=== PATIENT | female | born 1995 | race Caucasian/White ===

== ENCOUNTER 2021-05-27 11:12 | Inpatient (IN) | payer SELFPAY ==
[2021-05-27] VITALS (11 sets, daily range): BP systolic 157–219; BP diastolic 107–156; PULSE 87–115; RESP 17–18; TEMP 36.4–37; O2SAT 94–97; BMI 39.2
--- NOTE | 2021-05-27 11:37 | ECG_ITS ---
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 Measurements Intervals [place] Rate: 109 P: 22 LA: 120 QRS: -28 QRSD: 75 T: 119 QT: 351 QTc: 473 Interpretive Statements SINUS TACHYCARDIA POSSIBLE LEFT ATRIAL ENLARGEMENT [-0.1mV P WAVE IN V1/V2] BORDERLINE LEFT AXIS DEVIATION [QRS AXIS < -20] LEFT VENTRICULAR HYPERTROPHY AND ST-T CHANGE [VOLTAGE CRITERIA PLUS ST/T ABNORMALITY] Compared to ECG 05/28/2019 02:55:39 No significant changes Electronically Signed On 05-27-2021 19:32:29 CDT by Arianne Ivan M.D. [id number]
--- NOTE | 2021-05-27 12:43 | PC.PHAR ---
PT STATES SHE TAKES CARE OF HER OWN MEDICATIONS-PT STATES SHE TAKES NO RX MEDICATIONS PT STATES SHE HASNT TAKEN SINCE DECEMBER EXT MED HISTORY SHOWS CRESTOR 40MG DAILY FILLED ON 12/16/20 90D/S, PROZAC 40MG DAILY FILLED 12/14/20 30D/S,QUETIAPINE 100MG BID FILLED 12/09/20 30D/S-PT STATES SHE ONLY TAKES OTC MEDS
[2021-05-27] MEDS: nicotine 21 mg Patch 1 PATCH TRANSDERMA (12:47)
[2021-05-27] MEDS: metoprolol tartrate 25 mg Tablet PO (12:47)
[2021-05-27 12:56] LABS: Basophils # 0.1 10^3/uL (0.0-0.1); Basophils % 0.8 %; Eosinophils # 0.1 10^3/uL (0.0-0.8); Hematocrit 44.5 % (37.0-47.0); Hemoglobin 15.4 g/dL (11.5-15.3); Lymphocytes # 4.1 10^3/uL (0.8-4.8); Lymphocytes % 28.7 %; Mean Corpuscular HGB Conc 34.6 g/dL (30.0-36.0); Mean Corpuscular Volume 89.5 fl (81-99); Mean Platelet Volume 9.4 fL (7.4-10.4); Monocytes # 0.8 10^3/uL (0.2-0.9); Monocytes % 5.6 %; Neutrophils # 8.99 10^3/uL (1.8-7.7); Neutrophils % 63.5 %; Nucleated Red Blood Cells % 0 %; Platelet Count 358 10^3/cmm (130-400); Red Blood Count 4.97 10^6/uL (4.1-5.3); Red Cell Distribution Width 12.8 % (12.1-15.1); White Blood Count 14.2 10^3/uL (4.0-10.0)
--- NOTE | 2021-05-27 13:17 | W.ED.PSYCH ---
HPI - Psych General: Chief Complaint: Psychiatric Symptoms Stated Complaint: SI/ HTN Time Seen by Provider: 05/27/21 11:34 History of Present Illness: HPI Narrative: Patient is a 26-year-old female with past medical history of major depression stroke and pulmonary artery stenosis. She is here with complaints of suicidal ideation Patient states she has had some difficulty with personal relationships over the last several weeks. She is here because she intends on killing herself. Her plan is to do so with a large amount of pills. She has been taking as she says about 100 Benadryl over the last week only 2 in the last 48 hours. Has had to alcoholic drinks in the last day. Does have a history of methamphetamine use but has not used in the last 2 weeks and states that she inhales does not use IV drugs. She does have a history of psychiatric hospitalization last 1 was at age 13. She has not had a suicide attempt since then but does feel that if she went home that she probably would try to kill herself. She is here voluntarily for admittance She is not been taking any psychiatric medicines or any other medicines. Is currently hypertensive. Has a history of a stroke that she was in the ICU for 11 days 2 years ago. Has been under the care of a community associate for congenital pulmonary artery stenosis but is not seen him in quite some time Denies fevers chills chest pain nausea vomiting diarrhea altered mental status syncope or shortness of breath Review of Systems General: Reports: 10 or more systems reviewed and unremarkable except in HPI and below Physical Exam Const: COMMON NORMALS: no acute distress, average body habitus, patient oriented x3 and no limitations HENMT: COMMON NORMALS: normocephalic and atraumatic HEAD & SCALP: normocephalic and atraumatic Resp: COMMON NORMALS: normal respiratory effort, No retractions and clear to auscultation bilaterally AUSCULTATION: clear to auscultation bilaterally Cardio: COMMON NORMALS: regular rate and regular rhythm RATE: regular rate RHYTHM: regular rhythm GI: COMMON NORMALS: Normal to inspection, nondistended, normoactive bowel sounds present Extremity: COMMON NORMALS: normal to inspection and full ROM Neuro: COMMON NORMALS: patient oriented x3, CN's II-XII intact bilaterally, moves all extremities, no focal motor deficits and no sensory deficits noted Psych: COMMON NORMALS: Normal thought process present and speech normal ATTITUDE: Yes calm and Yes engaged ACTIVITY/MOTOR BEHAVIOR: Yes appropriate eye contact and No psychomotor agitation SPEECH: Yes normal speech MOOD & AFFECT: Yes depressed mood THOUGHT PROCESS: Normal thought process present THOUGHT CONTENT: No Normal thought content present, Yes Suicidality present, No Homicidality present and No Phobia(s) present ATTENTION/CONCENTRATION: Yes attention grossly intact MEMORY/COGNITION: Yes memory grossly intact and Yes cognition grossly intact INSIGHT: Good insight present (Psych) JUDGEMENT: Poor judgement present (Psych) Course ED course: Patient is is here voluntarily to be admitted to psychiatry. However sure blood pressure is been extremely high ranging from to 20 on admission were. Gave her a dose of oral metoprolol as well as 2 doses of IV V and hydralazine we will get her blood pressure into the 170s but she does still creep up into the 180s. She is not having any symptoms no chest pain shortness of breath or anything she will call us hypertensive emergency. However should I cannot medically clear at this time for psychiatry. Spoke to hospitalist who agrees to admit her for blood pressure evaluation Patient is not Vital Signs: Vital signs: Vital Signs Temperature 97.6 F 05/27/21 11:20 Pulse Rate 91 05/27/21 16:30 Respiratory Rate 18 05/27/21 16:30 Blood Pressure 177/128 05/27/21 16:30 Pulse Oximetry 94 05/27/21 16:30 MDM - Psych MDM Narrative: Medical decision making narrative: Differential includes suicidality depression hypothyroidism. Patient is actively suicidal and wishes to be admitted to psychiatric facility. I agree that she should not be able to leave AGAINST MEDICAL ADVICE and does need to be admitted. Will get standard psychiatric labs EKG test. Given her hypertension we will give her a dose of metoprolol as well. She has been taking carvedilol in the past Lab Data: Labs: Lab Results 05/27/21 05/27/21 05/27/21 Range/Units 12:23 12:23 12:23 WBC 14.2 H (4.0-10.0) 10^3/ uL RBC 4.97 (4.1-5.3) 10^6/u L Hgb 15.4 H (11.5-15.3) g/dL Hct 44.5 (37.0-47.0) % MCV 89.5 (81-99) fl MCH 31.0 (28.0-34.0) pg MCHC 34.6 (30.0-36.0) g/dL RDW 12.8 (12.1-15.1) % Plt Count 358 (130-400) 10^3/c mm MPV 9.4 (7.4-10.4) fL Neut % (Auto) 63.5 % Lymph % (Auto) 28.7 % [place] % (Auto) 5.6 % Eos % (Auto) 1.0 % Baso % (Auto) 0.8 % Neut # (Auto) 8.99 H (1.8-7.7) 10^3/u L Lymph # (Auto) 4.1 (0.8-4.8) 10^3/u L [place] # (Auto) 0.8 (0.2-0.9) 10^3/u L Eos # (Auto) 0.1 (0.0-0.8) 10^3/u L Baso # (Auto) 0.1 (0.0-0.1) 10^3/u L Nucleated RBC % (a uto) 0 % Nucleated RBCs # 0.0 /100WBC Sodium 138 (136-145) mmol/L Potassium 3.7 (3.5-5.1) mmol/L Chloride 100 (98-107) mmol/L Carbon Dioxide 23 (22-29) mmol/L Anion Gap 18.7 (5-19) BUN 10 (6-20) mg/dL Creatinine 0.6 (0.5-0.9) mg/dL GFR Calculation 119.0 (90-130) mL/min Glucose 186 H (65-115) mg/dL Calculated Osmolal ity 290 (285-295) mOsm/k g Calcium 9.5 (8.5-10.5) mg/dL Total Bilirubin 0.7 (0.15-1.2) mg/dL AST 13 (0-32) U/L ALT 14 (0-33) U/L Alkaline Phosphata se 89 (35-105) IU/L Troponin T Baselin e (0-10) ng/L Troponin T 120 Min absentee-shawnee (0-10) ng/L Delta Troponin T (0-10) ABS# Total Protein 7.5 (6.6-8.7) g/dL Albumin 4.2 (3.5-5.2) g/dL Globulin 3.3 (1.3-4.6) g/dL TSH 0.66 (0.27-4.20) uIU/ mL HCG, Qual Negative (Negative) Urine Color (Yellow) Urine Appearance (CLEAR) Urine pH (5-7) Ur Specific Gravit y (1.005-1.030) Urine Protein (Negative) Urine Glucose (UA) (Normal) Urine Ketones (Negative) Urine Blood (Negative) Urine Nitrate (Negative) Urine Bilirubin (Negative) Urine Urobilinogen (Negative) mg/dL Ur Leukocyte Charity ase (Negative) Urine RBC (0-2) /hpf Urine WBC (0-5) /hpf Ur Squamous Epith Cells (0-5) /hpf Amorphous Sediment Urine Bacteria (NONE) /hpf Salicylates < 0.3 L (3-10) mg/dL Urine Opiates Scre en (Negative) ng/mL Acetaminophen < 5.0 L (10-30) ug/mL Ur Barbiturates Sc reen (Negative) ng/mL Ur Phencyclidine S crn (Negative) ng/mL Ur Amphetamines Sc reen (Negative) ng/mL U Benzodiazepines Scrn (Negative) ng/mL Urine Cocaine Scre en (Negative) ng/mL U Marijuana (THC) Screen (Negative) ng/mL Ethyl Alcohol < 10 (0-10) mg/dL 05/27/21 05/27/21 05/27/21 Range/Units 12:23 12:23 12:23 WBC (4.0-10.0) 10^3/ uL RBC (4.1-5.3) 10^6/u L Hgb (11.5-15.3) g/dL Hct (37.0-47.0) % MCV (81-99) fl MCH (28.0-34.0) pg MCHC (30.0-36.0) g/dL RDW (12.1-15.1) % Plt Count (130-400) 10^3/c mm MPV (7.4-10.4) fL Neut % (Auto) % Lymph % (Auto) % [place] % (Auto) % Eos % (Auto) % Baso % (Auto) % Neut # (Auto) (1.8-7.7) 10^3/u L Lymph # (Auto) (0.8-4.8) 10^3/u L [place] # (Auto) (0.2-0.9) 10^3/u L Eos # (Auto) (0.0-0.8) 10^3/u L Baso # (Auto) (0.0-0.1) 10^3/u L Nucleated RBC % (a uto) % Nucleated RBCs # /100WBC Sodium (136-145) mmol/L Potassium (3.5-5.1) mmol/L Chloride (98-107) mmol/L Carbon Dioxide (22-29) mmol/L Anion Gap (5-19) BUN (6-20) mg/dL Creatinine (0.5-0.9) mg/dL GFR Calculation (90-130) mL/min Glucose (65-115) mg/dL Calculated Osmolal ity (285-295) mOsm/k g Calcium (8.5-10.5) mg/dL Total Bilirubin (0.15-1.2) mg/dL AST (0-32) U/L ALT (0-33) U/L Alkaline Phosphata se (35-105) IU/L Troponin T Baselin e 14 H (0-10) ng/L Troponin T 120 Min absentee-[place] (0-10) ng/L Delta Troponin T (0-10) ABS# Total Protein (6.6-8.7) g/dL Albumin (3.5-5.2) g/dL Globulin (1.3-4.6) g/dL TSH (0.27-4.20) uIU/ mL HCG, Qual (Negative) Urine Color Yellow (Yellow) Urine Appearance Cloudy (CLEAR) Urine pH 5 (5-7) Ur Specific Gravit y 1.020 (1.005-1.030) Urine Protein 3+ H (Negative) Urine Glucose (UA) 2+ H (Normal) Urine Ketones Negative (Negative) Urine Blood Trace H (Negative) Urine Nitrate Positive H (Negative) Urine Bilirubin 1+ H (Negative) Urine Urobilinogen Norm (Negative) mg/dL Ur Leukocyte Charity ase 1+ H (Negative) Urine RBC 5-10 H (0-2) /hpf Urine WBC 25-40 H (0-5) /hpf Ur Squamous Epith Cells 5-10 H (0-5) /hpf Amorphous Sediment Not Reportable Urine Bacteria 4+ H (NONE) /hpf Salicylates (3-10) mg/dL Urine Opiates Scre en Negative (Negative) ng/mL Acetaminophen (10-30) ug/mL Ur Barbiturates Sc reen Negative (Negative) ng/mL Ur Phencyclidine S crn Negative (Negative) ng/mL Ur Amphetamines Sc reen Negative (Negative) ng/mL U Benzodiazepines Scrn Negative (Negative) ng/mL Urine Cocaine Scre en Negative (Negative) ng/mL U Marijuana (THC) Screen Negative (Negative) ng/mL Ethyl Alcohol (0-10) mg/dL 05/27/21 Range/Units 15:23 WBC (4.0-10.0) 10^3/ uL RBC (4.1-5.3) 10^6/u L Hgb (11.5-15.3) g/dL Hct (37.0-47.0) % MCV (81-99) fl MCH (28.0-34.0) pg MCHC (30.0-36.0) g/dL RDW (12.1-15.1) % Plt Count (130-400) 10^3/c mm MPV (7.4-10.4) fL Neut % (Auto) % Lymph % (Auto) % [place] % (Auto) % Eos % (Auto) % Baso % (Auto) % Neut # (Auto) (1.8-7.7) 10^3/u L Lymph # (Auto) (0.8-4.8) 10^3/u L [place] # (Auto) (0.2-0.9) 10^3/u L Eos # (Auto) (0.0-0.8) 10^3/u L Baso # (Auto) (0.0-0.1) 10^3/u L Nucleated RBC % (a uto) % Nucleated RBCs # /100WBC Sodium (136-145) mmol/L Potassium (3.5-5.1) mmol/L Chloride (98-107) mmol/L Carbon Dioxide (22-29) mmol/L Anion Gap (5-19) BUN (6-20) mg/dL Creatinine (0.5-0.9) mg/dL GFR Calculation (90-130) mL/min Glucose (65-115) mg/dL Calculated Osmolal ity (285-295) mOsm/k g Calcium (8.5-10.5) mg/dL Total Bilirubin (0.15-1.2) mg/dL AST (0-32) U/L ALT (0-33) U/L Alkaline Phosphata se (35-105) IU/L Troponin T Baselin e (0-10) ng/L Troponin T 120 Min absent[place] 12.46 H (0-10) ng/L Delta Troponin T -1.54 L (0-10) ABS# Total Protein (6.6-8.7) g/dL Albumin (3.5-5.2) g/dL Globulin (1.3-4.6) g/dL TSH (0.27-4.20) uIU/ mL HCG, Qual (Negative) Urine Color (Yellow) Urine Appearance (CLEAR) Urine pH (5-7) Ur Specific Gravit y (1.005-1.030) Urine Protein (Negative) Urine Glucose (UA) (Normal) Urine Ketones (Negative) Urine Blood (Negative) Urine Nitrate (Negative) Urine Bilirubin (Negative) Urine Urobilinogen (Negative) mg/dL Ur Leukocyte Charity ase (Negative) Urine RBC (0-2) /hpf Urine WBC (0-5) /hpf Ur Squamous Epith Cells (0-5) /hpf Amorphous Sediment Urine Bacteria (NONE) /hpf Salicylates (3-10) mg/dL Urine Opiates Scre en (Negative) ng/mL Acetaminophen (10-30) ug/mL Ur Barbiturates Sc reen (Negative) ng/mL Ur Phencyclidine S crn (Negative) ng/mL Ur Amphetamines Sc reen (Negative) ng/mL U Benzodiazepines Scrn (Negative) ng/mL Urine Cocaine Scre en (Negative) ng/mL U Marijuana (THC) Screen (Negative) ng/mL Ethyl Alcohol (0-10) mg/dL Discharge Plan Discharge Patient Disposition: Admitted As Inpatient Clinical Impression: Suicidal ideation, Hypertension Condition: Stable Prescriptions: No Action Tylenol Arthritis Pain 650 mg Tablet Extended Release 1,300 mg PO Q12H PRN (Reason: Pain) RF: 0 Benadryl 25 mg Capsule 50 mg PO Q4H PRN (Reason: UNKNOWN) RF: 0 Tylenol PM Extra Strength 25-500 mg Tablet 2 tab PO Q4H PRN (Reason: UNKNOWN) RF: 0 NyQuil Liquicaps Capsule 2 cap PO Q4H PRN (Reason: UNKNOWN) RF: 0 Referrals: Margarita Ward FNP [Primary Care Provider] - Discharge Activity: Resume usual activity Coding Level of Care Code ED Radiophone Operator for Chg Fwd Exam Comprehensive
[2021-05-27 13:25] LABS: Alanine Aminotransferase 14 U/L (0-33); Albumin Level 4.2 g/dL (3.5-5.2); Alkaline Phosphatase 89 IU/L (35-105); Anion Gap 18.7 (5-19); Aspartate Amino Transferase 13 U/L (0-32); Blood Urea Nitrogen 10 mg/dL (6-20); Calcium 9.5 mg/dL (8.5-10.5); Carbon Dioxide 23 mmol/L (22-29); Chloride 100 mmol/L (98-107); Globulin 3.3 g/dL (1.3-4.6); Glucose 186 mg/dL (65-115); Osmolality Calculated 290 mOsm/kg (285-295); Potassium 3.7 mmol/L (3.5-5.1); Sodium 138 mmol/L (136-145); Thyroid Stimulating Hormone 0.66 uIU/mL (0.27-4.20); Total Bilirubin 0.7 mg/dL (0.15-1.2); Total Protein 7.5 g/dL (6.6-8.7)
[2021-05-27 13:27] LABS: Acetaminophen < 5.0 ug/mL (10-30); Alcohol Level < 10 mg/dL (0-10); Salicylate < 0.3 mg/dL (3-10)
[2021-05-27 13:32] LABS: Add Urine Microscopic? YES; Bilirubin Urine 1+ (Negative); Blood Urine Trace (Negative); Glucose Urine UA 2+ (Normal); HCG Qualitative Urine. Negative (Negative); Ketones Urine Negative (Negative); Leukocyte Esterase Urine 1+ (Negative); Nitrate Urine Positive (Negative); Protein Urine 3+ (Negative); Urine Appearance Cloudy (CLEAR); Urine Color Yellow (Yellow); Urobilinogen Urine Norm (Negative); pH Urine 5 (5-7)
[2021-05-27 13:43] LABS: Add Urine Culture? Yes; Bacteria Urine 4+ /hpf; WBC Urine 25-40 /hpf (0-5)
[2021-05-27 13:53] LABS: Amphetamines Screen Urine Negative (Negative); Barbiturates Screen Urine Negative (Negative); Benzodiazepines Screen Urine Negative (Negative); Cocaine Screen Urine Negative (Negative); Opiate Screen Urine Negative (Negative); PCP Screen Urine Negative (Negative); THC Screen Urine Negative (Negative)
[2021-05-27] MEDS: metoprolol tartrate 1 mg/1 mL SDV 5 mL 2.5 MG IVP (14:23)
[2021-05-27 14:53] LABS: Troponin(5th) Baseline 14 ng/L (0-10)
[2021-05-27] MEDS: metoprolol tartrate 1 mg/1 mL SDV 5 mL 5 MG IVP (16:02)
[2021-05-27 16:08] LABS: Troponin 5 2HR 12.46 ng/L (0-10)
[2021-05-27 16:10] LABS: Troponin 5 2HR Delta -1.54 ABS# (0-10)
[2021-05-27] MEDS: hyDRALAzine 25 mg Tablet PO ×2 (16:28→21:19)
--- NOTE | 2021-05-27 20:59 | PM.HP ---
Providers/Chief Complaint Admitting Physician: Naz Rose Primary Care Provider: Margarita Ward Chief Complaint: SI/ HTN History of Present Illness 26 year old with past medical history of methamphetamine abuse, active tobacco abuse, genital herpes, diabetes mellitus, CVA ( left cortical / subcortical with in distal MCA territory), and hypertension who is presenting to ER with suicidal ideations. Also noted to have intermittent episodes of palpitation. Denied chest pain or dyspnea. No recent fever, chill, nausea or vomiting. During work up in ER patient was noted to be hypertensive. She stated she has not been compliant with any of her chronic medication including antihypertensive and insulin since december of this year. Patient was previously admitted at [facility] from 05/29 to 06/27/2019 during which time she was noted to have hypertensive emergency, CVA, ATN. Patient was discharged on Coreg 25 mg Po BID, Hydralazine 25 mg PO q8hr, Lantus 20 units Qhs and Novolog 5 units TIDAC. Lab work up on arrival to ER showed WBC of 14.2, hemoglobin of 15.4, hematocrit 44.5 and a platelet count of 358. Sodium 138, potassium 3.7, chloride 100, bicarb 23, BUN 10 and creatinine of 0.6. Glucose of 186. LFTs within normal limits. Initial delta troponin of -1.54. beta hCG negative. TSH was 0.66. urinalysis showed 2+ glucose, trace blood, positive nitrites, 1+ leukocyte esterase, 25 to 30 wbcs and 4+ bacteria. Urinary drug screen was negative. ETOH level negative.Initial vital signs showed systolic blood pressure was over 200 and diastolic was over 130. In emergency room patient was given metoprolol 25 mg p.o. x1, 7.5 mg IV, hydralazine 25 mg p.o. x1. Patient was also placed on 96 hour hold. Review of Systems General: Reports: 10 or more systems reviewed and unremarkable except in HPI and below Medications/Allergies Home Medications Medication Instructions Recorded Confirmed Last Taken Type acetaminophen [Tylenol Arthritis 1,300 mg PO Q12H PRN 05/27/21 05/27/21 Unknown History Pain] diphenhydramine HCl [Benadryl] 50 mg PO Q4H PRN 05/27/21 05/27/21 05/26/21 History diphenhydramine-acetaminophen 2 tab PO Q4H PRN 05/27/21 05/27/21 Unknown History [Tylenol PM Extra Strength] [id number]-acetaminophen 2 cap PO Q4H PRN 05/27/21 05/27/21 05/26/21 History [NyQuil Liquicaps] Allergies Allergy/AdvReac Type Severity Reaction Status Date / Time Unable to Assess Allergy Unverified 05/27/21 20:08 PFSH Acute PFSH: Medical History (Updated 05/27/21 @ 21:04 by Naz Rose MD) Diabetes mellitus History of CVA (cerebrovascular accident) Hypertension Methamphetamine abuse No pertinent family history Surgical History (Updated 05/27/21 @ 21:02 by Naz Rose MD) No pertinent past surgical history Social History (Updated 05/27/21 @ 21:03 by Naz Rose MD) Smoking and tobacco status: current every day smoker Alcohol intake: never Substance/Drug Use: former Vitals/I&O/Wt Last Vital Signs Temp 98.6 F 05/27/21 20:06 Pulse 89 05/27/21 20:06 Resp 17 05/27/21 20:06 BP 161/120 05/27/21 20:06 Pulse Ox 95 05/27/21 20:06 Weight last 48 hrs Weight 91.172 kg Weight 91.172 kg Physical Exam Narrative: EXAM NARRATIVE: General-Alert awake oriented x3 HEENT -grossly unremarkable CVS- normal sinus rhythm , no murmurs Chest- nonlabored respiration , clear to auscultation Abdomen- nondistended Extremities-no edema Data : 05/27/21 12:23 05/27/21 12:23 A&P Assessment and plan (1) Hypertension: Status: Acute Qualifiers: Hypertension type: unspecified Qualified Code(s): I10 - Essential (primary) hypertension (2) Suicidal ideation: Status: Acute (3) Diabetes mellitus: Status: Acute (4) Abnormal urinalysis: Status: Acute Additional A&P Information Hypertensive Urgency Hydralazine 25 mg p.o. q.i.d. Lisinopril 5 mg PO daily Labetalol 20 mg IV p.r.n. Will likely resume Coreg in am Will consider adding CCB Monitor on Tele ECHO from 2019 reviewed - pEF Gradual improvement over next 12-24hr Abnormal UA suspected UTI Rocephin 1g IV q24hr Follow up on culture Suicidal Ideation 96 hr hold Suicide sitter Psych consult once medically stable Likely will need inpatient BG unit admission Diabetes Mellitus Check a1c in AM Sliding scale insulin Lantus 10 units QHS Diabetic Diet Hx of L. Distal MCA CVA No residual deficits Aspirin 81 mg PO daily Check lipid panel in am Neuro checks q4hr Tobacco Abuse Nicotine Patch Hx of Meth abuse UDS negative Denied active use DVT ppx Lovenox 40 mg SQ daily Attestations Medical Necessity Statement*: Require 2 midnight stay in hospital for evaluation treatment of hypertensive emergency and suicidal ideation Time Spent in Patient Care: Greater than 35 minutes (>than 50% of time spent in counselling and/or direct pt care on unit). Coding Level of Care Code Acute Personal Injury Legal Assistant for Rita Mccartney Diagnoses Hypertension I10 Hypertension type: unspecified Suicidal ideation R45.851 Diabetes mellitus E11.9 Abnormal urinalysis R82.90
[2021-05-27] MEDS: enoxaparin 40 mg/0.4 mL Syringe SUBCUT (21:20)
[2021-05-27 21:33] LABS: Glucose Point of Care 362 mg/dL (70-110)
[2021-05-28] VITALS (10 sets, daily range): BP systolic 126–168; BP diastolic 81–121; PULSE 87–107; RESP 17–20; TEMP 36.6–37.1; O2SAT 93–98
[2021-05-28] MEDS: temazepam 15 mg Capsule 30 MG PO (00:39)
[2021-05-28] MEDS: labetalol 5 mg/mL SDV 20mL 20 MG IVP ×2 (02:51→14:55)
--- NOTE | 2021-05-28 05:06 | PC.NURSE ---
Shift Note Frequent safety and comfort rounds continue. Orders and/or nursing care completed as indicated. Patient monitored for response to intervention and treatment(s). Education provided includes medication side effects of restoril and novolog. Patient verbalized understanding. Patient was restless at the beginning of shift but after receiving the restoril she rested well. Patient did not complain of any pain or have any other complaints. Patient is currently resting comfortably in bed. Will continue to monitor.
[2021-05-28 06:44] LABS: Glucose Point of Care 145 mg/dL (70-110)
[2021-05-28 08:14] LABS: Glucose Point of Care 170 mg/dL (70-110)
[2021-05-28] MEDS: hyDRALAzine 25 mg Tablet PO ×4 (08:39→20:55)
[2021-05-28] MEDS: lisinopril 5 mg Tablet PO (08:39)
[2021-05-28 09:51] LABS: Basophils # 0.1 10^3/uL (0.0-0.1); Basophils % 0.8 %; Eosinophils # 0.1 10^3/uL (0.0-0.8); Eosinophils % 1.2 %; Hematocrit 41.6 % (37.0-47.0); Lymphocytes # 3.5 10^3/uL (0.8-4.8); Lymphocytes % 30.9 %; Mean Corpuscular HGB Conc 33.7 g/dL (30.0-36.0); Mean Corpuscular Hemoglobin 31.5 pg (28.0-34.0); Mean Corpuscular Volume 93.7 fl (81-99); Mean Platelet Volume 9.6 fL (7.4-10.4); Monocytes # 0.6 10^3/uL (0.2-0.9); Neutrophils % 61.7 %; Nucleated Red Blood Cells % 0 %; Platelet Count 299 10^3/cmm (130-400); Red Blood Count 4.44 10^6/uL (4.1-5.3); White Blood Count 11.4 10^3/uL (4.0-10.0)
[2021-05-28 10:50] LABS: Chol HDL Ratio 8.94 mg/dL (0.0-4.40); Cholesterol 286 mg/dL (0-200); HDL Cholesterol 32 mg/dL (60-100); Triglycerides 576 mg/dL (0-150)
[2021-05-28 10:51] LABS: Alanine Aminotransferase 13 U/L (0-33); Albumin Level 3.5 g/dL (3.5-5.2); Alkaline Phosphatase 72 IU/L (35-105); Anion Gap 17.4 (5-19); Aspartate Amino Transferase 13 U/L (0-32); Blood Urea Nitrogen 15 mg/dL (6-20); Calcium 9.3 mg/dL (8.5-10.5); Carbon Dioxide 24 mmol/L (22-29); Chloride 99 mmol/L (98-107); Globulin 3.2 g/dL (1.3-4.6); Glomerular Filtration Rate 99.6 mL/min (90-130); Glucose 233 mg/dL (65-115); Magnesium 1.3 mg/dL (1.7-2.3); Osmolality Calculated 292 mOsm/kg (285-295); Potassium 3.4 mmol/L (3.5-5.1); Sodium 137 mmol/L (136-145); Thyroid Stimulating Hormone 0.57 uIU/mL (0.27-4.20); Total Bilirubin 0.6 mg/dL (0.15-1.2); Total Protein 6.7 g/dL (6.6-8.7)
[2021-05-28 11:31] LABS: Glucose Point of Care 178 mg/dL (70-110)
--- NOTE | 2021-05-28 14:11 | PM.PN ---
Subjective Subjective: Interval history: No new complaints overnight. Patients blood pressure had improved. Denies chest pain or shortness of breath. Medications: Reviewed: Yes Vitals/I&O/Wt Last Vital Signs Temp 98.2 F 05/28/21 03:43 Pulse 89 05/28/21 06:58 Resp 17 05/28/21 03:43 BP 145/99 05/28/21 11:19 Pulse Ox 93 05/28/21 03:43 05/27/21 05/28/21 05/28/21 22:59 06:59 14:59 Intake Total 240 / 240 Balance 240 / 240 Weight last 48 hrs Weight 91.172 kg Weight 91.172 kg Physical Exam Narrative: EXAM NARRATIVE: General-Alert awake oriented x3 HEENT -grossly unremarkable CVS- normal sinus rhythm , no murmurs Chest- nonlabored respiration , clear to auscultation Abdomen- nondistended Extremities-no edema Data : 05/28/21 09:08 05/28/21 09:08 A&P Assessment and plan (1) Hypertension: Status: Acute Qualifiers: Hypertension type: unspecified Qualified Code(s): I10 - Essential (primary) hypertension (2) Suicidal ideation: Status: Acute (3) Diabetes mellitus: Status: Acute (4) Abnormal urinalysis: Status: Acute Additional A&P Information Hypertensive Urgency Hydralazine 25 mg p.o. q.i.d. Lisinopril 5 mg PO daily Labetalol 20 mg IV p.r.n. Coreg 25 mg PO BID added in am Will consider adding CCB if needed Monitor on Tele ECHO from 2019 reviewed - pEF Abnormal UA suspected UTI Ciprofloxacin 250 mg PO BID x 3 days Follow up on culture Suicidal Ideation 96 hr hold Suicide sitter Psych consult once medically stable Likely will need inpatient BG unit admission Diabetes Mellitus Sliding scale insulin Lantus 10 units QHS Diabetic Diet Hx of L. Distal MCA CVA No residual deficits Aspirin 81 mg PO daily Check lipid panel in am Neuro checks q4hr Tobacco Abuse Nicotine Patch Hx of Meth abuse UDS negative Denied active use DVT ppx Lovenox 40 mg SQ daily Attestations Medical Necessity Statement*: Will require further hospitalization for management o hypertensive urgency in suicidal ideation Time Spent in Patient Care: Greater than 35 minutes Coding Level of Care Code Acute Construction Estimator for [facility] Fwd Diagnoses Hypertension I10 Hypertension type: unspecified Suicidal ideation R45.851 Diabetes mellitus E11.9 Abnormal urinalysis R82.90
[2021-05-28] MEDS: nicotine 21 mg Patch 1 PATCH TRANSDERMA (14:55)
[2021-05-28 15:30] LABS: LDL Cholesterol Direct 180 mg/dL (0-100)
[2021-05-28 15:48] LABS: Estmated Average Glucose 180; Hemoglobin A1C 7.9 % (4.0-6.0)
[2021-05-28] MEDS: LORazepam 2 mg/mL INJ 1 mL 0.5 MG IVP (16:55)
[2021-05-28 17:55] LABS: Glucose Point of Care 277 mg/dL (70-110)
[2021-05-28 20:38] LABS: Glucose Point of Care 261 mg/dL (70-110)
[2021-05-28] MEDS: carvedilol 25 mg Tablet PO (20:55)
[2021-05-28] MEDS: ciprofloxacin 500 mg Tablet 250 MG PO (20:55)
[2021-05-28] MEDS: enoxaparin 40 mg/0.4 mL Syringe SUBCUT (20:56)
[2021-05-29] VITALS (8 sets, daily range): BP systolic 147–184; BP diastolic 94–113; PULSE 87–98; RESP 18; TEMP 36.5–37; O2SAT 90–97
[2021-05-29] MEDS: LORazepam 2 mg/mL INJ 1 mL 0.5 MG IVP ×3 (02:06→21:08)
[2021-05-29 06:40] LABS: Glucose Point of Care 197 mg/dL (70-110)
--- NOTE | 2021-05-29 08:09 | PC.CHAP ---
Pastoral Care Encounter/Spiritual Assessment Type of Contact [] Declined dental instrument maker visit [] Patient/Family/Request visit [] Outpatient visit [] Follow-up visit [] Physician referral [] Code/Alert [X] Routine visit [] Staff referral [] Actively dying [X] Patient sleeping [] Family support [] [] Out of room [] Palliative care [] [] Receiving care in room [] Pre-surgical visit [] Trauma [] Long length of stay [] ICU visit [] Other: Relational/Emotional Strength [] Patient feels connected with others/family/visitors/staff [] Distress [] Loneliness/isolation [] Abandonment Spirituality of Patient [] Person of [place] [] Attends Zoroastrian of their [place] [] Believes in Prayer [] Reads Bible or Voodoo materials [] There are Spiritual issues to be addressed Automatic Riveting Machine Operator Interventions [] Prayer [] Active listening [] Non-anxious presence [] Spiritual/emotional support [] Crisis/trauma care [] Spiritual counseling [] Bereavement support [] Provided bereavement packet [] Provided Bible/devotional materials [] Provided toy/stuffed animal, coloring book to patient or family member [] Provided Communion [] Anointing/[place] [] Salvation [] Completed spiritual assessment [] Other: Impact on Illness or Injury [] Angry [] Fearful [] Anxious [] Often cries [] Exhaustion [] Unable to work [] Unable to attend anabaptist [] Unable to walk/stand [] Unable to read [] Unable to drive [] Unable to eat/drink [] Unable to sleep [] Unable to be with family [] Patient intubated [] Other: Summary Time spent with patient
[2021-05-29] MEDS: hyDRALAzine 25 mg Tablet PO (09:10)
[2021-05-29] MEDS: carvedilol 25 mg Tablet PO ×2 (09:10→18:18)
[2021-05-29] MEDS: nicotine 21 mg Patch 1 PATCH TRANSDERMA (09:10)
[2021-05-29] MEDS: lisinopril 5 mg Tablet PO (09:10)
[2021-05-29] MEDS: aspirin 81 mg EC Tablet PO (09:10)
[2021-05-29] MEDS: ciprofloxacin 500 mg Tablet 250 MG PO ×2 (09:10→21:11)
[2021-05-29 10:55] LABS: Glucose Point of Care 200 mg/dL (70-110)
[2021-05-29] MEDS: polyethylene glycol 3350 Pkt 17 gm PO (13:06)
[2021-05-29] MEDS: hyDRALAzine 25 mg Tablet 50 MG PO ×2 (13:07→18:18)
[2021-05-29 16:51] LABS: Glucose Point of Care 212 mg/dL (70-110)
--- NOTE | 2021-05-29 17:20 | PM.PN ---
Subjective Subjective: Interval history: Patient has been very anxiousAnd tearful overnight. Is wanting to be transferred to behavior health unit. No beds currently. Continued to be hypertensive. No chest pain.. Medications: Reviewed: Yes Vitals/I&O/Wt Last Vital Signs Temp 98.0 F 05/29/21 15:56 Pulse 98 05/29/21 15:56 Resp 18 05/29/21 15:56 BP 158/99 05/29/21 15:56 Pulse Ox 90 05/29/21 15:56 05/29/21 05/29/21 05/29/21 06:59 14:59 22:59 Intake Total 600 / 600 Output Total 0 / 0 Balance 0 / 720 600 / 600 Weight last 48 hrs Weight 91.172 kg Physical Exam Narrative: EXAM NARRATIVE: General-Alert awake oriented x3 HEENT -grossly unremarkable CVS- normal sinus rhythm , no murmurs Chest- nonlabored respiration , clear to auscultation Abdomen- nondistended Extremities-no edema Data : 05/28/21 09:08 05/28/21 09:08 Micro: Microbiology 05/27/21 12:23 Urine Culture - Final Urine,Clean Catch Escherichia coli A&P Assessment and plan (1) Hypertension: Status: Acute Qualifiers: Hypertension type: unspecified Qualified Code(s): I10 - Essential (primary) hypertension (2) Suicidal ideation: Status: Acute (3) Diabetes mellitus: Status: Acute (4) Abnormal urinalysis: Status: Acute Additional A&P Information Hypertensive Urgency Hydralazine 25 mg p.o. q.i.d. - Increased to 50 mg PO Q6hr Lisinopril 5 mg PO daily Coreg 25 mg PO BID D.C Lebatalol Will consider adding CCB if needed Monitor on Tele ECHO from 2019 reviewed - pEF Exacerbated with anxiety Outpatient follow up for 2ndary htn work up Abnormal UA suspected UTI Ciprofloxacin 250 mg PO BID x 3 days Follow up on culture Repeat labs in am Suicidal Ideation 96 hr hold Suicide sitter Psych consult once medically stable Likely will need inpatient BG unit admission Diabetes Mellitus Sliding scale insulin Lantus 10 units QHS Diabetic Diet Hx of L. Distal MCA CVA No residual deficits Aspirin 81 mg PO daily Neuro checks q4hr Tobacco Abuse Nicotine Patch Hx of Meth abuse UDS negative Denied active use DVT ppx Lovenox 40 mg SQ daily Attestations Medical Necessity Statement*: Require further hospitalizationFor management of hypertensive urgency Time Spent in Patient Care: Greater than 35 minutes (>than 50% of time spent in counselling and/or direct pt care on unit). Coding Level of Care Code Acute Tufting Machine Operator Single Needle for g Fwd Diagnoses Hypertension I10 Hypertension type: unspecified Suicidal ideation R45.851 Diabetes mellitus E11.9 Abnormal urinalysis R82.90
[2021-05-29] MEDS: temazepam 15 mg Capsule 30 MG PO (21:11)
[2021-05-29] MEDS: enoxaparin 40 mg/0.4 mL Syringe SUBCUT (21:24)
--- NOTE | 2021-05-29 22:29 | PC.NURSE ---
Patient stats that she is feeling better today but feels a breakdown coming on. No negative thoughts or thoughts of suicide, although she is sad and anxious. Patient expressed concern about resting tonight and says that she was not able to rest the night before due to dreaming of her and waking up very anxious and sad. Patient was tearful when asking her dreams and how they made her feel. Patient states that she gets very sad thinking about her and that everything around her makes her think of her. Patient says that she fears a breakdown because she knows the type of behavior that comes with a breakdown, which is anger and anxiousness causing her act out in violence. This nurse educated patient on depression, anxiety, and SI. Patient was given prescribed Ativan and Restoril. Patient is tearful when expressing that she hasn't felt like anybody has cared or understand her condition and is hopeful to finally get some rest tonight.
[2021-05-30] VITALS (9 sets, daily range): BP systolic 125–168; BP diastolic 83–116; PULSE 84–97; RESP 15–18; TEMP 36.4–37.1; O2SAT 95–98; BMI 39.2
[2021-05-30] MEDS: hyDRALAzine 25 mg Tablet 50 MG PO ×4 (01:13→18:15)
[2021-05-30] MEDS: LORazepam 2 mg/mL INJ 1 mL 0.5 MG IVP ×3 (01:15→20:48)
[2021-05-30 05:49] LABS: Basophils # 0.1 10^3/uL (0.0-0.1); Basophils % 0.9 %; Eosinophils # 0.2 10^3/uL (0.0-0.8); Eosinophils % 1.9 %; Hematocrit 37.6 % (37.0-47.0); Hemoglobin 12.6 g/dL (11.5-15.3); Lymphocytes # 4.3 10^3/uL (0.8-4.8); Lymphocytes % 41.3 %; Mean Corpuscular HGB Conc 33.5 g/dL (30.0-36.0); Mean Corpuscular Hemoglobin 31.3 pg (28.0-34.0); Mean Corpuscular Volume 93.5 fl (81-99); Mean Platelet Volume 10.3 fL (7.4-10.4); Monocytes # 0.6 10^3/uL (0.2-0.9); Monocytes % 5.4 %; Neutrophils # 5.19 10^3/uL (1.8-7.7); Neutrophils % 49.9 %; Nucleated Red Blood Cells % 0 %; Platelet Count 256 10^3/cmm (130-400); Red Blood Count 4.02 10^6/uL (4.1-5.3); Red Cell Distribution Width 12.8 % (12.1-15.1); White Blood Count 10.4 10^3/uL (4.0-10.0)
[2021-05-30 06:07] LABS: Alanine Aminotransferase 10 U/L (0-33); Albumin Level 3.2 g/dL (3.5-5.2); Alkaline Phosphatase 64 IU/L (35-105); Anion Gap 14.8 (5-19); Aspartate Amino Transferase 10 U/L (0-32); Blood Urea Nitrogen 14 mg/dL (6-20); Calcium 8.5 mg/dL (8.5-10.5); Carbon Dioxide 22 mmol/L (22-29); Chloride 104 mmol/L (98-107); Globulin 2.5 g/dL (1.3-4.6); Glomerular Filtration Rate 146.9 mL/min (90-130); Glucose 167 mg/dL (65-115); Magnesium 1.5 mg/dL (1.7-2.3); Osmolality Calculated 288 mOsm/kg (285-295); Potassium 3.8 mmol/L (3.5-5.1); Sodium 137 mmol/L (136-145); Total Bilirubin 0.3 mg/dL (0.15-1.2); Total Protein 5.7 g/dL (6.6-8.7)
[2021-05-30 08:07] LABS: Glucose Point of Care 154 mg/dL (70-110)
[2021-05-30] MEDS: metformin 500 mg Tablet 1000 MG PO ×2 (09:14→18:15)
[2021-05-30] MEDS: ciprofloxacin 500 mg Tablet 250 MG PO (09:15)
[2021-05-30] MEDS: lisinopril 20 mg Tablet PO (09:16)
[2021-05-30] MEDS: carvedilol 25 mg Tablet PO ×2 (09:16→18:15)
[2021-05-30] MEDS: sitagliptin 100 mg Tablet PO (09:18)
[2021-05-30] MEDS: aspirin 81 mg EC Tablet PO (09:18)
[2021-05-30] MEDS: nicotine 21 mg Patch 1 PATCH TRANSDERMA (09:19)
[2021-05-30 10:45] LABS: Glucose Point of Care 151 mg/dL (70-110)
[2021-05-30 10:45] LABS: Glucose Point of Care 221 mg/dL (70-110)
[2021-05-30 11:37] LABS: Glucose Point of Care 201 mg/dL (70-110)
[2021-05-30] MEDS: ondansetron 2 mg/ML SDV 2 mL 4 MG IVP (15:09)
--- NOTE | 2021-05-30 17:07 | P.PN_ITS ---
Subjective Subjective: Interval history: No events overnight. Sitter at bedside. Examination today patient sitting calmly comfortably in bed. States she is anxious. Wants to go to [facility]. Denies any nausea vomiting, headache. States she has been on antihypertensives 3 of them for long time in her life and has not taken any medication for over 3 weeks. Also states she used to take insulin for her diabetes but has not taken any for 3 weeks. Currently denies any nausea vomiting, headache. Medications: Reviewed: Yes Vitals/I&O/Wt Last Vital Signs Temp 98.6 F 05/30/21 15:55 Pulse 97 05/30/21 15:55 Resp 18 05/30/21 15:55 BP 125/87 05/30/21 15:55 Pulse Ox 98 05/30/21 15:55 05/30/21 05/30/21 05/30/21 06:59 14:59 22:59 Intake Total 920 / 920 Balance 920 / 920 Physical Exam Narrative: EXAM NARRATIVE: General-Alert awake oriented x3 HEENT -grossly unremarkable CVS- normal sinus rhythm , no murmurs Chest- nonlabored respiration , clear to auscultation Abdomen- nondistended Extremities-no edema Data : 05/30/21 04:38 05/30/21 04:38 A&P Assessment and plan (1) Hypertension: Status: Acute Qualifiers: Hypertension type: unspecified Qualified Code(s): I10 - Essential (primary) hypertension (2) Suicidal ideation: Status: Acute (3) Diabetes mellitus: Status: Acute (4) Abnormal urinalysis: Status: Acute Additional A&P Information Hypertensive Urgency Blood pressure is better but still elevated. Continue with hydralazine 50 mg every 6 hourly, carvedilol 25 mg twice daily. Increase the dose of lisinopril to 20 mg oral daily. Monitor on Tele ECHO from 2019 reviewed - pEF Exacerbated with anxiety Outpatient follow up for 2ndary htn work up Abnormal UA suspected UTI No dysuria. Continue ciprofloxacin to 50 mg twice daily to finish a 3-day course. No leukocytosis. No fever. Suicidal Ideation 96 hr hold Suicide sitter Psych consult. Likely will need inpatient BG unit admission Diabetes Mellitus Start patient on Januvia, Metformin. Patient is agreeable to take both the medications. Continue with insulin sliding scale at moderate dose protocol. Hx of L. Distal MCA CVA No residual deficits Aspirin 81 mg PO daily Neuro checks q4hr Tobacco Abuse Nicotine Patch Hx of Meth abuse UDS negative Denied active use DVT ppx Lovenox 40 mg SQ daily Patient is medically cleared to be transferred to [facility] once accepted. Patient is to continue taking carvedilol, hydralazine, lisinopril at current dose. Patient is to continue taking Metformin and Januvia along with insulin sliding scale. Patient can stop Metformin if has any diarrhea. Patient to follow-up with a primary care provider with a blood pressure diary in 2 weeks on discharge. Attestations Medical Necessity Statement*: Patient requires further hospitalization for 96- hour hold, suicidal ideation with hypertension and type 2 diabetes mellitus. Time Spent in Patient Care: Greater than 35 minutes (>than 50% of time spent in counselling and/or direct pt care on unit) . Coding Level of Care Code Acute Plastic Surgery Assistant for Rita Blankd Diagnoses Hypertension I10 Hypertension type: unspecified Suicidal ideation R45.851 Diabetes mellitus E11.9 Abnormal urinalysis R82.90
[2021-05-30 17:15] LABS: Glucose Point of Care 225 mg/dL (70-110)
[2021-05-30 20:09] LABS: Glucose Point of Care 209 mg/dL (70-110)
[2021-05-30] MEDS: enoxaparin 40 mg/0.4 mL Syringe SUBCUT (20:20)
[2021-05-30] MEDS: temazepam 15 mg Capsule 30 MG PO (20:50)
[2021-05-31] MEDS: hyDRALAzine 25 mg Tablet 50 MG PO ×4 (01:47→19:19)
--- NOTE | 2021-05-31 02:12 | PC.NURSE ---
Patient verified that she had no known allergies
[2021-05-31 06:00] VITALS: BP 125/81; PULSE 91; RESP 15; TEMP 36.6; O2SAT 96
[2021-05-31 06:57] LABS: Glucose Point of Care 200 mg/dL (70-110)
[2021-05-31 07:45] VITALS: BP 125/81; PULSE 91; RESP 15; TEMP 36.6
--- NOTE | 2021-05-31 08:22 | PM.PN ---
Subjective Subjective: Interval history: In last 24 hours patient was transferred to [facility]. No reported acute events overnight. Has remained hemodynamically stable and afebrile. Blood sugars better controlled. Medications: Reviewed: Yes Vitals/I&O/Wt Last Vital Signs Temp 97.9 F 05/31/21 07:45 Pulse 91 05/31/21 07:45 Resp 15 05/31/21 07:45 BP 125/81 05/31/21 07:45 Pulse Ox 96 05/31/21 06:00 05/30/21 05/31/21 05/31/21 22:59 06:59 14:59 Intake Total 360 / 1280 Balance 360 / 1280 Weight last 48 hrs Weight 91.172 kg Physical Exam Narrative: EXAM NARRATIVE: General-Alert awake oriented x3 HEENT -grossly unremarkable CVS- normal sinus rhythm , no murmurs Chest- nonlabored respiration , clear to auscultation Abdomen- nondistended Extremities-no edema Data : 05/30/21 04:38 05/30/21 04:38 A&P Assessment and plan (1) Hypertension: Status: Acute Qualifiers: Hypertension type: unspecified Qualified Code(s): I10 - Essential (primary) hypertension (2) Suicidal ideation: Status: Acute (3) Diabetes mellitus: Status: Acute (4) Abnormal urinalysis: Status: Acute (5) Noncompliance: Status: Acute Additional A&P Information Hypertensive Urgency: Resolved. Hypertension: Blood pressures better now. Continue with hydralazine 50 every 6, carvedilol 25 twice daily, lisinopril 20 mg oral daily. Repeat CMP in 1 weeks. Patient can be discharged on above medications. ECHO from 2019 reviewed - pEF Exacerbated with anxiety Outpatient follow up for 2ndary htn work up Abnormal UA suspected UTI No dysuria. Continue ciprofloxacin to 50 mg twice daily to finish a 3-day course. No leukocytosis. No fever. Suicidal Ideation As per psychiatric team. Diabetes Mellitus Continue with insulin sliding scale. Continue Januvia and Metformin. Patient is not reporting any allergic reaction for now. Hx of L. Distal MCA CVA No residual deficits Aspirin 81 mg PO daily Neuro checks q4hr Tobacco Abuse Nicotine Patch Hx of Meth abuse UDS negative Denied active use DVT ppx Lovenox 40 mg SQ daily Patient should be discharged on hydralazine 50 every 6, carvedilol 25 twice daily, Nexium 20 mg, Januvia 100 mg, Metformin thousand twice daily. Patient does not have a PCP on file. Will ask manager of case management to help with setting up appointment for PCP on discharge. Repeat CMP in 1 week. Medicine will sign off. Please reconsult if needed. Attestations Medical Necessity Statement*: Requires further hospitalization ion for management of suicidal ideation as per psychiatry, uncontrolled hypertension and diabetes. Time Spent in Patient Care: 16 - 35 minutes Coding Level of Care Code Acute Electrician Manager for [facility] Fwd Diagnoses Hypertension I10 Hypertension type: unspecified Suicidal ideation R45.851 Diabetes mellitus E11.9 Abnormal urinalysis R82.90 Noncompliance Z91.19
[2021-05-31] MEDS: metformin 500 mg Tablet 1000 MG PO ×2 (09:48→17:41)
[2021-05-31] MEDS: lisinopril 20 mg Tablet PO (09:49)
[2021-05-31] MEDS: aspirin 81 mg EC Tablet PO (09:49)
[2021-05-31] MEDS: carvedilol 25 mg Tablet PO ×2 (09:49→17:41)
[2021-05-31] MEDS: nicotine 2 mg Gum BUCCAL ×2 (10:01→15:21)
[2021-05-31] MEDS: hyDROXYzine 25 mg Capsule 50 MG PO ×2 (10:03→21:59)
--- NOTE | 2021-05-31 10:03 | PC.NURSE ---
Addendum entered by Elsa Wylie RN 05/31/21 10:57: PRN VISTARIL FOLLOW UP PRN MEDICATION EFFECTIVE. PT VOICES TO FURTHER C/O ANXIETY AT THIS TIME. Original Note: PRN VISTARIL PRN VISTARIL 50 MG GIVEN PO PER PT C/O ANXIETY/ WILL CONTINUE TO MONITOR FOR MEDICATION EFFECTIVENESS.
[2021-05-31 10:55] LABS: Glucose Point of Care 196 mg/dL (70-110)
[2021-05-31] MEDS: sitagliptin 100 mg Tablet PO (11:18)
[2021-05-31 11:50] LABS: Glucose Point of Care 146 mg/dL (70-110)
[2021-05-31 12:00] VITALS: BP 125/81; PULSE 91; RESP 15; TEMP 36.6
--- NOTE | 2021-05-31 12:24 | NPU.GN ---
[facility] Group Topic: Two true one false General Mood of Group: Patient did attend group, she was properly dressed, on time, and had good hygiene. In group we played a game called 2 true one false. Everyone had to come up with 2 true statements about their self and one false statement about their self, this was a way to get group members to openly talk about themselves. They are able to utilize positive self talk. The group interacted properly and openly. We discussed the purpose of NPU, ways to openly speak with the physician and discussed the purpose of manager social services and safe discharge.
[2021-05-31 14:00] VITALS: BP 101/68; PULSE 90; RESP 16; TEMP 36.7; O2SAT 96
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
[2021-05-31 17:38] LABS: Glucose Point of Care 149 mg/dL (70-110)
[2021-05-31 19:39] LABS: Glucose Point of Care 149 mg/dL (70-110)
[2021-05-31] MEDS: temazepam 15 mg Capsule 30 MG PO (21:59)
[2021-05-31] MEDS: trazodone 50 mg Tablet PO (21:59)
--- NOTE | 2021-05-31 22:03 | PC.NURSE ---
PRN S Trazodone 50mg PO given for insomnia Ristaril 30mg PO given for sleep vistaril 50mg PO given for anxiety
[2021-06-01] MEDS: hyDRALAzine 25 mg Tablet 50 MG PO ×4 (01:26→18:14)
[2021-06-01 06:00] VITALS: BP 106/74; PULSE 87; RESP 17; TEMP 37.2; O2SAT 94
[2021-06-01 07:09] LABS: Glucose Point of Care 105 mg/dL (70-110)
[2021-06-01] MEDS: metformin 500 mg Tablet 1000 MG PO ×2 (07:16→17:01)
[2021-06-01 07:34] LABS: Alanine Aminotransferase 20 U/L (0-33); Albumin Level 3.3 g/dL (3.5-5.2); Alkaline Phosphatase 55 IU/L (35-105); Anion Gap 13.9 (5-19); Aspartate Amino Transferase 22 U/L (0-32); Blood Urea Nitrogen 14 mg/dL (6-20); Calcium 8.7 mg/dL (8.5-10.5); Carbon Dioxide 24 mmol/L (22-29); Chloride 104 mmol/L (98-107); Globulin 2.6 g/dL (1.3-4.6); Glucose 103 mg/dL (65-115); Osmolality Calculated 287 mOsm/kg (285-295); Potassium 3.9 mmol/L (3.5-5.1); Sodium 138 mmol/L (136-145); Total Bilirubin 0.4 mg/dL (0.15-1.2); Total Protein 5.9 g/dL (6.6-8.7)
[2021-06-01 07:48] LABS: Glucose Point of Care 107 mg/dL (70-110)
[2021-06-01] MEDS: ondansetron 4 MG Tablet PO (09:02)
[2021-06-01] MEDS: aspirin 81 mg EC Tablet PO (09:02)
[2021-06-01] MEDS: carvedilol 25 mg Tablet PO ×2 (09:03→17:01)
[2021-06-01] MEDS: sitagliptin 100 mg Tablet PO (09:03)
[2021-06-01] MEDS: lisinopril 20 mg Tablet PO (09:03)
[2021-06-01] MEDS: nicotine 2 mg Gum BUCCAL ×2 (10:37→17:09)
[2021-06-01 11:17] LABS: Glucose Point of Care 145 mg/dL (70-110)
--- NOTE | 2021-06-01 12:21 | PC.RESP ---
SMOKING CESSATION INFORMATION SENT TO PATIENT.
[2021-06-01 14:00] VITALS: BP 122/84; PULSE 100; RESP 20; TEMP 36.3; O2SAT 96
[2021-06-01 16:55] LABS: Glucose Point of Care 157 mg/dL (70-110)
[2021-06-01] MEDS: duloxetine 20 mg Capsule PO (18:47)
--- NOTE | 2021-06-01 18:57 | PM.NPN ---
Subjective NPU Subjective: Interval history: Zoe presents today reporting that she is feeling a little better. She seems more optimistic we talked about excepting her 96-hour hold conclusion and discharging her tomorrow. We also reviewed her medications as we did buy them at the pharmacy and agreed to start Cymbalta 20 mg p.o. twice daily after discussion of the risks, benefits and alternatives and she understood and agreed proceed as documented in his note. Mental Status Exam MSE Comments: This is an obese, white female, in hospital scrubs with limited grooming, and adequate eye contact. No abnormal movements except for psychomotor retardation. Cooperative with exam in no acute distress. Speech was decreased rate and volume. Mood described as better; affect slightly brighter. Thought process, organized. Thought content: patient denied any suicidal or homicidal ideation, there were no delusions reported or noted, patient denied any auditory or visual hallucinations. Attention, concentration, and memory appear intact but were not formally tested. He is alert and oriented times three. Insight and judgment are fair. Impulse control is limited. Vitals/I&O/Wt Last Vital Signs Temp 97.9 F 06/02/21 05:56 Pulse 87 06/02/21 05:56 Resp 18 06/02/21 05:56 BP 118/69 06/02/21 05:56 Pulse Ox 96 06/02/21 05:56 Data NPU : 05/30/21 04:38 06/01/21 06:59 A&P Additional A&P Information (1) Noncompliance: (2) Diabetes mellitus: (3) Suicidal ideation: (4) Partner relational problem: (5) Adjustment disorder with mixed disturbance of emotions and conduct: (6) Methamphetamine dependence: (7) PTSD (post-traumatic stress disorder): This is a 26-year-old, white female, with partner-relational problems, history of addiction with relapse on methamphetamine, and post-traumatic stress disorder, who presents reporting that she feels better about moving forward and regrets the overdose. RECOMMENDATION AND PLAN: 1. Continue current medication. Restart Cymbalta at 20 mg p.o. twice daily. 2. Encourage individual, group, and milieu therapy. 3. Continue q-15 minute checks for safety. 4. Encourage sober living treatment after discharge, at the highest level of care, to which she is willing to commit. 5. Likely discharge tomorrow. Involuntary Hold Information 96 Hour Hold: 96 Hour Involuntary Admission: Yes 96 Hour Hold Ending Date: 06/02/21 96 Hour Hold Ending Time: 16:45 Attestations NPU Medical Necessity Statement*: Inpatient hospitalization is medically necessary and the clinically appropriate intervention, at this time. We will monitor medications and make changes as indicated. Likely length of stay is 1-3 days. Coding Level of Care Code Acute Freight Rate Specialist for Rita Mccartney
[2021-06-01 21:33] VITALS: BP 135/88; PULSE 95; RESP 17; TEMP 37; O2SAT 96
[2021-06-01 21:34] LABS: Glucose Point of Care 167 mg/dL (70-110)
[2021-06-01] MEDS: hyDROXYzine 25 mg Capsule 50 MG PO (21:35)
[2021-06-01] MEDS: trazodone 50 mg Tablet PO (21:36)
[2021-06-02] MEDS: temazepam 15 mg Capsule 30 MG PO (00:38)
--- NOTE | 2021-06-02 00:39 | PC.NURSE ---
restoril 30mg po given for onset of sleep. pt reports difficulty falling to sleep
[2021-06-02 05:56] VITALS: BP 118/69; PULSE 87; RESP 18; TEMP 36.6; O2SAT 96
[2021-06-02 08:16] LABS: Glucose Point of Care 121 mg/dL (70-110)
[2021-06-02] MEDS: duloxetine 20 mg Capsule PO (08:22)
[2021-06-02] MEDS: lisinopril 20 mg Tablet PO (08:22)
[2021-06-02] MEDS: nicotine 2 mg Gum BUCCAL (08:22)
[2021-06-02] MEDS: carvedilol 25 mg Tablet PO (08:22)
[2021-06-02] MEDS: metformin 500 mg Tablet 1000 MG PO (08:23)
[2021-06-02] MEDS: aspirin 81 mg EC Tablet PO (08:23)
[2021-06-02] MEDS: sitagliptin 100 mg Tablet PO (09:13)
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
[2021-06-02 11:17] LABS: Glucose Point of Care 146 mg/dL (70-110)
[2021-06-02 11:21] VITALS: BP 118/69; PULSE 87; RESP 18; TEMP 36.6; O2SAT 96
== END 2021-06-02 12:06 | disposition home or self-care (01) | DRG 304 ==
LOC: ER 17:16 → MEDSURG 18:03 → NP 05-30 21:06
PROVIDERS: Student in an Organized Health Care Education/Training Program; Admitting Provider Hospitalist; Emergency Provider Family Medicine; PCP Nurse Practitioner Family; Visit Provider Psychiatry & Neurology Psychiatry
DX: I16.0 Hypertensive urgency (principal); Q25.6 Stenosis of pulmonary artery; R45.851 Suicidal ideations; F15.20 Other stimulant dependence, uncomplicated; N39.0 Urinary tract infection, site not specified; F43.25 Adjustment disorder with mixed disturbance of emotions and conduct; F32.9 Major depressive disorder, single episode, unspecified; I10 Essential (primary) hypertension; F17.210 Nicotine dependence, cigarettes, uncomplicated; B00.9 Herpesviral infection, unspecified; E11.9 Type 2 diabetes mellitus without complications; F43.10 Post-traumatic stress disorder, unspecified; E66.9 Obesity, unspecified; Z68.39 Body mass index [BMI] 39.0-39.9, adult; Z63.0 Problems in relationship with spouse or partner; Z86.73 Personal history of transient ischemic attack (TIA), and cerebral infarction without residual deficits; Z91.19 Patient's noncompliance with other medical treatment and regimen; Z91.5 Personal history of self-harm
CPT/HCPCS: 36415; 36416; 80053; 80061; 80306; 80307; 81001; 81025; 82962; 83036; 83721; 83735; 84443; 84484; 85025; 87077; 87086; 87186; 93005; 96372; 96374; 96376; 99285; J1650; J1815; J2060; J2405; J3490; Q0162

== ENCOUNTER 2021-12-06 11:53 | Emergency (ER) | payer MEDICAID, SELFPAY ==
[2021-12-06] VITALS (7 sets, daily range): BP systolic 139–184; BP diastolic 95–133; PULSE 73–100; RESP 16–18; TEMP 36.8; O2SAT 97–99; BMI 41.8
--- NOTE | 2021-12-06 12:40 | CT_ITS ---
WS: [id number] CT HEAD TECHNIQUE: Noncontrast CT of the head obtained from the skullbase to the vertex. CLINICAL INFORMATION: hypertensive urgency, headache COMPARISON: CT May 29, 2019 DLP: 824.[address] scans at [facility] use at least one of these dose optimization techniques: automated e xposure control; mA and/or kV adjustment per patient size (includes targeted exams where dose is matc hed to clinical indication); or iterative reconstruction. FINDINGS: No evidence of intracranial hemorrhage or mass effect. Ventricular system and basal cisterns are herrera nt. No extra-axial fluid collections. No evidence of mass or mass effect. Normal valdes-white different iation. Incidental minimal low-lying cerebellar tonsils unchanged. Paranasal sinuses and mastoid air cells are well aerated. .Normal visualized soft tissues. CT/CT head wo con* [id number] IMPRESSION: 1. No evidence of intracranial hemorrhage or mass effect. 2. Normal valdes-white differentiation. 3. No acute intracranial findings and no changes since May 29, 2019.
--- NOTE | 2021-12-06 12:44 | ED_ITS ---
Documented by User: TYLOR Regan 12/07/21 08:51 HPI - Headache General: Chief Complaint: Headache Stated Complaint: high B/P Time Seen by Provider: 12/06/21 12:25 History of Present Illness: Patient is a G1, P0 26-year-old female that is currently 12 weeks and comes to the ED with a headache and high blood pressure. Past medical history of stroke, hypertension, diabetes. Saw her OB doctor a couple weeks ago and they switched her blood pressure medication from lisinopril to labetalol. Patient says her blood pressure has been running high since prescription changed. Today patient woke up with 6 out of 10 headache that is located in the forehead area. She has not taken anything for her headache today. Patient denies any fever, chills, abdominal pain, vaginal bleeding or vaginal discharge. Patient has an appointment with her OB doctor tomorrow morning. Associated symptoms: Reports nausea and vomiting; Deny chest pain, fever(s) or rash Review of Systems Const: Denies: fever(s), chills or fatigue Eyes: Denies: change in vision or eye discomfort ENMT: Denies: throat pain, odynophagia, nasal discharge or nasal congestion Card: Denies: chest pain, palpitations, edema, swelling of feet/ankles, dyspnea on exertion or orthopnea Resp: Denies: dyspnea, productive cough or non-productive cough GI: Reports: nausea and vomiting; Denies: abdominal pain, diarrhea, constipation or hematochezia : Denies: flank pain, dysuria or hematuria Musc: Denies: neck pain, back pain or extremity swelling Skin/Breast: Denies: rash or new lesions Neuro: Reports: headache(s); Denies: numbness in extremities or weakness in extremities [facility] ED PFSH: Medical History (Updated 12/07/21 @ 12:32 by Mandy Salazar APN, CARLOS) Diabetes mellitus managed with metformin bid and diet by PCP. Last A1c: 09/2021 6.1% History of CVA (cerebrovascular accident) (~2019) Was unresponsive for 9 days. Minimal deficits. Right sided weakness. Some verbal decline. Hypertension Methamphetamine abuse May 09, 2021-- sobriety date No pertinent past medical history neghx: thyroid,dvt/pe PCP:Margarita Ward COOK JELLY---[facility] in [place] Noncompliance Surgical History No pertinent past surgical history Family History Mother Hypertension Father Hypertension Grandmother Diabetes maternal Denies family history of Colon cancer Ovarian cancer Heart disease Hypercholesteremia Breast cancer Uterine cancer Thyroid disease Stroke Female Reproductive History: Date of last menstrual period: 09/18/21 Physical Exam Const: COMMON NORMALS: no acute distress, patient oriented x3, healthy appearing and alert GENERAL APPEARANCE: cooperative and comfortable HENMT: COMMON NORMALS: normocephalic HEAD & SCALP: normocephalic MOUTH: Normal oral and palatal mucosa present THROAT: posterior oropharynx normal and uvula midline Neck/C-Spine: COMMON NORMALS: supple GENERAL: Yes normal visual inspection Resp: COMMON NORMALS: normal respiratory effort, No retractions, No use of accessory muscles and clear to auscultation bilaterally AUSCULTATION: clear to auscultation bilaterally Cardio: COMMON NORMALS: regular rate, regular rhythm, S1 normal heart sound present, S2 normal heart sound present, No gallops present (Cardio), No clicks present (Cardio), No murmurs present (Cardio) and Peripheral pulses 2+ throughout RATE: regular rate RHYTHM: regular rhythm HEART SOUNDS: S1 normal heart sound present and S2 normal heart sound present PERIPHERAL PULSES: Peripheral pulses 2+ throughout GI: COMMON NORMALS: Normal to inspection, nondistended, normoactive bowel sounds present, Soft to palpation, non-tender and no masses PALPATION: Yes Soft to palpation : COMMON NORMALS: Yes no CVA tenderness BLADDER/KIDNEY EXAM: Yes no CVA tenderness Back/Pelvis: COMMON NORMALS: no CVA tenderness Extremity: COMMON NORMALS: normal to inspection Neuro: COMMON NORMALS: patient oriented x3, CN's II-XII intact bilaterally, moves all extremities, no focal motor deficits and no sensory deficits noted SENSORIUM/ORIENTATION: Yes alert SENSORY EXAM: Yes extremities (intact) MOTOR EXAM: 5/5 motor strength present throughout Skin: GENERAL SKIN EXAM: dry skin Course ED course: Doppler was used to obtain heart tones-I was able to capture heart tones that were ranging from a rate of 150- 165. Vital Signs: Vital signs: Vital Signs Temperature 98.3 F 12/06/21 12:09 Pulse Rate 86 12/06/21 16:25 Respiratory Rate 16 12/06/21 16:25 Blood Pressure 139/99 12/06/21 16:25 Pulse Oximetry 98 12/06/21 16:25 MDM - Headache Medical Decision Making Patient is a G1, P0 26-year-old female comes to the ED with elevated blood pressure and headache. Patient is currently 12 weeks and was recently switched from lisinopril to labetalol to manage her blood pressure while . Patient has no related complaints or concerns and denies any vaginal bleeding, vaginal discharge, abdominal pain. Patient's blood pressure is 169/129 and the rest of the vitals are stable. Exam is benign and patient has no neuro deficits. Labs are unremarkable. UA showed no signs of infection. hCG quant was 43,231. CT of head showed no acute findings. Doppler was used to check for heart tones and heart tones were captured in the range of 150-165. Patient was given Tylenol and Zofran to manage her he adache and nausea. She was then given IV labetalol 20 mg and then 40 mg and her blood pressure decreased to 139/99. Patient was stable for discharge home. Patient has an appointment with her OB doctor tomorrow. She will talk to her OB doctor about further blood pressure medication management. Return to ED precautions given. Patient understood and agreed with plan. Lab Data I reviewed the patient's lab results. : 12/06/21 13:30 12/06/21 13:[address] 12/06/21 12:40 IMPRESSION: 1. No evidence of intracranial hemorrhage or mass effect. 2. Normal valdes-white differentiation. 3. No acute intracranial findings and no changes since May 29, 2019. Laboratory Results WBC 12.3 10^3/uL (4.0-10.0) H 12/06/21 13:30 RBC 4.28 10^6/uL (4.1-5.3) 12/06/21 13:30 Hgb 13.7 g/dL (11.5-15.3) 12/06/21 13:30 Hct 40.1 % (37.0-47.0) 12/06/21 13:30 MCV 93.7 fl (81-99) 12/06/21 13:30 MCH 32.0 pg (28.0-34.0) 12/06/21 13:30 MCHC 34.2 g/dL (30.0-36.0) 12/06/21 13:30 RDW 13.0 % (12.1-15.1) 12/06/21 13:30 Plt Count 283 10^3/cmm (130-400) 12/06/21 13:30 MPV 9.9 fL (7.4-10.4) 12/06/21 13:30 Neut % (Auto) 64.4 % 12/06/21 13:30 Lymph % (Auto) 27.3 % 12/06/21 13:30 [place] % (Auto) 5.3 % 12/06/21 13:30 Eos % (Auto) 2.0 % 12/06/21 13:30 Baso % (Auto) 0.5 % 12/06/21 13:30 Neut # (Auto) 7.93 10^3/uL (1.8-7.7) H 12/06/21 13:30 Lymph # (Auto) 3.4 10^3/uL (0.8-4.8) 12/06/21 13:30 [place] # (Auto) 0.7 10^3/uL (0.2-0.9) 12/06/21 13:30 Eos # (Auto) 0.2 10^3/uL (0.0-0.8) 12/06/21 13:30 Baso # (Auto) 0.1 10^3/uL (0.0-0.1) 12/06/21 13:30 Nucleated RBC % (auto) 0 % 12/06/21 13:30 Nucleated RBCs # 0.0 /100WBC 12/06/21 13:30 Sodium 136 mmol/L (136-145) 12/06/21 13:30 Potassium 3.6 mmol/L (3.5-5.1) 12/06/21 13:30 Chloride 101 mmol/L (98-107) 12/06/21 13:30 Carbon Dioxide 22 mmol/L (22-29) 12/06/21 13:30 Anion Gap 16.6 (5-19) 12/06/21 13:30 BUN 9 mg/dL (6-20) 12/06/21 13:30 Creatinine 0.7 mg/dL (0.5-0.9) 12/06/21 13:30 GFR Calculation 99.6 mL/min (90-130) 12/06/21 13:30 Glucose 103 mg/dL (65-115) 12/06/21 13:30 Calculated Osmolality 281 mOsm/kg (285-295) L 12/06/21 13:30 Calcium 9.8 mg/dL (8.5-10.5) 12/06/21 13:30 Total Bilirubin 0.5 mg/dL (0.15-1.2) 12/06/21 13:30 AST 10 U/L (0-32) 12/06/21 13:30 ALT 7 U/L (0-33) 12/06/21 13:30 Alkaline Phosphatase 61 IU/L (35-105) 12/06/21 13:30 Total Protein 7.7 g/dL (6.6-8.7) 12/06/21 13:30 Albumin 4.0 g/dL (3.5-5.2) 12/06/21 13:30 Globulin 3.7 g/dL (1.3-4.6) 12/06/21 13:30 Ser , Semi-Qnt 01826.00 mIU/mL 12/06/21 13:30 Urine Color Yellow (Yellow) 12/06/21 13:30 Urine Appearance Hazy (CLEAR) A 12/06/21 13:30 Urine pH 5 (5-7) 12/06/21 13:30 Ur Specific [place] 1.025 (1.005-1.030) 12/06/21 13:30 Urine Protein 3+ (Negative) H 12/06/21 13:30 Urine Glucose (UA) Norm (Normal) 12/06/21 13:30 Urine Ketones Negative (Negative) 12/06/21 13:30 Urine Blood Neg (Negative) 12/06/21 13:30 Urine Nitrate Negative (Negative) 12/06/21 13:30 Urine Bilirubin Neg (Negative) 12/06/21 13:30 Urine Urobilinogen Neg mg/dL (Negative) 12/06/21 13:30 Ur Leukocyte Esterase Negative (Negative) 12/06/21 13:30 Urine RBC None /hpf (0-2) 12/06/21 13:30 Urine WBC None /hpf (0-5) 12/06/21 13:30 Ur Squamous Epith Cells Rare /hpf (0-5) 12/06/21 13:30 Amorphous Sediment Not Reportable 12/06/21 13:30 Urine Bacteria None /hpf (NONE) 12/06/21 13:30 Discharge Plan Discharge Patient Disposition: Home Clinical Impression: Hypertensive urgency Headache Qualifiers: Headache type: unspecified Headache chronicity pattern: acute headache Int ractability: not intractable Qualified Code(s): R51.9 - Headache, unspecified Condition: Stable Prescriptions: No Action prenat.vits,kal,zqn-ziir-piext Tablet 1 tab PO DAILY 0RF labetalol 200 mg tablet 400 mg PO BID 30 Days Qty: 120 0RF Rx Instructions: take 400mg BID metformin 500 mg tablet 500 mg PO BID 0RF Tylenol Arthritis Pain 650 mg Tablet Extended Release 1,300 mg PO Q12H PRN (Reason: Pain) 0RF Benadryl 25 mg Capsule 50 mg PO Q4H PRN (Reason: UNKNOWN) 0RF duloxetine 20 mg Capsule,Delayed Release(Dr/Ec) 20 mg PO BID 30 Days Qty: 60 1RF Discharge Orders: Discharge ED (Routine); Ordered 12/06/21 Ordered By: Kavin Hector Referrals: Margarita Ward FNP [Primary Care Provider] - Discharge Diet: Regular Discharge Activity: Increase activity as tolerated Patient Instructions: Hypertensive Crisis (ED), Hypertension (ED), Hypertension During (ED) Activity Restrictions/Additional Instructions: Follow-up with your OB doctor tomorrow and make sure to discuss blood pressure management with them. Continue taking all home medications as previously prescribed. Take [id number] Tylenol for any other headaches. Return to the ER or your medical provider if condition worsens. Please read and understand discharge instructions. Thank you for choosing [facility] for your healthcare needs today. Please realize this is an emergency room and that we are providing you with a medical screening exam and this may not be complete and all inclusive of all the testing and or work up that you may need to determine your ailment or severity of your illness. It is very important that you follow up as instructed or that you return to the Emergency Department should you have concerns or if your condition changes or worsens in any way. Coding Level of Care Code ED Chemical Process Operator for Chg Fwd Exam Comprehensive Documented by User: Gm Guan DO 12/08/21 09:22 HPI - Headache General: Chief Complaint: Headache Stated Complaint: high B/P Time Seen by Provider: 12/06/21 12:25 PFS ED PFSH: Medical History (Updated 12/07/21 @ 12:32 by Mandy Salazar APN, CARLOS) Diabetes mellitus managed with metformin bid and diet by PCP. Last A1c: 09/2021 6.1% History of CVA (cerebrovascular accident) (~2018) Was unresponsive for 9 days. Minimal deficits. Right sided weakness. Some verbal decline. Hypertension Methamphetamine abuse May 09, 2021-- sobriety date No pertinent past medical history neghx: thyroid,dvt/pe PCP:Margarita Ward COOK JELLY---[facility] in [place] Noncompliance Surgical History No pertinent past surgical history Family History Mother Hypertension Father Hypertension Grandmother Diabetes maternal Denies family history of Colon cancer Ovarian cancer Heart disease Hypercholesteremia Breast cancer Uterine cancer Thyroid disease Stroke Course Vital Signs: Vital signs: Vital Signs Temperature 98.3 F 12/06/21 12:09 Pulse Rate 86 12/06/21 16:25 Respiratory Rate 16 12/06/21 16:25 Blood Pressure 139/99 12/06/21 16:25 Pulse Oximetry 98 12/06/21 16:25 MDM - Headache Medical Decision Making Patient is a G1, P0 26-year-old female comes to the ED with elevated blood pressure and headache. Patient is currently 12 weeks and was recently switched from lisinopril to labetalol to manage her blood pressure while . Patient has no related complaints or concerns and denies any vaginal bleeding, vaginal discharge, abdominal pain. Patient's blood pressure is 169/129 and the rest of the vitals are stable. Exam is benign and patient has no neuro deficits. Labs are unremarkable. UA showed no signs of infection. hCG quant was 43,231. CT of head showed no acute findings. Doppler was used to check for heart tones and heart tones were captured in the range of 150-165. Patient was given Tylenol and Zofran to manage her headache and nausea. She was then given IV labetalol 20 mg and then 40 mg and her blood pressure decreased to 139/99. Patient was stable for discharge home. Patient has an appointment with her OB doctor tomorrow. She will talk to her OB doctor about further blood pressure medication management. Return to ED precautions given. Patient understood and agreed with plan. Chart reviewed and patient discussed with midlevel. Agree with assessment and plan. Lab Data : 12/06/21 13:30 12/06/21 13:[address] 12/06/21 12:40 IMPRESSION: 1. No evidence of intracranial hemorrhage or mass effect. 2. Normal valdes-white differentiation. 3. No acute intracranial findings and no changes since May 29, 2019. Laboratory Results WBC 12.3 10^3/uL (4.0-10.0) H 12/06/21 13:30 RBC 4.28 10^6/uL (4.1-5.3) 12/06/21 13:30 Hgb 13.7 g/dL (11.5-15.3) 12/06/21 13:30 Hct 40.1 % (37.0-47.0) 12/06/21 13:30 MCV 93.7 fl (81-99) 12/06/21 13:30 MCH 32.0 pg (28.0-34.0) 12/06/21 13:30 MCHC 34.2 g/dL (30.0-36.0) 12/06/21 13:30 RDW 13.0 % (12.1-15.1) 12/06/21 13:30 Plt Count 283 10^3/cmm (130-400) 12/06/21 13:30 MPV 9.9 fL (7.4-10.4) 12/06/21 13:30 Neut % (Auto) 64.4 % 12/06/21 13:30 Lymph % (Auto) 27.3 % 12/06/21 13:30 [place] % (Auto) 5.3 % 12/06/21 13:30 Eos % (Auto) 2.0 % 12/06/21 13:30 Baso % (Auto) 0.5 % 12/06/21 13:30 Neut # (Auto) 7.93 10^3/uL (1.8-7.7) H 12/06/21 13:30 Lymph # (Auto) 3.4 10^3/uL (0.8-4.8) 12/06/21 13:30 [place] # (Auto) 0.7 10^3/uL (0.2-0.9) 12/06/21 13:30 Eos # (Auto) 0.2 10^3/uL (0.0-0.8) 12/06/21 13:30 Baso # (Auto) 0.1 10^3/uL (0.0-0.1) 12/06/21 13:30 Nucleated RBC % (auto) 0 % 12/06/21 13:30 Nucleated RBCs # 0.0 /100WBC 12/06/21 13:30 Sodium 136 mmol/L (136-145) 12/06/21 13:30 Potassium 3.6 mmol/L (3.5-5.1) 12/06/21 13:30 Chloride 101 mmol/L (98-107) 12/06/21 13:30 Carbon Dioxide 22 mmol/L (22-29) 12/06/21 13:30 Anion Gap 16.6 (5-19) 12/06/21 13:30 BUN 9 mg/dL (6-20) 12/06/21 13:30 Creatinine 0.7 mg/dL (0.5-0.9) 12/06/21 13:30 GFR Calculation 99.6 mL/min (90-130) 12/06/21 13:30 Glucose 103 mg/dL (65-115) 12/06/21 13:30 Calculated Osmolality 281 mOsm/kg (285-295) L 12/06/21 13:30 Calcium 9.8 mg/dL (8.5-10.5) 12/06/21 13:30 Total Bilirubin 0.5 mg/dL (0.15-1.2) 12/06/21 13:30 AST 10 U/L (0-32) 12/06/21 13:30 ALT 7 U/L (0-33) 12/06/21 13:30 Alkaline Phosphatase 61 IU/L (35-105) 12/06/21 13:30 Total Protein 7.7 g/dL (6.6-8.7) 12/06/21 13:30 Albumin 4.0 g/dL (3.5-5.2) 12/06/21 13:30 Globulin 3.7 g/dL (1.3-4.6) 12/06/21 13:30 Ser , Semi-Qnt 31009.00 mIU/mL 12/06/21 13:30 Urine Color Yellow (Yellow) 12/06/21 13:30 Urine Appearance Hazy (CLEAR) A 12/06/21 13:30 Urine pH 5 (5-7) 12/06/21 13:30 Ur Specific [place] 1.025 (1.005-1.030) 12/06/21 13:30 Urine Protein 3+ (Negative) H 12/06/21 13:30 Urine Glucose (UA) Norm (Normal) 12/06/21 13:30 Urine Ketones Negative (Negative) 12/06/21 13:30 Urine Blood Neg (Negative) 12/06/21 13:30 Urine Nitrate Negative (Negative) 12/06/21 13:30 Urine Bilirubin Neg (Negative) 12/06/21 13:30 Urine Urobilinogen Neg mg/dL (Negative) 12/06/21 13:30 Ur Leukocyte Esterase Negative (Negative) 12/06/21 13:30 Urine RBC None /hpf (0-2) 12/06/21 13:30 Urine WBC None /hpf (0-5) 12/06/21 13:30 Ur Squamous Epith Cells Rare /hpf (0-5) 12/06/21 13:30 Amorphous Sediment Not Reportable 12/06/21 13:30 Urine Bacteria None /hpf (NONE) 12/06/21 13:30 Discharge Plan Discharge Patient Disposition: Home Clinical Impression: Hypertensive urgency Headache Qualifiers: Headache type: unspecified Headache chronicity pattern: acute headache Intractability: not intractable Qualified Code(s): R51.9 - Headache, unspecified Condition: Stable Prescriptions: No Action prenat.vits,kal,fqg-bpyx-knmsi Tablet 1 tab PO DAILY 0RF labetalol 200 mg tablet 400 mg PO BID 30 Days Qty: 120 0RF Rx Instructions: take 400mg BID metformin 500 mg tablet 500 mg PO BID 0RF Tylenol Arthritis Pain 650 mg Tablet Extended Release 1,300 mg PO Q12H PRN (Reason: Pain) 0RF Benadryl 25 mg Capsule 50 mg PO Q4H PRN (Reason: UNKNOWN) 0RF duloxetine 20 mg Capsule,Delayed Release(Dr/Ec) 20 mg PO BID 30 Days Qty: 60 1RF Discharge Orders: Discharge ED (Routine); Ordered 12/06/21 Ordered By: Kavin Hector Referrals: Margarita Ward FNP [Primary Care Provider] - Discharge Diet: Regular Discharge Activity: Increase activity as tolerated Patient Instructions: Hypertensive Crisis (ED), Hypertension (ED), Hypertension During (ED) Activity Restrictions/Additional Instructions: Follow-up with your OB doctor tomorrow and make sure to discuss blood pressure management with them. Continue taking all home medications as previously prescribed. Take [id number] Tylenol for any other headaches. Return to [facility] ER or your medical provider if condition worsens. Please read and understand discharge instructions. Thank you for choosing [facility] for your healthcare needs today. Please realize this is an emergency room and that we are providing you with a medical screening exam and this may not be complete and all inclusive of all the testing and or work up that you may need to determine your ailment or severity of your illness. It is very important that you follow up as instructed or that you return to the Emergency Department should you have concerns or if your condition changes or worsens in any way. Coding Level of Care Code ED Chemical Process Operator for Rita Mccartney Exam Comprehensive
[2021-12-06 13:43] LABS: Basophils # 0.1 10^3/uL (0.0-0.1); Basophils % 0.5 %; Eosinophils # 0.2 10^3/uL (0.0-0.8); Hematocrit 40.1 % (37.0-47.0); Hemoglobin 13.7 g/dL (11.5-15.3); Lymphocytes # 3.4 10^3/uL (0.8-4.8); Lymphocytes % 27.3 %; Mean Corpuscular HGB Conc 34.2 g/dL (30.0-36.0); Mean Corpuscular Volume 93.7 fl (81-99); Mean Platelet Volume 9.9 fL (7.4-10.4); Monocytes # 0.7 10^3/uL (0.2-0.9); Monocytes % 5.3 %; Neutrophils # 7.93 10^3/uL (1.8-7.7); Neutrophils % 64.4 %; Nucleated Red Blood Cells % 0 %; Platelet Count 283 10^3/cmm (130-400); Red Blood Count 4.28 10^6/uL (4.1-5.3); White Blood Count 12.3 10^3/uL (4.0-10.0)
[2021-12-06] MEDS: acetaminophen 500 mg Tablet 1000 MG PO (13:49)
[2021-12-06] MEDS: ondansetron 4 MG Tablet PO (13:49)
[2021-12-06] MEDS: labetalol 5 mg/mL SDV 20mL 20 MG IVP (14:10)
[2021-12-06 14:21] LABS: Add Urine Culture? No; Add Urine Microscopic? YES; Bilirubin Urine Neg (Negative); Blood Urine Neg (Negative); Glucose Urine UA Norm (Normal); Ketones Urine Negative (Negative); Leukocyte Esterase Urine Negative (Negative); Nitrate Urine Negative (Negative); Protein Urine 3+ (Negative); Specific Gravity, Urine 1.025 (1.005-1.030); Squamous Epithelial Cell Urine RARE /hpf (0-5); Urine Appearance Hazy (CLEAR); Urine Color Yellow (Yellow); Urobilinogen Urine Neg (Negative); pH Urine 5 (5-7)
[2021-12-06 14:23] LABS: Alanine Aminotransferase 7 U/L (0-33); Alkaline Phosphatase 61 IU/L (35-105); Anion Gap 16.6 (5-19); Aspartate Amino Transferase 10 U/L (0-32); Blood Urea Nitrogen 9 mg/dL (6-20); Calcium 9.8 mg/dL (8.5-10.5); Carbon Dioxide 22 mmol/L (22-29); Chloride 101 mmol/L (98-107); Globulin 3.7 g/dL (1.3-4.6); Glomerular Filtration Rate 99.6 mL/min (90-130); Glucose 103 mg/dL (65-115); Osmolality Calculated 281 mOsm/kg (285-295); Potassium 3.6 mmol/L (3.5-5.1); Sodium 136 mmol/L (136-145); Total Bilirubin 0.5 mg/dL (0.15-1.2); Total Protein 7.7 g/dL (6.6-8.7)
[2021-12-06] MEDS: labetalol 5 mg/mL SDV 20mL 40 MG IVP (15:24)
--- NOTE | 2021-12-06 15:29 | PC.NURSE ---
Pt provided food and drink
== END 2021-12-06 16:26 | disposition home or self-care (01) ==
PROVIDERS: Emergency Provider Physician Assistant; PCP Nurse Practitioner Family
DX: O16.1 Unspecified maternal hypertension, first trimester (principal); I16.0 Hypertensive urgency; Z79.84 Long term (current) use of oral hypoglycemic drugs; Z86.73 Personal history of transient ischemic attack (TIA), and cerebral infarction without residual deficits; O24.911 Unspecified diabetes mellitus in pregnancy, first trimester; Z3A.12 12 weeks gestation of pregnancy
CPT/HCPCS: 70450; 80053; 81001; 84702; 85025; 96374; 96376; 99284; J3490; Q0162

== ENCOUNTER → 2021-12-07 10:00 | Outpatient (BNVA) | payer MEDICAID, SELFPAY | PROVIDERS: PCP Nurse Practitioner Family; Visit Provider Nurse Practitioner Women's Health | DX: N92.6 Irregular menstruation, unspecified (principal); R09.89 Other specified symptoms and signs involving the circulatory and respiratory systems | CPT/HCPCS: 81025; 87635 ==

== ENCOUNTER 2021-12-16 13:52 | Outpatient (CLI) | payer MEDICAID, SELFPAY ==
--- NOTE | 2021-12-16 13:58 | US_ITS ---
WS: [id number] EARLY OBSTETRICAL ULTRASOUND (<14 WEEKS). HISTORY: E11.9 - Type 2 diabetes mellitus without complications COMPARISON: None available. Single intrauterine gestational sac is identified. Cardiac activity at 171 BPM. Caputa-rump length yosvany sures 8.1 cm which corresponds to a gestation of 14w0d. Normal-appearing yolk sac and amnion demonstr ated. No subchorionic hemorrhage. No free fluid. Neither ovary well identified. No adnexal masses. US/US OB <= 14 weeks fetus [id number] IMPRESSION: 1. Single intrauterine gestation of 14 weeks 0 day with an EDC of 06/16/2022. 2. Normal cardiac rate.
== END 2021-12-16 13:53 | disposition home or self-care (01) ==
PROVIDERS: PCP Nurse Practitioner Family; Visit Provider Nurse Practitioner Women's Health
DX: E11.9 Type 2 diabetes mellitus without complications (principal); I10 Essential (primary) hypertension; Z78.9 Other specified health status; Z91.19 Patient's noncompliance with other medical treatment and regimen; Z3A.14 14 weeks gestation of pregnancy
CPT/HCPCS: 76801

== ENCOUNTER → 2021-12-23 14:57 | Outpatient (BNVA) | payer MEDICAID, SELFPAY | PROVIDERS: PCP Nurse Practitioner Family; Visit Provider Obstetrics & Gynecology | DX: O09.92 Supervision of high risk pregnancy, unspecified, second trimester (principal); Z3A.00 Weeks of gestation of pregnancy not specified | CPT/HCPCS: 80307; 83036; 84315; 85027; 86592; 86762; 86803; 86850; 86900; 87086; 87340; 87491; 87591; 87806; 88175 ==

== ENCOUNTER 2022-02-23 15:50 | Inpatient (IN) | payer MEDICAID, SELFPAY ==
[2022-02-23] VITALS (40 sets, daily range): BP systolic 122–234; BP diastolic 68–142; PULSE 72–116; RESP 14–20; TEMP 36.5–37.3; O2SAT 94–100; BMI 42.0
--- NOTE | 2022-02-23 14:42 | US_ITS ---
WS: [id number] Limited obstetrical ultrasound. HISTORY: Possible placental abruption. COMPARISON: 12/16/2021. Stat ultrasound is performed of the fetus to evaluate for possible abruption. heart rate is at 141 bpm. Placenta is anterior. There is mild variable echogenicity within the placenta. On the posterior surfa ce of the placenta there is a very thin area of increased echogenicity that is different than the naveed or study. This area of increased echogenicity could represent a small retroplacental hemorrhage. Ther e is also some variable echogenicity, predominantly low signal within the placenta which may be edema . heart rate was 140 bpm during the examination. There is very little movement of the fetus durin g this examination. The heart is very small caliber. US/US OB limited [id number] IMPRESSION: 1. Increased echogenicity in the retroplacental location with a maximum diamete r of 9 mm. This is a new finding as compared to 12/16/2021 and a small retroplac ental hemorrhage is not excluded. Follow-up ultrasound recommended. 2. Low normal heart rate. Notified Jones Mason MD at 02/23/2022 4:15 PM.
[2022-02-23] MEDS: labetalol 5 mg/mL SDV 20mL 20 MG IVP ×2 (14:54→23:21)
[2022-02-23 15:05] LABS: Basophils # 0.1 10^3/uL (0.0-0.1); Basophils % 0.4 %; Eosinophils # 0.2 10^3/uL (0.0-0.8); Eosinophils % 1.2 %; Hematocrit 38.5 % (37.0-47.0); Hemoglobin 13.9 g/dL (11.5-15.3); Lymphocytes # 3.1 10^3/uL (0.8-4.8); Lymphocytes % 17.9 %; Mean Corpuscular HGB Conc 36.1 g/dL (30.0-36.0); Mean Corpuscular Hemoglobin 32.9 pg (28.0-34.0); Mean Platelet Volume 10.4 fL (7.4-10.4); Monocytes # 0.8 10^3/uL (0.2-0.9); Monocytes % 4.8 %; Neutrophils # 12.75 10^3/uL (1.8-7.7); Neutrophils % 74.7 %; Nucleated Red Blood Cells % 0 %; Platelet Count 146 10^3/cmm (130-400); Red Blood Count 4.23 10^6/uL (4.1-5.3); White Blood Count 17.1 10^3/uL (4.0-10.0)
[2022-02-23] MEDS: labetalol 5 mg/mL SDV 20mL 40 MG IVP (15:08)
[2022-02-23] MEDS: labetalol 5 mg/mL SDV 20mL 80 MG IVP (15:18)
[2022-02-23 15:26] LABS: Protein Urine 3+ (Negative); Specific Gravity, Urine 1.015 (1.005-1.030); Urine Appearance Clear (CLEAR); Urine Color Yellow (Yellow); pH Urine 5 (5-7)
[2022-02-23 15:27] LABS: Add Urine Microscopic? YES; Bilirubin Urine Neg (Negative); Blood Urine Neg (Negative); Glucose Urine UA Norm (Normal); Ketones Urine Negative (Negative); Leukocyte Esterase Urine Negative (Negative); Nitrate Urine Negative (Negative); Urobilinogen Urine Norm (Negative)
[2022-02-23 15:31] LABS: Add Urine Culture? No; Squamous Epithelial Cell Urine 0-4 /hpf (0-5)
[2022-02-23] MEDS: magnesium sulfate premix 2 GM/50 ML PIGGYBACK IV (15:45)
[2022-02-23] MEDS: dextrose 5%-lactated ringers 1,000 ML 125 ML IV (15:46)
[2022-02-23 15:47] LABS: Urine Creatinine 188 mg/dL (28-217)
--- NOTE | 2022-02-23 15:47 | P.PN_ITS ---
Subjective Subjective: Mrs. Hawley 26-year-old female G1, P0 with an estimated gestational age at 24+1 weeks. Came to labor and delivery referring abdominal pain. Vitals/I&O/Wt Last Vital Signs Temp 97.7 F 02/23/22 14:22 Pulse 83 02/23/22 15:44 BP 145/95 02/23/22 15:44 Weight last 48 hrs Weight 94.347 kg Physical Exam Narrative: GA: Alert and oriented ?3. Lungs: Clear to auscultation bilaterally. Heart: Regular rhythm and rate. Abdomen: Gravid, full the height equals dates, nontender. TWILL CUTTER: SVE; dilation: close cm, effacement: 0%, station: -5, presentation: breech, membranes: intact. Extremities: no edema, no cyanosis, no calves pain. heart tracing: Basal rate: 130's bpm, Variability: for age, Accelerations: present, Decelerations: occasional variable, Contraction: none. Data : 02/23/22 14:50 02/23/22 15:25 A&P Assessment and plan (1) Pre-eclampsia superimposed on chronic hypertension: Mrs. Hawley 26-year-old female G1, P0 with an estimated gestational age of 24 weeks and 1 day with a history of diabetes type 2 and chronic hypertension. Came to labor and delivery complaining of abdominal pain. Upon evaluation she was noted to have severe high blood pressure of 220/115. With heart monitor was placed on the patient heart rate show occasional variable decelerations. Stat ultrasound was ordered to rule out possible abruption. Severe preeclampsia protocol was started. Magnesium sulfate for neuro protection and seizure prophylaxis, also corticosteroids was started for lung maturation. [facility] in [place] was called and Dr. Noguera accepted the patient. Status: Acute Attestations Medical Necessity Statement*: In my professional opinion per admitting diagnosis Coding Level of Care Code Acute Battery Installer for [facility] Fw Diagnoses Pre-eclampsia superimposed on chronic hypertension O11.9
[2022-02-23] MEDS: betamethasone susp 6 mg/mL 5 mL 12 MG IM (15:56)
[2022-02-23 16:02] LABS: UPRO/UCREAT Ratio 1.38 mg/mg CR; Urine Protein Random 259 mg/dL
[2022-02-23] MEDS: ondansetron 2 mg/ML SDV 2 mL 4 MG IVP (16:09)
[2022-02-23 16:17] LABS: Alanine Aminotransferase 38 U/L (0-33); Albumin Level 3.1 g/dL (3.5-5.2); Alkaline Phosphatase 75 IU/L (35-105); Blood Urea Nitrogen 7 mg/dL (6-20); Calcium 8.2 mg/dL (8.5-10.5); Carbon Dioxide 17 mmol/L (22-29); Chloride 98 mmol/L (98-107); Globulin 3.1 g/dL (1.3-4.6); Glomerular Filtration Rate 146.9 mL/min (90-130); Glucose 106 mg/dL (65-115); Osmolality Calculated 266 mOsm/kg (285-295); Sodium 129 mmol/L (136-145); Total Bilirubin 0.8 mg/dL (0.15-1.2); Total Protein 6.2 g/dL (6.6-8.7); Uric Acid 5.8 mg/dL (2.4-5.7)
[2022-02-23 16:21] LABS: Anion Gap 17.4 (5-19); Aspartate Amino Transferase 48 U/L (0-32); Potassium 3.4 mmol/L (3.5-5.1)
--- NOTE | 2022-02-23 17:04 | XR_ITS ---
WS: [id number] KUB, AP view, 02/23/2022 Clinical Data: no count prior to emergent surgery Comparison: KUB, 10/24/2010. Findings: No abnormal intraabdominal masses or calcifications are seen. There is no dilatated small bowel or ev idence of obstruction. There is a large amount of fecal material throughout the colon. The film is underpenetrated and small objects are difficult to see. XR/XR KUB portable [id number] Impression: Negative KUB.
--- NOTE | 2022-02-23 17:17 | ANES.PREANE2 ---
Pre-Anesthetic Assessment Height/Weight: Height 1.5 m Weight 94.347 kg Temp Pulse BP Pulse Ox 97.7 F 77 122/73 94 02/23/22 14:22 02/23/22 16:13 02/23/22 16:10 02/23/22 16:13 C/S Familial anesthetic complications: None Was Beta Loni taken within 24 hours: Yes Was Clonidine taken within 24 hours: N/A Social No alcohol and No tobacco Meth use? Exam alert, oriented x 3, clear to auscultation bilaterally and regular rate & rhythm Airway Submandibular: within normal limits Cervical ROM: within normal limits Mallampati: Class II Dentition: full CV/HEM Hypertension PIH/Pre-E Metabolic Diabetes Mellitus and Morbid Obesity Anesthetic Plan ASA status: 3E Anesthesia: General (RSI) Medications/Allergies Home Medications Medication Instructions Recorded Confirmed Last Taken Type acetaminophen 650 mg 1,300 mg PO Q12H PRN 05/27/21 02/21/22 Unknown History tablet,extended release (Tylenol Arthritis Pain) diphenhydramine HCl 25 mg capsule 50 mg PO Q4H PRN 05/27/21 02/21/22 02/23/22 06:00 History (Benadryl) duloxetine 20 mg capsule,delayed 20 mg PO BID 30 Days #60 cap 06/02/21 02/21/22 02/23/22 06:00 Rx release metformin 500 mg tablet 500 mg PO BID 12/07/21 02/21/22 02/23/22 06:00 History prenat.vits,kal,ipr-npun-[id number] 1 tab PO DAILY 12/07/21 02/21/22 02/23/22 06:00 History labetalol 200 mg tablet See Rx Instructions .ROUTE 01/17/22 02/21/22 02/21/22 07:00 Rx .COMPLEX #120 tab aspirin 81 mg capsule 81 mg PO DAILY 02/23/22 02/23/22 02/23/22 06:00 History Allergies Allergy/AdvReac Type Severity Reaction Status Date / Time No Known Allergies Allergy Verified 02/21/22 07:59 Current Medications Generic Name Dose Route Start Last Admin Trade Name Freq PRN Reason Stop Dose Admin Dextrose/Lactated Ringer's 1,000 mls @ 125 mls/hr 02/23/22 15:30 02/23/22 15:46 Dextrose 5%-Lactated Ringers IV 125 mls/hr .Q8H MIGNON Administration Labetalol HCl 40 mg 02/23/22 14:41 02/23/22 15:08 Labetalol 5 Mg/Ml Sdv 20ml IVP 40 mg PRN PRN Administration HYPERTENSION Protocol Labetalol HCl 20 mg 02/23/22 14:41 02/23/22 14:54 Labetalol 5 Mg/Ml Sdv 20ml IVP 20 mg PRN PRN Administration HYPERTENSION Protocol Labetalol HCl 80 mg 02/23/22 14:41 02/23/22 15:18 Labetalol 5 Mg/Ml Sdv 20ml IVP 80 mg PRN PRN Administration HYPERTENSION Protocol Ondansetron HCl 4 mg 02/23/22 16:03 02/23/22 16:09 Ondansetron 2 Mg/Ml Sdv 2 Ml IVP 4 mg Q4H PRN Administration NAUSEA AND VOMITING PFSH Anesthesia Medical History (Updated 02/23/22 @ 15:49 by Jones Mason MD) Diabetes mellitus managed with metformin bid and diet by PCP. Last A1c: 09/2021 6.1% History of CVA (cerebrovascular accident) (~2019) Was unresponsive for 9 days. Minimal deficits. Right sided weakness. Some verbal decline. 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 [place] Noncompliance Surgical History No pertinent past surgical history Family History Mother Hypertension Father Hypertension Grandmother Diabetes maternal Denies family history of Colon cancer Ovarian cancer Heart disease Hypercholesteremia Breast cancer Uterine cancer Thyroid disease Stroke Female Reproductive History Date of last menstrual period: 09/18/21 : 1 Data Anesthesia : 02/23/22 14:50 02/23/22 15:50 Short CBC 02/23/22 Range/Units 14:50 WBC 17.1 H (4.0-10.0) 10^3/uL Hgb 13.9 (11.5-15.3) g/dL Hct 38.5 (37.0-47.0) % MCV 91.0 (81-99) fl Plt Count 146 (130-400) 10^3/cmm Neut % (Auto) 74.7 % Neut # (Auto) 12.75 H (1.8-7.7) 10^3/uL BMP 02/23/22 02/23/22 02/23/22 14:50 15:25 15:50 Sodium Cancelled Cancelled 129 L Potassium Cancelled Cancelled 3.4 L Chloride Cancelled Cancelled 98 Carbon Dioxide Cancelled Cancelled 17 L BUN Cancelled Cancelled 7 Creatinine Cancelled Cancelled 0.5 Glucose Cancelled Cancelled 106 Calcium Cancelled Cancelled 8.2 L Liver Function 02/23/22 02/23/22 02/23/22 Range/Units 14:50 15:25 15:50 Total Bilirubin Cancelled Cancelled 0.8 AST Cancelled Cancelled 48 H ALT Cancelled Cancelled 38 H Alkaline Phosphatase Cancelled Cancelled 75 Albumin Cancelled Cancelled 3.1 L Urine 02/23/22 Range/Units 15:00 Urine Color Yellow (Yellow) Urine Appearance Clear (CLEAR) Urine pH 5 (5-7) Ur Specific [place] 1.015 (1.005-1.030) Urine Protein 3+ H (Negative) Urine Glucose (UA) Norm (Normal) Urine Ketones Negative (Negative) Urine Nitrate Negative (Negative) Urine Bilirubin Neg (Negative) Ur Leukocyte Esterase Negative (Negative) Urine RBC None (0-2) /hpf Urine WBC None (0-5) /hpf Cardiac Studies: No Data to Display
[2022-02-23 17:42] LABS: Amphetamines Screen Urine Negative (Negative); Barbiturates Screen Urine Negative (Negative); Benzodiazepines Screen Urine Positive (Negative); Cocaine Screen Urine Negative (Negative); Opiate Screen Urine Negative (Negative); PCP Screen Urine Negative (Negative); THC Screen Urine Negative (Negative)
--- NOTE | 2022-02-23 17:42 | P.OP_ITS ---
Operative Report Date of procedure: February 23, 2022 Pre-op diagnosis: Chronic hypertension with superimposed severe preeclampsia. Abruption. Nonreassuring status. Intrauterine and 24 weeks +1-day Post-op diagnosis: Same as above Procedure done: Primary low transverse delivery Surgeon: Jones Mason MD Estimated blood loss (mL): 600 IV fluids (mL): 1,500 Brief History: Ms. Hawley 26-year-old female G1, P0 with an EGA at 24 weeks +1-day complicated by diabetes type 2, chronic hypertension and noncompliance. Came to labor and delivery complaining of abdominal pain upon evaluation blood pressure was 220/145. heart rate started to show occasional variable decelerations, ultrasound performed and when radiologist compared with previous ultrasound she informed the possibility of an abruption, and naptime heart rate baseline has decreased and starting to show further variable decelerations. The patient was informed of these findings and that she could not be transferred and a stat delivery was indicated. Procedure: After assuring verbal informed consent, the patient was taken to the operating room and anesthesia was initiated. She was placed in the dorsal supine position with a left lateral tilt. The abdomen was prepped and draped in the usual sterile manner. A time-out procedure was performed. A Pfannenstiel skin incision was made with the scalpel and carried through to the underlying layer of fascia with the Bovie. The fascia was nicked in the midline and the incision extended laterally with the Cummins scissors. The superior aspect of the fascial incision was then grasped with Inga clamps and elevated and the underlying rectus muscle dissected off bluntly [and sharp with cummins scissors dense adhesions]. Attention was then turned to the inferior aspect of the incision which, in similar fashion, was grasped and tented up with Inga clamps and the rectus muscle dissected bluntly. The rectus muscles were then in the midline and the peritoneum identified, tented up and entered sharply with Metzenbaum scissors. The peritoneal incision was then extended superiorly and inferiorly with good visualization of the bladder. The Watson O received section retractor was then inserted and the vesicouterine peritoneum identified, grasped with pickups and entered sharply with Metzenbaum scissors. This incision was then extended laterally and the bladder flap created digitally. The uterus incised in a low transverse fashion with the scalpel. The uterine incision was then extended with the bandage scissors. The infant was then delivered in the cephalic presentation atraumatically. The infant was handed immediately to the waiting screw machine set up operator tool and nursing personnel. the cord was normal and had three vessels. Amniotic fluid was clear. The placenta was then removed manually and the uterus exteriorized and cleared of all clots and debris. The uterine incision was repaired with 0 Vicryl in a running-locked fashion. A second layer of the same suture was used to obtain excellent hemostasis. The gutters were cleared of all clots. The left fallopian tube was identified and grasped with a Alvin clamp. The tube was then followed out to the fimbria. An avascular midsection of the fallopian tube was grasped with a Alvin clamp and brought into a knuckle. The tube was doubly ligated wi th an O-plain suture and transected. The specimen was sent to pathology. Excellent hemostasis was noted. The same procedure was performed on the opposite fallopian tube. The uterus was then returned to the abdomen. The rectus muscles were approximated with 3-0 chromic gut. The ON-Q pain management system placed. The fascia was reapproximated with 0 Vicryl in an interrupted running fashion. The skin was closed with Insorb?s subcuticular absorbable una. The patient tolerated the procedure well. The sponge, lap and needle counts were correct times three. The patient was given Ancef 2 gm intravenously immediately after delivery of the infant.
[2022-02-23] MEDS: ketorolac 30 mg/mL INJ IVP ×2 (18:38→23:21)
--- NOTE | 2022-02-23 19:31 | PC.NURSE ---
Two respiratory therapists were also present for delivery, as well as another surgical instrument technician, however this nurse is unsure of their names.
[2022-02-23 19:48] LABS: Magnesium Level (OB Only) 4.8 mg/dL (5.0-7.5)
--- NOTE | 2022-02-23 21:20 | PC.NURSE ---
Family and NICU team at bedside
[2022-02-23] MEDS: HYDROcodone-acetaminophen 5-325 mg Tablet PO (21:39)
[2022-02-24] VITALS (48 sets, daily range): BP systolic 136–183; BP diastolic 87–126; PULSE 71–93; RESP 13–20; TEMP 36.7; O2SAT 93–98
[2022-02-24] MEDS: labetalol 5 mg/mL SDV 20mL 40 MG IVP (00:07)
[2022-02-24] MEDS: dextrose 5%-lactated ringers 1,000 ML 125 ML IV ×2 (00:14→11:48)
[2022-02-24] MEDS: labetalol 5 mg/mL SDV 20mL 80 MG IVP (01:39)
[2022-02-24] MEDS: magnesium sulfate premix 20 GM/500 ML BAG IV ×2 (01:46→11:49)
[2022-02-24 02:00] LABS: Magnesium Level (OB Only) 5.9 mg/dL (5.0-7.5)
[2022-02-24] MEDS: HYDROcodone-acetaminophen 5-325 mg Tablet PO ×2 (03:06→21:52)
[2022-02-24] MEDS: ketorolac 30 mg/mL INJ IVP ×2 (06:05→13:55)
[2022-02-24 06:09] LABS: Basophils % 0.2 %; Hematocrit 35.4 % (37.0-47.0); Hemoglobin 12.3 g/dL (11.5-15.3); Lymphocytes # 1.8 10^3/uL (0.8-4.8); Lymphocytes % 9.6 %; Mean Corpuscular HGB Conc 34.7 g/dL (30.0-36.0); Mean Corpuscular Hemoglobin 32.5 pg (28.0-34.0); Mean Corpuscular Volume 93.7 fl (81-99); Mean Platelet Volume 10.8 fL (7.4-10.4); Monocytes # 0.4 10^3/uL (0.2-0.9); Monocytes % 2.1 %; Neutrophils # 16.22 10^3/uL (1.8-7.7); Neutrophils % 87.1 %; Nucleated Red Blood Cells % 0 %; Platelet Count 164 10^3/cmm (130-400); Red Blood Count 3.78 10^6/uL (4.1-5.3); Red Cell Distribution Width 13.2 % (12.1-15.1); White Blood Count 18.6 10^3/uL (4.0-10.0)
[2022-02-24 06:17] LABS: Alanine Aminotransferase 28 U/L (0-33); Albumin Level 3.2 g/dL (3.5-5.2); Alkaline Phosphatase 75 IU/L (35-105); Anion Gap 16.7 (5-19); Aspartate Amino Transferase 22 U/L (0-32); Blood Urea Nitrogen 7 mg/dL (6-20); Calcium 7.3 mg/dL (8.5-10.5); Carbon Dioxide 21 mmol/L (22-29); Chloride 98 mmol/L (98-107); Glucose 162 mg/dL (65-115); Osmolality Calculated 276 mOsm/kg (285-295); Potassium 3.7 mmol/L (3.5-5.1); Sodium 132 mmol/L (136-145); Total Bilirubin 0.3 mg/dL (0.15-1.2); Total Protein 6.2 g/dL (6.6-8.7); Uric Acid 6.5 mg/dL (2.4-5.7)
[2022-02-24 06:32] LABS: Urine Creatinine 97 mg/dL (28-217)
[2022-02-24 06:33] LABS: Urine Protein Random 39 mg/dL
--- NOTE | 2022-02-24 06:53 | ANE.PACU2 ---
Inpatient post-anesthesia follow up: Airway intact: Yes Vital signs: Temperature 97.9 F Pulse Rate 71 Respiratory Rate 16 Blood Pressure 151/98 Pulse Oximetry 93 Oxygen Delivery Me thod Room Air Oxygen Flow Rate 2 Fraction of Inspir ed Oxygen Hydration adequate: Yes Nausea and vomiting: No Pain level: 2 Mental status: Baseline
[2022-02-24 07:21] LABS: Glucose Point of Care 148 mg/dL (70-110)
--- NOTE | 2022-02-24 07:31 | P.PN_ITS ---
Subjective Subjective: Ms. Hawley 26-year-old female G1, P1 status post primary low transverse delivery day 1. Vitals/I&O/Wt Last Vital Signs Temp 98.7 F 02/25/22 05:30 Pulse 102 H 02/25/22 08:21 Resp 16 02/25/22 05:45 BP 164/85 02/25/22 08:21 Pulse Ox 96 02/25/22 05:45 02/24/22 02/25/22 02/25/22 22:59 06:59 14:59 Output Total 100 / 1230 550 / 1780 Balance -100 / 270 -550 / -280 Weight last 48 hrs Weight 94.347 kg Physical Exam Narrative: GA: Alert and oriented ?3. HEENT: WNL. Heart: Regular rate and rhythm. Lungs: Clear to auscultation bilaterally. Abdomen: Bowel sounds present, nontender, minimal tenderness, incision clean and dry, no redness, pain or edema. BABY NURSE: No bleeding. Extremities: No edema, no cyanosis, no calves pain. Urinary Catheter Management: Gonzalez: Cath Placed During This Visit: yes Urinary Catheter Date of Insertion: 02/23/22 Urinary Catheter Time of Insertion: 14:18 Data : 02/24/22 05:40 02/24/22 05:40 A&P Assessment and plan (1) Pre-eclampsia superimposed on chronic hypertension: Status: Acute (2) Noncompliance: Status: Acute (3) Diabetes mellitus: Status: Acute (4) Status post delivery: Mrs. Hawley 18-year-old female G1, P1 status primary delivery postoperative day 1 after emergency delivery at 24 weeks due to superimposed preeclampsia with suspected placental abruption. On magnesium sulfate, continue with elevated blood pressure. Diabetes management sliding scale. Status: Acute Attestations Medical Necessity Statement*: In my professional opinion per admitting diagnosis Coding Level of Care Code Acute Mechanical Design Engineer Facilities for [facility] Fwd Diagnoses Pre-eclampsia superimposed on chronic hypertension O11.9 Noncompliance Z91.19 Diabetes mellitus E11.9 Status post delivery Z98.891
[2022-02-24] MEDS: insulin lispro 100 unit/1 mL SUBCUT ×3 (07:39→19:54)
[2022-02-24] MEDS: labetalol 5 mg/mL SDV 20mL 20 MG IVP (07:45)
[2022-02-24 07:50] LABS: Magnesium Level (OB Only) 6.4 mg/dL (5.0-7.5)
[2022-02-24] MEDS: hyDRALAzine 20 mg/mL INJ 1 mL 5 MG IVP ×2 (08:26→11:18)
[2022-02-24] MEDS: hyDRALAzine 20 mg/mL INJ 1 mL 10 MG IVP (09:24)
--- NOTE | 2022-02-24 10:19 | PC.NURSE ---
[facility] DFS worker at bedside with patient. AR RN
--- NOTE | 2022-02-24 10:38 | PC.NURSE ---
Hotline call made by this RN to report pos UDS at [phone]. This RN spoke with Javier, worker number [id number] CASSIE DOS SANTOS
[2022-02-24 11:43] LABS: Glucose Point of Care 166 mg/dL (70-110)
--- NOTE | 2022-02-24 12:00 | PC.NURSE ---
Patient states to this RN she has passed gas. CASSIE DOS SANTOS
--- NOTE | 2022-02-24 13:12 | PC.NURSE ---
Lab notified of failed draw by RN. Lab requested to draw ordered magnesium level.
[2022-02-24 14:17] LABS: Magnesium Level (OB Only) 6.4 mg/dL (5.0-7.5)
--- NOTE | 2022-02-24 16:20 | PC.NURSE ---
Gonzalez discontinued, magnesium stopped per orders from Dr. Mason. Patient assisted by this RN with changing gown. Bed linens changed. Patient up to chair for clear liquids. Will advance as tolerated per order from .
--- NOTE | 2022-02-24 16:42 | PC.NURSE ---
Patient tolerates clear liquids. Diabetic diet ordered. Metformin resumed as per Dr. Mason ordered when she is taking PO. CASSIE DOS SANTOS
[2022-02-24] MEDS: acetaminophen 325 mg Tablet 650 MG PO (17:31)
[2022-02-24] MEDS: duloxetine 20 mg Capsule PO (17:31)
[2022-02-24] MEDS: docusate sodium 100 mg Capsule PO (17:31)
[2022-02-24] MEDS: metformin 500 mg Tablet PO (17:31)
--- NOTE | 2022-02-24 18:08 | PC.NURSE ---
Patient up ambulating with standby assist. Tolerates activity well. AR RN
[2022-02-24 19:53] LABS: Glucose Point of Care 270 mg/dL (70-110)
[2022-02-24 22:10] LABS: Glucose Point of Care 77 mg/dL (70-110)
[2022-02-24] MEDS: hyDROXYzine 25 mg Capsule 50 MG PO (23:45)
[2022-02-25] VITALS (22 sets, daily range): BP systolic 133–195; BP diastolic 76–125; PULSE 81–106; RESP 16–18; TEMP 36.9–37.2; O2SAT 96–98
[2022-02-25] MEDS: HYDROcodone-acetaminophen 5-325 mg Tablet PO ×2 (05:50→12:27)
[2022-02-25] MEDS: labetalol 5 mg/mL SDV 20mL 20 MG IVP ×2 (05:52→16:44)
[2022-02-25] MEDS: labetalol 200 mg Tablet 400 MG PO ×2 (08:43→18:11)
[2022-02-25] MEDS: docusate sodium 100 mg Capsule PO ×2 (08:43→18:11)
[2022-02-25] MEDS: metformin 500 mg Tablet PO ×2 (08:44→18:10)
[2022-02-25] MEDS: prenatal vitamin Capsule 1 CAP PO (08:44)
[2022-02-25] MEDS: duloxetine 20 mg Capsule PO ×2 (08:44→18:11)
[2022-02-25] MEDS: acetaminophen 325 mg Tablet 650 MG PO ×2 (09:47→18:10)
[2022-02-25 10:17] LABS: Glucose Point of Care 142 mg/dL (70-110)
[2022-02-25] MEDS: insulin lispro 100 unit/1 mL SUBCUT ×2 (10:28→19:44)
--- NOTE | 2022-02-25 10:36 | P.PN_ITS ---
Subjective Subjective: Mrs. Hawley 26-year-old female G1, P1 is status post primary delivery postoperative day 2. Pain under Control. Vitals/I&O/Wt Last Vital Signs Temp 98.7 F 02/25/22 05:30 Pulse 102 H 02/25/22 08:21 Resp 16 02/25/22 05:45 BP 164/85 02/25/22 08:21 Pulse Ox 96 02/25/22 05:45 02/24/22 02/25/22 02/25/22 22:59 06:59 14:59 Output Total 100 / 1230 550 / 1780 Balance -100 / 270 -550 / -280 Weight last 48 hrs Weight 94.347 kg Physical Exam Narrative: GA: Alert and oriented ?3. HEENT: WNL. Heart: Regular rate and rhythm. Breasts: engorged Nipples - skin intact Lungs: Clear to auscultation bilaterally. Abdomen: Bowel sounds present, nontender, minimal tenderness, incision clean and dry, no redness, pain or edema. AUTOMOTIVE MANUFACTURER: Perineum: normal lochia. Extremities: +1 edema, no cyanosis, no calves pain. Urinary Catheter Management: Gonzalez: Cath Placed During This Visit: yes Urinary Catheter Date of Insertion: 02/23/22 Urinary Catheter Time of Insertion: 14:18 Data : 02/24/22 05:40 02/24/22 05:40 A&P Assessment and plan (1) Status post delivery: Mrs. Hawley 18-year-old female G1, P1 status primary delivery postoperative day 2 after emergency delivery at 24 weeks due to superim posed preeclampsia with suspected placental abruption. She is afebrile and hemodynamically stable. Tolerating diet well, ambulating without difficulty. magnesium sulfate continue after 24 hours and good diuresis. She continue with elevated blood pressure. Change blood pressure medication to p.o. I will continue to observe to see if p.o. medications controls her blood pressure. She was counseled regarding compliance with diabetes and blood pressure medication again. Diabetes management with sliding scale, will start her on p.o. metformin. Status: Acute (2) Pre-eclampsia superimposed on chronic hypertension: Status: Acute (3) Noncompliance: Status: Acute (4) Diabetes mellitus: Status: Acute Attestations Medical Necessity Statement*: My professional opinion per admitting diagnosis. Coding Level of Care Code Acute Project Eng for [facility] Diagnoses Pre-eclampsia superimposed on chronic hypertension O11.9 Noncompliance Z91.19 Diabetes mellitus E11.9 Status post delivery Z98.891
[2022-02-25 14:10] LABS: Glucose Point of Care 108 mg/dL (70-110)
--- NOTE | 2022-02-25 17:26 | P.CONIM_ITS ---
Providers/Reason For Consult Consulting Physician/Specialty*: Dr. Juarez Reason for Consult*: Uncontrolled high blood pressures Requesting Physician: Dr. Mason Attending Physician: Jones Mason MD Primary Care Provider: Margarita Ward History of Present Illness History of Present Illness Zoe Hawley is a 26 year old female with past medical history of uncontrolled hypertension, CVA, amphetamine abuse, type 2 diabetes mellitus who was admitted to the OB unit on 02/23 for preeclampsia and underwent emergent section. Patient was on IV magnesium till yesterday. Since today morning her blood pressures have been uncontrolled requiring multiple IV pushes hence hospitalist team was consulted for management of high blood pressures. On review of chart it seems patient's blood pressure has been going up as high as 192/125 mmHg. She has received 2 boluses of 20 mg IV labetalol and oral 400 mg of labetalol. During my examination patient blood pressure is 180/1 112 mmHg. She has received 20 mg of IV labetalol 15 minutes prior to my interview. On review of chart till late last year patient was on carvedilol 25 mg twice daily, lisinopril 20 mg daily, hydralazine 50 mg 3 times daily, amlodipine 10 mg. Medication was changed to labetalol 400 mg twice daily during . Patient states that when she was on oral medications prior to being her blood pressures were well controlled. She denies of any nausea vomiting, headache, chest pain was complaining of bilateral arm heaviness on and off since today morning. Denies of having any dizziness, anxiety, epistaxis. Review of Systems General: Reports: 10 or more systems reviewed and unremarkable except in HPI and below Const: Denies: fever(s), chills, body aches, change in appetite, change in weight, malaise, night sweats, diaphoresis, change in sleep pattern, daytime sleepiness or snoring Eyes: Denies: change in vision, blurry vision, photophobia, eye discomfort or eye discharge ENMT: Denies: throat pain, enlarged tonsils, hoarseness, mouth pain, oral sores, dry mouth, tinnitus, nasal congestion or post nasal drip Card: Denies: chest pain, palpitations, irregular heart rhythm, edema, swelling of feet/ankles, lightheadedness, syncope, pre-syncope, dyspnea on exertion, orthopnea, leg pain with exertion or acrocyanosis Resp: Denies: dyspnea, productive cough, non-productive cough, wheezing, st ridor, pain on inspiration, change in phlegm color, hemoptysis or chest congestion GI: Denies: abdominal pain, nausea, vomiting, hematemesis, coffee ground emesis, dysphagia, heartburn, diarrhea, constipation, bloating, GI cramping, change in bowel habits, pain on defecation, hematochezia or melena : Denies: flank pain, dysuria, urinary frequency, urinary urgency, urinary hesitancy, nocturia or hematuria Musc: Denies: neck pain, back pain, extremity pain, joint pain, joint swelling, joint redness, joint stiffness or limited range of motion Neuro: Denies: headache(s), numbness in extremities, weakness in extremities, sensory changes, lack of coordination, difficulty walking, frequent falls, dizziness, vertigo, confusion, Slurred speech present, difficulty communicating thoughts or seizure-like activity Psych: Denies: anxiety, depression, mood swings, panic attacks, hopelessness or irritability Endo: Denies: polyuria, polydipsia, tired all the time, cold intolerance, excessive sweating, flushing or heat intolerance Art/Lymph: Denies: easy bruising or easy bleeding All/Imm: Denies: tongue swelling, facial swelling or acute wheezing Medications/Allergies Home Medications Medication Instructions Recorded Confirmed Last Taken Type acetaminophen 650 mg 1,300 mg PO Q12H PRN 05/27/21 02/21/22 Unknown History tablet,extended release (Tylenol Arthritis Pain) diphenhydramine HCl 25 mg capsule 50 mg PO Q4H PRN 05/27/21 02/21/22 02/23/22 06:00 History (Benadryl) duloxetine 20 mg capsule,delayed 20 mg PO BID 30 Days #60 cap 06/02/21 02/21/22 02/23/22 06:00 Rx release metformin 500 mg tablet 500 mg PO BID 12/07/21 02/21/22 02/23/22 06:00 History prenat.vits,kal,asn-[id number]-uqojb 1 tab PO DAILY 12/07/21 02/21/22 02/23/22 06:00 History labetalol 200 mg tablet See Rx Instructions .ROUTE 01/17/22 02/21/22 02/21/22 07:00 Rx .COMPLEX #120 tab aspirin 81 mg capsule 81 mg PO DAILY 02/23/22 02/23/22 02/23/22 06:00 History Allergies Allergy/AdvReac Type Severity Reaction Status Date / Time No Known Allergies Allergy Verified 02/21/22 07:59 Current Medications Generic Name Dose Route Start Last Admin Trade Name Freq PRN Reason Stop Dose Admin Acetaminophen 650 mg 02/23/22 17:51 02/25/22 09:47 Acetaminophen 325 Mg Tablet PO 650 mg Q6H PRN Administration Mild Pain or Temp >100.4 Hydrocodone Bitart/Acetaminophen 1 - 2 tab 02/23/22 17:51 02/25/22 12:27 Hydrocodone-Acetaminophen 5-325 Mg Tablet PO 2 tab Q4H PRN Administration MODERATE TO SEVERE PAIN Docusate Sodium 100 mg 02/23/22 18:00 02/25/22 08:43 Docusate Sodium 100 Mg Capsule PO 100 mg BID MIGNON Administration Duloxetine HCl 20 mg 02/24/22 09:00 02/25/22 08:44 Duloxetine 20 Mg Capsule PO 20 mg BID MIGNON Administration Ferrous Sulfate 325 mg 02/23/22 18:00 02/25/22 14:32 Ferrous Sulfate Ec 325 Mg Tablet PO Not Given BIDWM MIGNON Hydroxyzine Pamoate 50 mg 02/23/22 17:51 02/24/22 23:45 Hydroxyzine 25 Mg Capsule PO 50 mg BEDTIME PRN Administration Sleep, agitation or itching Dextrose/Lactated Ringer's 1,000 mls @ 125 mls/hr 02/23/22 15:30 02/25/22 14:36 Dextrose 5%-Lactated Ringers IV Not Given .Q8H MIGNON Magnesium Sulfate 20 gm in 500 mls @ 50 mls/hr 02/23/22 15:30 02/25/22 14:36 Magnesium Sulfate Premix IV Not Given .Q10H MIGNON Lactated Ringer's 1,000 mls @ 125 mls/hr 02/23/22 16:15 02/25/22 14:34 Lactated Ringers IV Not Given .Q8H MIGNON Dextrose/Lactated Ringer's 1,000 mls @ 125 mls/hr 02/23/22 18:00 02/25/22 14:35 Dextrose 5%-Lactated Ringers IV Not Given .Q8H MIGNON Dextrose/Lactated Ringer's 1,000 mls @ 125 mls/hr 02/23/22 18:00 02/25/22 14:35 Dextrose 5%-Lactated Ringers IV Not Given .Q8H MIGNON Magnesium Sulfate 20 gm in 500 mls @ 50 mls/hr 02/23/22 18:00 02/25/22 14:34 Magnesium Sulfate Premix IV Not Given .Q10H MIGNON Ibuprofen 800 mg 02/24/22 22:00 02/25/22 15:04 Ibuprofen 800 Mg Tablet PO Not Given TID MIGNON Insulin Human Lispro 0 unit 02/24/22 18:00 02/25/22 14:32 Insulin Lispro 100 Unit/1 Ml SUBCUT Not Given TIDWM [facility] Protocol Labetalol HCl 20 mg 02/23/22 14:41 02/25/22 16:44 Labetalol 5 Mg/Ml Sdv 20ml IVP 20 mg PRN PRN Administration HYPERTENSION Protocol Labetalol HCl 400 mg 02/25/22 09:00 02/25/22 08:43 Labetalol 200 Mg Tablet PO 400 mg BID MIGNON Administration Metformin HCl 500 mg 02/24/22 18:00 02/25/22 08:44 Metformin 500 Mg Tablet PO 500 mg BIDWM MIGNON Administration Ondansetron HCl 4 mg 02/23/22 16:03 02/23/22 16:09 Ondansetron 2 Mg/Ml Sdv 2 Ml IVP 4 mg Q4H PRN Administration NAUSEA AND VOMITING Multivit/Folic Acid/Iron 1 cap 02/24/22 08:00 02/25/22 08:44 Vitamin Capsule PO 1 cap BREAKFAST MIGNON Administration PFSH Acute PFSH: Medical History (Updated 02/25/22 @ 17:29 by Gallo Juarez MD) Diabetes mellitus managed with metformin bid and diet by PCP. Last A1c: 09/2021 6.1% History of CVA (cerebrovascular accident) (~2019) Was unresponsive for 9 days. Minimal deficits. Right sided weakness. Some verbal decline. 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 [place] Noncompliance Surgical History (Updated 02/25/22 @ 10:33 by Jones Mason MD) No pertinent past surgical history Family History Mother Hypertension Father Hypertension Grandmother Diabetes maternal Denies family history of Colon cancer Ovarian cancer Heart disease Hypercholesteremia Breast cancer Uterine cancer Thyroid disease Stroke Female Reproductive History: Date of last menstrual period: 09/18/21 : 1 Vitals/I&O/Wt Last Vital Signs Temp 98.9 F 02/25/22 16:20 Pulse 86 02/25/22 16:40 Resp 18 02/25/22 16:20 BP 182/112 02/25/22 16:40 Pulse Ox 98 02/25/22 16:20 02/25/22 02/25/22 02/25/22 06:59 14:59 22:59 Output Total 550 / 1780 700 / 700 Balance -550 / -280 -700 / -700 Physical Exam Narrative: General: No acute distress, AO x3, pleasant HEENT: PERRLA, pupils bilaterally equal and reactive Chest: Normal vesicular breath sounds, no added sounds, equal good air entry bilaterally CVS: S1-S2 regular, no murmurs, no tachycardia, no gallops, no rubs Abdomen: Soft, nontender, no organomegaly, bowel sounds present Neuro: No focal deficits, no facial deformity, AO x3, power 5/5 in all limbs Urinary Catheter Management: Gonzalez: Cath Placed During This Visit: yes Urinary Catheter Date of Insertion: 02/23/22 Urinary Catheter Time of Insertion: 14:18 Data : 02/24/22 05:40 02/24/22 05:40 A&P Assessment and plan (1) Uncontrolled hypertension: Patient needs to be on 4 antihypertensives including 10 mg of amlodipine, 50 mg 3 times daily of hydralazine, 25 mg of carvedilol, 20 mg of lisinopril. Prior to when medication were changed to labetalol 400 mg twice daily. Continue labetalol 4 mg twice daily. Add amlodipine 10 mg, hydralazine 50 mg 4 times daily. Can use hydralazine 10 mg IV every 4 hours as needed for systolic blood pressure more than 180 mmHg. Will uptitrate medications as per blood pressure monitoring. Goal blood pressu re less than 140/90 mmHg. Stat EKG. Status: Acute (2) Pre-eclampsia superimposed on chronic hypertension: Status: Acute (3) Status post delivery: Status: Acute Plan Type 2 diabetes mellitus. Thank you for consulting hospitalist team for care of Ms. Hawley. Please call with any questions. Full code. SCDs for DVT prophylaxis. Cardiac carb consistent diet. Consult Attestations Medical Necessity Statement: As per primary team Time Spent in Patient Care: Greater than 35 minutes Coding Level of Care Code Acute Computational Geneticist for Chg Fwd Diagnoses Pre-eclampsia superimposed on chronic hypertension O11.9 Status post delivery Z98.891 Uncontrolled hypertension I10
--- NOTE | 2022-02-25 17:27 | ECG_ITS ---
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 Measurements Intervals [place] Rate: 100 P: 43 MD: 140 QRS: -16 QRSD: 75 T: 126 QT: 368 QTc: 476 Interpretive Statements SINUS TACHYCARDIA LEFT VENTRICULAR HYPERTROPHY AND ST-T CHANGE [VOLTAGE CRITERIA PLUS ST/T ABNORMALITY] Compared to ECG 05/27/2021 12:11:15 No significant changes Electronically Signed On 02-25-2022 20:14:53 CDT by Jose Oshea M.D. [id number]
[2022-02-25] MEDS: hyDRALAzine 20 mg/mL INJ 1 mL 10 MG IVP (17:41)
[2022-02-25] MEDS: amlodipine 10 mg Tablet PO (17:41)
[2022-02-25 19:02] LABS: Glucose Point of Care 159 mg/dL (70-110)
[2022-02-25] MEDS: hyDROXYzine 25 mg Capsule 50 MG PO (21:39)
[2022-02-25] MEDS: hyDRALAzine 50 mg Tablet PO (21:39)
[2022-02-25 21:48] LABS: Glucose Point of Care 91 mg/dL (70-110)
[2022-02-26 04:30] VITALS: BP 153/95; PULSE 93; RESP 18; TEMP 36.8
[2022-02-26] MEDS: HYDROcodone-acetaminophen 5-325 mg Tablet PO ×3 (04:52→14:54)
[2022-02-26 05:02] LABS: Basophils # 0.1 10^3/uL (0.0-0.1); Basophils % 0.4 %; Eosinophils # 0.2 10^3/uL (0.0-0.8); Hematocrit 32.5 % (37.0-47.0); Hemoglobin 10.7 g/dL (11.5-15.3); Lymphocytes # 3.5 10^3/uL (0.8-4.8); Lymphocytes % 22.4 %; Mean Corpuscular HGB Conc 32.9 g/dL (30.0-36.0); Mean Corpuscular Hemoglobin 32.4 pg (28.0-34.0); Mean Corpuscular Volume 98.5 fl (81-99); Mean Platelet Volume 10.2 fL (7.4-10.4); Monocytes # 0.7 10^3/uL (0.2-0.9); Monocytes % 4.7 %; Neutrophils # 10.75 10^3/uL (1.8-7.7); Neutrophils % 69.9 %; Nucleated Red Blood Cells % 0 %; Platelet Count 194 10^3/cmm (130-400); White Blood Count 15.4 10^3/uL (4.0-10.0)
[2022-02-26 05:23] LABS: Alanine Aminotransferase 14 U/L (0-33); Albumin Level 3.3 g/dL (3.5-5.2); Alkaline Phosphatase 75 IU/L (35-105); Anion Gap 14.4 (5-19); Aspartate Amino Transferase 13 U/L (0-32); Blood Urea Nitrogen 11 mg/dL (6-20); Carbon Dioxide 24 mmol/L (22-29); Chloride 102 mmol/L (98-107); Globulin 2.9 g/dL (1.3-4.6); Glomerular Filtration Rate 146.9 mL/min (90-130); Glucose 96 mg/dL (65-115); Osmolality Calculated 283 mOsm/kg (285-295); Potassium 3.4 mmol/L (3.5-5.1); Sodium 137 mmol/L (136-145); Total Bilirubin 0.4 mg/dL (0.15-1.2); Total Protein 6.2 g/dL (6.6-8.7)
[2022-02-26] MEDS: duloxetine 20 mg Capsule PO (08:28)
[2022-02-26] MEDS: docusate sodium 100 mg Capsule PO (08:28)
[2022-02-26] MEDS: metformin 500 mg Tablet PO (08:28)
[2022-02-26] MEDS: hyDRALAzine 50 mg Tablet PO ×2 (08:28→14:55)
[2022-02-26] MEDS: prenatal vitamin Capsule 1 CAP PO (08:28)
[2022-02-26] MEDS: amlodipine 10 mg Tablet PO (08:28)
[2022-02-26] MEDS: ferrous sulfate EC 325 mg Tablet PO (08:28)
[2022-02-26 08:30] VITALS: BP 200/113
[2022-02-26 09:15] VITALS: BP 172/104
[2022-02-26] MEDS: labetalol 200 mg Tablet 400 MG PO (09:17)
[2022-02-26 10:43] VITALS: BP 133/78; PULSE 83; RESP 17; TEMP 36.7
--- NOTE | 2022-02-26 10:43 | PM.PN ---
Subjective Subjective: Documents overnight. On review of chart it seems blood pressures are better controlled. Patient required 1 dose of IV hydralazine yesterday evening around 5 PM. Today morning blood pressures are elevated to 170 systolics but only hydralazine and amlodipine has been given and labetalol has not been given yet. After getting labetalol 400 mg morning dose of blood pressures are better controlled and down to 133 systolics. Vitals/I&O/Wt Last Vital Signs Temp 98.2 F 02/26/22 04:30 Pulse 93 02/26/22 04:30 Resp 18 02/26/22 04:30 BP 172/104 02/26/22 09:15 Pulse Ox 98 02/25/22 16:20 Physical Exam Narrative: General: No acute distress, AO x3, pleasant HEENT: PERRLA, pupils bilaterally equal and reactive Chest: Normal vesicular breath sounds, no added sounds, equal good air entry bilaterally CVS: S1-S2 regular, no murmurs, no tachycardia, no gallops, no rubs Abdomen: Soft, nontender, no organomegaly, bowel sounds present Neuro: No focal deficits, no facial deformity, AO x3, power 5/5 in all limbs Urinary Catheter Management: Gonzalez: Cath Placed During This Visit: yes Urinary Catheter Date of Insertion: 02/23/22 Urinary Catheter Time of Insertion: 14:18 Data : 02/26/22 04:45 02/26/22 04:45 A&P Assessment and plan (1) Uncontrolled hypertension: Patient needs to be on 4 antihypertensives including 10 mg of amlodipine, 50 mg 3 times daily of hydralazine, 25 mg of carvedilol, 20 mg of lisinopril. Prior to when medication were changed to labetalol 400 mg twice daily. Continue labetalol 400 mg twice daily. Add amlodipine 10 mg, hydralazine 50 mg 4 times daily. We will also put on lisinopril 10 mg oral daily. Can use hydralazine 10 mg IV every 4 hours as needed for systolic blood pressure more than 180 mmHg. Will uptitrate medications as per blood pressure monitoring. Goal blood pressure less than 150-160 /90 mmHg. Given persistently elevated blood pressure will not target for strict 140/90 mmHg for now to prevent from relative hypotension given recent LS CS. We will plan to get pressures down to around 150 to 160 mmHg and if they remain stable can plan to discharge accordingly with advised to follow-up with primary care provider within next 1 week for obstructive control at that point down to 140/90 mmHg. Status: Acute (2) Pre-eclampsia superimposed on chronic hypertension: Status: Acute (3) Status post delivery: Status: Acute Plan Type 2 diabetes mellitus. Thank you for consulting hospitalist team for care of Ms. Hawley. Please call with any questions. Full code. SCDs for DVT prophylaxis. Cardiac carb consistent diet. Plan for day: Continue with labetalol 400 mg twice daily, hydralazine 50 mg 4 times daily, amlodipine 10 mg daily. Add lisinopril 10 mg oral daily. If blood pressures are less than 160 systolics can plan to discharge patient with advised to follow-up with primary care provider as needed within next 1 week. We will also advise patient to maintain a blood pressure diary when checking blood pressures twice daily at home and follow-up with the primary care provider within next 1 week for further adjustment of antihypertensives. Care discussed in detail with patient's nursing staff. Attestations Medical Necessity Statement*: As per primary team. Uncontrolled hypertension. Time Spent in Patient Care: Greater than 35 minutes Coding Level of Care Code Acute Water Pumping Station Engineer for Rita Fwd Diagnoses Uncontrolled hypertension I10 Pre-eclampsia superimposed on chronic hypertension O11.9 Status post delivery Z98.891
[2022-02-26] MEDS: lisinopril 20 mg Tablet 10 MG PO (11:02)
[2022-02-26 11:06] LABS: Glucose Point of Care 141 mg/dL (70-110)
[2022-02-26] MEDS: insulin lispro 100 unit/1 mL SUBCUT (11:09)
[2022-02-26 12:50] VITALS: BP 122/77; PULSE 96; RESP 17; TEMP 36.8
--- NOTE | 2022-02-26 13:02 | P.DS_ITS ---
Discharge Providers WEB MARKETING STRATEGIST Date of Admission: 02/23/22 15:50 Date of Discharge: 02/26/22 Attending Provider at Admission: Jones Mason MD Attending Provider at Discharge: Jones Mason MD Primary WEB MARKETING STRATEGIST: Jones Mason MD Primary Care Provider: Margarita Ward Diagnoses at Discharge Discharge Diagnosis (1) Status post delivery: Status: Acute (2) Pre-eclampsia superimposed on chronic hypertension: Status: Acute (3) Diabetes mellitus: Status: Acute Permanent problem details: managed with metformin bid and diet by PCP. Last A1c: 09/2021 6.1% (4) Hypertension: Status: Acute Qualifiers: Hypertension type: unspecified Qualified Code(s): I10 - Essential (p rimary) hypertension Permanent problem details: transitioned from carvedilol to labatelol; 200mg bid since early Nov 2021 (5) Noncompliance: Status: Acute Reason for Visit Reason for Visit: Abdominal pain Hospital Course Hospital Course Mrs. Ramirez 26-year-old female . Came to labor and delivery with chief complaint of abdominal pain at 24 weeks ago estimated gestational age complicated with diabetes and chronic hypertension. Upon evaluation her blood pressure was 220/145. She had not been taking her blood pressure and diabetes. She was diagnosed with superimposed preeclampsia and was suspected of placental abruption. heart tracing was nonreassuring with decelerations and decreasing baseline. Ultrasound was immediately ordered and radiologist later changed her diagnosis to possible abruption. An emergency delivery was performed. The was managed by academic advisement director who later transferred the to [facility] in [place]. /postop observation was complicated by uncontrolled blood pressure. Internal medicine hospitalist was consulted and blood pressure was brought under control with 4 different blood pressure medication. The patient was counseled regarding compliance with medication again. She is afebrile and hemodynamically stable. Tolerating diet well. Ambulating without difficulty. She was instructed to follow-up at the clinic in 1 week to monitor her blood pressure and blood sugar levels. Information Peripartum Data: Infant Delivery Method: Vaginal Physical Exam Narrative: GA; alert and oriented x 3 HEENT: normal Breasts: engorged Nipples - skin intact Lungs; clear to auscultation Heart: regular rhythm, no murmurs. Abd: Appropriately tender. BS+. Uterine fundus below umbilicus. No Fundal Tenderness. Minimal tenderness, incision clean and dry, no redness, pain or edema. Perineum: normal lochia. Extremities: no edema, no cyanosis, no tenderness. Urinary Catheter Management: Gonzalez: Cath Placed During This Visit: yes Urinary Catheter Date of Insertion: 02/23/22 Urinary Catheter Time of Insertion: 14:18 History History History 1 Term 0 Miscarriages/Ectopic 0 0 Living Children 0 Discharge Data Studies Completed and Pending Completed Studies During Hospitalization Category Date Time Status XR KUB portable [id number] Stat Exams 02/23/22 17:04 Completed US OB limited [id number] Stat Ultrasound 02/23/22 14:42 Completed Pending at discharge Category Date Time Status Benzodiazepine Confirmation Ur Routine Lab 02/23/22 19:00 Received Pathology: Surgical [PTH] Routine Pth 02/23/22 20:10 Received Radiology Impressions Obstetrics Ultrasound 02/23/22 14:42 IMPRESSION: 1. Increased echogenicity in the retroplacental location with a maximum diameter of 9 mm. This is a new finding as compared to 12/16/2021 and a small retropl acental hemorrhage is not excluded. Follow-up ultrasound recommended. 2. Low normal heart rate. Notified Jones Mason MD at 02/23/2022 4:15 PM. KUB X-Ray 02/23/22 17:04 Impression: Negative KUB. Laboratory Results WBC 15.4 10^3/uL (4.0-10.0) H 02/26/22 04:45 RBC 3.30 10^6/uL (4.1-5.3) L 02/26/22 04:45 Hgb 10.7 g/dL (11.5-15.3) L 02/26/22 04:45 Hct 32.5 % (37.0-47.0) L 02/26/22 04:45 MCV 98.5 fl (81-99) 02/26/22 04:45 MCH 32.4 pg (28.0-34.0) 02/26/22 04:45 MCHC 32.9 g/dL (30.0-36.0) 02/26/22 04:45 RDW 14.0 % (12.1-15.1) 02/26/22 04:45 Plt Count 194 10^3/cmm (130-400) 02/26/22 04:45 MPV 10.2 fL (7.4-10.4) 02/26/22 04:45 Neut % (Auto) 69.9 % 02/26/22 04:45 Lymph % (Auto) 22.4 % 02/26/22 04:45 [place] % (Auto) 4.7 % 02/26/22 04:45 Eos % (Auto) 1.0 % 02/26/22 04:45 Baso % (Auto) 0.4 % 02/26/22 04:45 Neut # (Auto) 10.75 10^3/uL (1.8-7.7) H 02/26/22 04:45 Lymph # (Auto) 3.5 10^3/uL (0.8-4.8) 02/26/22 04:45 [place] # (Auto) 0.7 10^3/uL (0.2-0.9) 02/26/22 04:45 Eos # (Auto) 0.2 10^3/uL (0.0-0.8) 02/26/22 04:45 Baso # (Auto) 0.1 10^3/uL (0.0-0.1) 02/26/22 04:45 Nucleated RBC % (auto) 0 % 02/26/22 04:45 Nucleated RBCs # 0.0 /100WBC 02/26/22 04:45 Sodium 137 mmol/L (136-145) 02/26/22 04:45 Potassium 3.4 mmol/L (3.5-5.1) L 02/26/22 04:45 Chloride 102 mmol/L (98-107) 02/26/22 04:45 Carbon Dioxide 24 mmol/L (22-29) 02/26/22 04:45 Anion Gap 14.4 (5-19) 02/26/22 04:45 BUN 11 mg/dL (6-20) 02/26/22 04:45 Creatinine 0.5 mg/dL (0.5-0.9) 02/26/22 04:45 GFR Calculation 146.9 mL/min (90-130) H 02/26/22 04:45 Glucose 96 mg/dL (65-115) 02/26/22 04:45 POC Glucose 141 mg/dL (70-110) H 02/26/22 11:01 Calculated Osmolality 283 mOsm/kg (285-295) L 02/26/22 04:45 Uric Acid 6.5 mg/dL (2.4-5.7) H 02/24/22 05:40 Calcium 8.0 mg/dL (8.5-10.5) L 02/26/22 04:45 Magnesium 6.4 mg/dL (5.0-7.5) 02/24/22 13:45 Total Bilirubin 0.4 mg/dL (0.15-1.2) 02/26/22 04:45 AST 13 U/L (0-32) 02/26/22 04:45 ALT 14 U/L (0-33) 02/26/22 04:45 Alkaline Phosphatase 75 IU/L (35-105) 02/26/22 04:45 Total Protein 6.2 g/dL (6.6-8.7) L 02/26/22 04:45 Albumin 3.3 g/dL (3.5-5.2) L 02/26/22 04:45 Globulin 2.9 g/dL (1.3-4.6) 02/26/22 04:45 Urine Color Yellow (Yellow) 02/23/22 15:00 Urine Appearance Clear (CLEAR) 02/23/22 15:00 Urine pH 5 (5-7) 02/23/22 15:00 Ur Specific [place] 1.015 (1.005-1.030) 02/23/22 15:00 Urine Protein 3+ (Negative) H 02/23/22 15:00 Urine Glucose (UA) Norm (Normal) 02/23/22 15:00 Urine Ketones Negative (Negative) 02/23/22 15:00 Urine Blood Neg (Negative) 02/23/22 15:00 Urine Nitrate Negative (Negative) 02/23/22 15:00 Urine Bilirubin Neg (Negative) 02/23/22 15:00 Urine Urobilinogen Norm mg/dL (Negative) 02/23/22 15:00 Ur Leukocyte Esterase Negative (Negative) 02/23/22 15:00 Urine RBC None /hpf (0-2) 02/23/22 15:00 Urine WBC None /hpf (0-5) 02/23/22 15:00 Ur Squamous Epith Cells 0-4 /hpf (0-5) H 02/23/22 15:00 Amorphous Sediment Not Reportable 02/23/22 15:00 Urine Bacteria None /hpf (NONE) 02/23/22 15:00 U Random Total Protein 39 mg/dL 02/24/22 05:40 Urine Creatinine 97 mg/dL (28-217) 02/24/22 05:40 Protein/Creatinin Ratio 0.40 mg/mg CR 02/24/22 05:40 Urine Opiates Screen Negative ng/mL (Negative) 02/23/22 15:00 Ur Barbiturates Screen Negative ng/mL (Negative) 02/23/22 15:00 Ur Phencyclidine Scrn Negative ng/mL (Negative) 02/23/22 15:00 Ur Amphetamines Screen Negative ng/mL (Negative) 02/23/22 15:00 U Benzodiazepines Scrn Positive ng/mL (Negative) H 02/23/22 15:00 Urine Cocaine Screen Negative ng/mL (Negative) 02/23/22 15:00 U Marijuana (THC) Screen Negative ng/mL (Negative) 02/23/22 15:00 Vitals Last Vital Signs Temp 98.3 F 02/26/22 12:50 Pulse 96 02/26/22 12:50 Resp 17 02/26/22 12:50 BP 122/77 02/26/22 12:50 Pulse Ox 98 02/25/22 16:20 Discharge Plan Discharge Patient Disposition: Home Condition: Stable Prescriptions: New labetalol 200 mg Tablet 400 mg PO BID Qty: 120 3RF lisinopril 20 mg Tablet 10 mg PO DAILY Qty: 30 0RF amlodipine 10 mg Tablet 10 mg PO DAILY Qty: 60 3RF docusate sodium 100 mg Capsule 100 mg PO BID Qty: 60 0RF hydralazine 50 mg Tablet 50 mg PO QID Qty: 120 3RF duloxetine 20 mg Capsule,Delayed Release(Dr/Ec) 20 mg PO BID Qty: 60 3RF ibuprofen 800 mg tablet 800 mg PO TID PRN (Reason: pain) Qty: 60 0RF hydrocodone-acetaminophen 5-325 mg tablet 1 tab PO Q4H PRN (Reason: pain) Qty: 30 0RF Iron (ferrous sulfate) 325 mg (65 mg iron) tablet 325 mg PO BID Qty: 60 0RF acetaminophen 325 mg capsule 325 mg PO Q4H PRN (Reason: fever or pain) Qty: 60 0RF Continued prenat.vits,kal,[id number]-[id number]-njacr Tablet 1 tab PO DAILY 0RF diphenhydramine HCl [Benadryl] 25 mg Capsule 50 mg PO Q4H PRN (Reason: UNKNOWN) 0RF aspirin 81 mg Capsule 81 mg PO DAILY 0RF metformin 500 mg tablet 500 mg PO BID Qty: 60 3RF labetalol 200 mg tablet See Rx Instructions .ROUTE .COMPLEX Qty: 120 1RF Dose Instruction: Take 2 tablets by mouth twice daily Rx Instructions: Take 2 tablets by mouth twice daily Tylenol Arthritis Pain 650 mg Tablet Extended Release 1,300 mg PO Q12H PRN (Reason: Pain) Qty: 60 3RF duloxetine 20 mg Capsule,Delayed Release(Dr/Ec) 20 mg PO BID 30 Days Qty: 60 1RF Discharge Orders: Discharge Order (Routine); Ordered 02/26/22 Ordered By: Jones Mason Referrals: Jones Mason MD [Physician] - 1 week (Follow-up on blood pressure and blood sugar level) Discharge Diet: Diabetic and Low Salt Patient Instructions: Preeclampsia and Eclampsia After Delivery (GEN), Hemorrhage (DC), OB [facility], OB Discharge Report, OB Food/Drug Interaction Guide, Opioid Safety, OB Home Care, OB Proud Parent Packet, Depression, Placental Abruption (GEN), Chronic Hypertension (ED), Preeclampsia During (GEN) Activity Restrictions/Additional Instructions: 1. Please call [facility] on next working day to make your post-operative appointment in 1 week. 2. Please stay home until you come back to the clinic on first post-operative check up. 3. Please follow instructions on your medications CAREFULLY. 4. If you have abdominal incision, do not cover it unless dressing is necessary because of drainage. OK to shower, but avoid bath. Leave steri-strips until they fall off. If they are still on one week after surgery, you may remove them. 5. If you had vaginal surgery or vaginal repair, Dr. Mason may instruct you to take SITZ bath. 6. Yellow, blood tinged odorous vaginal discharge is usually normal after hysterectomy or vaginal surgeries. 7. No sexual intercourse, tampons, or douches until you are completely released from the post-operative care. 8. Avoid constipation by eating right and maybe using some Metamucil or Milk of Magnesia. 9. All prescription refills are given during the working hours. Please do no wait till it runs out. Call the clinic at [phone] before your medication runs out. The clinic will get in touch with your doctor to prescribe medications if necessary. 10. Please remain within 40 mile radius from our hospital because emergencies do happen now and then during the post-operative period. 11. If you have stairs at home, take one step at a time slowly and minimize the number of trips. It helps to stay in one floor for the next few days. No lifting except what you can lift by one hand until you are released from the post-operative care. 12. Driving is discouraged until you are well healed. It may be 3-4 weeks before you feel strong enough to drive. You should be able to turn and look through the rear window without pain and you should be able to push the brake pedal very hard without pain before you drive. No fast rules, but SAFETY should be your primary concern. DO NOT drive if you are on sedating medications such as narcotics. 13. Call the clinic (during working hours) to make urgent appointment or go to the Emergency room, if any of the following occurs: i. Vaginal bleeding becomes heavy, more than a period. ii. Incision becomes red and sore, or drains pus. iii. Your temperature is over 100.4 or you have chill. iv. IV site becomes red and swollen (a little ``knot?? is usually OK) v. Persistent nausea and vomiting vi. Persistent constipation or diarrhea vii. Rash or allergic reaction to medications. Discharge Attestations WEB MARKETING STRATEGIST Time Spent in Discharge Care*: greater than 30 min Coding Level of Care Code Acute Light Adjuster for Chg Fwd Diagnoses Pre-eclampsia superimposed on chronic hypertension O11.9 Status post delivery Z98.891 Diabetes mellitus E11.9 Noncompliance Z91.19 Hypertension I10 Hypertension type: unspecified
[2022-02-26 14:45] VITALS: BP 122/77; PULSE 96; RESP 17; TEMP 36.8
[2022-03-01 07:42] LABS: Alprazolam, Urine Level negative; Flurazepam Metabolite negative; Lorazepam, Urine Level negative; Nordiazepam, Urine Level negative; Oxazepam, Urine Level negative; Temazepam, Urine Level negative
== END 2022-02-26 15:00 | disposition home or self-care (01) | DRG 786 ==
LOC: OPOB 16:46 → OBGYN 16:46
PROVIDERS: Student in an Organized Health Care Education/Training Program; Admitting Provider Obstetrics & Gynecology; PCP Nurse Practitioner Family; Visit Provider Obstetrics & Gynecology
PROC: 10D00Z1 Extraction of Products of Conception, Low, Open Approach (ICD-10-PCS; CPT 59514; principal; 2022-02-23 16:15)
DX: O24.12 Pre-existing type 2 diabetes mellitus, in childbirth (principal); O45.92 Premature separation of placenta, unspecified, second trimester; I69.951 Hemiplegia and hemiparesis following unspecified cerebrovascular disease affecting right dominant side; O11.4 Pre-existing hypertension with pre-eclampsia, complicating childbirth; O99.334 Smoking (tobacco) complicating childbirth; F17.210 Nicotine dependence, cigarettes, uncomplicated; O76 Abnormality in fetal heart rate and rhythm complicating labor and delivery; Z3A.24 24 weeks gestation of pregnancy; Z37.0 Single live birth; O75.89 Other specified complications of labor and delivery; Z79.82 Long term (current) use of aspirin; Z79.84 Long term (current) use of oral hypoglycemic drugs
CPT/HCPCS: 36415; 36416; 51702; 59409; 74018; 76815; 80053; 80306; 80326; 81001; 82570; 82962; 83735; 84156; 84550; 85025; 88307; 93005; 96372; 99211; J0360; J0702; J1815; J1885; J2405; J3010; J3475; J3490; J7030

== ENCOUNTER 2023-07-26 10:29 | Outpatient (CLI) | payer MEDICAID, SELFPAY ==
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
== END 2023-07-26 10:30 | disposition home or self-care (01) ==
PROVIDERS: PCP Nurse Practitioner Family; Visit Provider Nurse Practitioner Family
DX: I10 Essential (primary) hypertension (principal); R55 Syncope and collapse; I07.1 Rheumatic tricuspid insufficiency
CPT/HCPCS: 93306

== ENCOUNTER → 2023-09-05 09:12 | Outpatient (BNVA) | payer MEDICAID, SELFPAY | PROVIDERS: PCP Nurse Practitioner Family; Visit Provider Nurse Practitioner Psychiatric/Mental Health | DX: Z79.899 Other long term (current) drug therapy (principal); Z63.4 Disappearance and death of family member; F33.1 Major depressive disorder, recurrent, moderate; F15.21 Other stimulant dependence, in remission; F11.21 Opioid dependence, in remission; R45.88 Nonsuicidal self-harm; F17.210 Nicotine dependence, cigarettes, uncomplicated | CPT/HCPCS: 80053; 80061; 83036 ==

== ENCOUNTER → 2024-02-04 13:00 | Outpatient (BNVA) | payer MEDICAID, SELFPAY | PROVIDERS: PCP Nurse Practitioner Family; Visit Provider Dermatology | DX: L70.8 Other acne (principal); L85.8 Other specified epidermal thickening | CPT/HCPCS: 99214 ==

== ENCOUNTER → 2024-04-03 10:07 | Outpatient (BNVA) | payer MEDICAID, SELFPAY | PROVIDERS: PCP Nurse Practitioner Family; Visit Provider Nurse Practitioner Family | DX: L70.8 Other acne (principal); L85.8 Other specified epidermal thickening | CPT/HCPCS: 99214 ==

== ENCOUNTER 2024-05-13 19:00 | Emergency (ER) | payer MEDICAID, SELFPAY ==
[2024-05-13 19:06] VITALS: BP 161/112; PULSE 92; RESP 16; TEMP 36.8; O2SAT 99
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
[2024-05-13] MEDS: acetaminophen 500 mg Tablet 1000 MG PO (20:48)
--- NOTE | 2024-05-13 20:54 | PC.NURSE ---
pt requesting mother phone number to be used as her primary number as her phone is broke and case management is going to contact her for ENT referral. primary phone number changed by registration.
[2024-05-13 20:55] VITALS: BP 161/112; PULSE 92; RESP 16; TEMP 36.8; O2SAT 99
--- NOTE | 2024-05-14 11:22 | DCPLANNER ---
Referral sent to ENT Dr. Ortez
== END 2024-05-13 20:56 | disposition home or self-care (01) ==
PROVIDERS: Emergency Provider Emergency Medicine; PCP Nurse Practitioner Family
DX: S02.2XXA Fracture of nasal bones, initial encounter for closed fracture (principal); S02.81XA Fracture of other specified skull and facial bones, right side, initial encounter for closed fracture; Z79.82 Long term (current) use of aspirin; Z79.84 Long term (current) use of oral hypoglycemic drugs; Z72.0 Tobacco use; I10 Essential (primary) hypertension; Z86.73 Personal history of transient ischemic attack (TIA), and cerebral infarction without residual deficits; E11.9 Type 2 diabetes mellitus without complications; Y04.2XXA Assault by strike against or bumped into by another person, initial encounter; Y07.031 Male partner, former, perpetrator of maltreatment and neglect
CPT/HCPCS: 70450; 70486; 99284

== ENCOUNTER 2024-09-01 13:24 | Outpatient (CLI) | payer MEDICAID, SELFPAY ==
--- NOTE | 2024-09-01 13:37 | XR_ITS ---
WS: [id number] KUB, AP view, 09/01/2024 Clinical Data: LUMBAR BACK PAIN Comparison: KUB, 02/23/2022 Findings: No abnormal intraabdominal masses or calcifications are seen. There is no dilatated small bowel or ev idence of obstruction. There is a moderate amount of fecal material in the transverse colon. XR/XR KUB [id number] Impression: Negative KUB.
--- NOTE | 2024-09-01 13:37 | XR_ITS ---
WS: [id number] Lumbar spine with flexion, extension, and neutral lateral, 09/01/2024 Clinical Data: LUMBAR BACK PAIN Comparison: None. Findings: No compression fractures or subluxation is seen. No disc space narrowing is seen. No instability is seen. There are minimal osteophytes at L4-L5. XR/XR lumbar spine f/e only [id number] Impression: 1. Minimal osteophytes at L4-L5. 2. No instability on flexion or extension.
== END 2024-09-01 13:25 | disposition home or self-care (01) ==
LOC: RAD 13:34
PROVIDERS: PCP Nurse Practitioner Family; Visit Provider Nurse Practitioner Family
DX: M25.78 Osteophyte, vertebrae (principal); K59.00 Constipation, unspecified
CPT/HCPCS: 72120; 74018

== ENCOUNTER 2024-09-10 12:50 | Inpatient (IN) | payer MEDICAID, SELFPAY ==
[2024-09-10] VITALS (8 sets, daily range): BP systolic 126–185; BP diastolic 81–122; PULSE 69–93; RESP 16–18; TEMP 36.6–36.9; O2SAT 92–100; BMI 43.6
--- NOTE | 2024-09-10 12:55 | ED.C_ITS ---
HPI - Psych 2 General: Chief Complaint: Psychiatric Symptoms Stated Complaint: SI Time Seen by Provider: 09/10/24 12:51 Source: patient and EMS Mode of arrival: EMS Limitations: no limitations History of Present Illness: 29-year-old female who is here from [facility] for suicidal ideations. She states she has been suicidal last 2 weeks states she did attempt to kill herself by overdosing on Benadryl 1 week ago still been having suicidal thoughts since then. She denies any worse improving factors does have a history of depression Associated symptoms: Reports depression and suicidal ideation Related Data Home Medications Medication Instructions Recorded Confirmed aspirin 81 mg capsule 81 mg PO DAILY 02/23/22 09/10/24 omeprazole 20 mg capsule,delayed 20 mg PO DAILY 07/11/23 09/10/24 release rosuvastatin 40 mg tablet 40 mg PO DAILY 07/11/23 09/10/24 lisinopril 40 mg tablet 40 mg PO DAILY 09/10/24 09/10/24 topiramate 50 mg tablet 50 mg PO BID 09/10/24 09/10/24 Previous Rx's Medication Instructions Recorded escitalopram oxalate 20 mg tablet 20 mg PO .morning #30 tabs 05/09/24 (Lexapro) hydroxyzine pamoate 25 mg capsule 25 mg PO TID PRN anxiety/sleep #90 05/09/24 caps Allergies Allergy/AdvReac Type Severity Reaction Status Date / Time quetiapine [From Seroquel] Allergy Intermediate ALGY-Rash Verified 08/13/24 12:46 Review of Systems 2 Const: Denies: fever(s), chills, body aches or change in appetite ENMT: Denies: throat pain or dental pain Card: Denies: chest pain Resp: Denies: dyspnea GI: Denies: abdominal pain, nausea, vomiting or diarrhea Musc: Denies: neck pain or back pain Skin/Breast: Denies: rash Neuro: Denies: headache(s) Psych: Reports: depression and suicidal ideation PFSH ED 2 PFSH: Medical History Cigarette nicotine dependence Non-suicidal self-harm last non suicidal self harm via cutting November 2020 Opiate dependence In sustained remission, last use April 2023 Bereavement loss of six month old son in August 2022 Other stimulant dependence, in remission Methamphetamines, sobriety date 05/09/21, in sustained remission Chronic post-traumatic stress disorder Major depressive disorder, recurrent episode, moderate with anxious distress Psychiatric care Obesity Syncope Hypertension History of CVA (cerebrovascular accident) (~2019) Was unresponsive for 9 days. Minimal deficits. Right sided weakness. Some verbal decline. Diabetes mellitus managed with metformin bid and diet by PCP. Last A1c: 09/2021 6.1% Surgical History No pertinent past surgical history Family History Mother Hypertension Father Hypertension Grandmother Diabetes maternal Denies family history of Colon cancer Ovarian cancer Heart disease Hypercholesteremia Breast cancer Uterine cancer Thyroid disease Stroke Social History Smoking and tobacco/nicotine status: current every day tobacco/nicotine user Substance/Drug Use: former Physical Exam 2 Const: COMMON NORMALS: no acute distress, patient oriented x3 and healthy appearing HENMT: COMMON NORMALS: normocephalic and atraumatic HEAD & SCALP: n ormocephalic and atraumatic Neck/C-Spine: COMMON NORMALS: full ROM and supple Chest: COMMONS NORMALS: normal inspection of the chest Resp: COMMON NORMALS: normal respiratory effort Cardio: COMMON NORMALS: regular rate RATE: regular rate Extremity: COMMON NORMALS: normal to inspection and full ROM Neuro: COMMON NORMALS: patient oriented x3, moves all extremities and no focal motor deficits Psych: COMMON NORMALS: mental status grossly normal, Normal thought process present and cooperative MOOD & AFFECT: Yes depressed mood THOUGHT PROCESS: Normal thought process present THOUGHT CONTENT: Yes Suicidality present Skin: COMMON NORMALS: no rashes or lesions noted and no wounds GENERAL SKIN EXAM: no rashes or lesions noted Course 2 Vital Signs: Vital signs: Vital Signs Temperature 98.4 F 09/10/24 12:51 Pulse Rate 86 09/10/24 12:51 Respiratory Rate 16 09/10/24 12:51 Blood Pressure 185/122 09/10/24 12:51 Pulse Oximetry 96 09/10/24 12:51 Oxygen Delivery Me thod Room Air 09/10/24 12:51 MDM - Psych Medical Decision Making Patient presents here with suicidal ideation she is placed on a 96-hour hold I spoke to psychiatrist patient's medically cleared will admit Medical Records I reviewed the patient's medical records. Lab Data I reviewed the patient's lab results. 09/10/24 13:21 09/10/24 13:21 Laboratory Results WBC 10.42 10^3/uL (3.29-11.43) 09/10/24 13:21 RBC 4.15 10^6/uL (3.85-5.65) 09/10/24 13:21 Hgb 12.90 g/dL (11.27-16.99) 09/10/24 13:21 Hct 38.1 % (36-47) 09/10/24 13:21 MCV 91.8 fl (85-98) 09/10/24 13:21 MCH 31.1 pg (27-33) 09/10/24 13:21 MCHC 33.9 g/dL (30-55) 09/10/24 13:21 RDW 13.3 % (12.1-15.1) 09/10/24 13:21 Plt Count 290 10^3/cmm (157-399) 09/10/24 13:21 MPV 9.3 fL (7.4-10.4) 09/10/24 13:21 Neut % (Auto) 68.1 % 09/10/24 13:21 Lymph % (Auto) 23.2 % 09/10/24 13:21 [place] % (Auto) 5.6 % 09/10/24 13:21 Eos % (Auto) 1.2 % 09/10/24 13:21 Baso % (Auto) 0.9 % 09/10/24 13:21 Neut # (Auto) 7.10 10^3/uL (1.8-7.7) 09/10/24 13:21 Lymph # (Auto) 2.4 10^3/uL (0.8-4.8) 09/10/24 13:21 [place] # (Auto) 0.6 10^3/uL (0.2-0.9) 09/10/24 13:21 Eos # (Auto) 0.1 10^3/uL (0.0-0.8) 09/10/24 13:21 Baso # (Auto) 0.1 10^3/uL (0.0-0.1) 09/10/24 13:21 Nucleated RBC % (auto) 0 % 09/10/24 13:21 Nucleated RBCs # 0.0 /100WBC 09/10/24 13:21 HCG, Qual Negative (Negative) 09/10/24 13:08 No radiology studies performed this visit Discharge Plan Discharge Patient Disposition: Admitted As Inpatient Clinical Impression: Suicidal ideation Condition: Stable Coding Level of Care Code ED Care Navigator for Rita Mccartney
[2024-09-10 13:22] LABS: HCG Qualitative Urine. Negative (Negative)
[2024-09-10 13:31] LABS: Basophils # 0.1 10^3/uL (0.0-0.1); Basophils % 0.9 %; Eosinophils # 0.1 10^3/uL (0.0-0.8); Eosinophils % 1.2 %; Hematocrit 38.1 % (36-47); Lymphocytes # 2.4 10^3/uL (0.8-4.8); Lymphocytes % 23.2 %; Mean Corpuscular HGB Conc 33.9 g/dL (30-55); Mean Corpuscular Hemoglobin 31.1 pg (27-33); Mean Corpuscular Volume 91.8 fl (85-98); Mean Platelet Volume 9.3 fL (7.4-10.4); Monocytes # 0.6 10^3/uL (0.2-0.9); Monocytes % 5.6 %; Neutrophils % 68.1 %; Nucleated Red Blood Cells % 0 %; Platelet Count 290 10^3/cmm (157-399); Red Blood Count 4.15 10^6/uL (3.85-5.65); Red Cell Distribution Width 13.3 % (12.1-15.1); White Blood Count 10.42 10^3/uL (3.29-11.43)
[2024-09-10 13:46] LABS: Amphetamines Screen Urine Negative (Negative); Barbiturates Screen Urine Negative (Negative); Benzodiazepines Screen Urine Negative (Negative); Cocaine Screen Urine Negative (Negative); Opiate Screen Urine Negative (Negative); PCP Screen Urine Negative (Negative); THC Screen Urine Negative (Negative)
[2024-09-10 13:49] LABS: Alanine Aminotransferase 9 U/L (0-33); Albumin Level 3.9 g/dL (3.5-5.2); Alkaline Phosphatase 83 U/L (35-105); Anion Gap 17.9 (5-19); Aspartate Amino Transferase 9 U/L (0-32); Blood Urea Nitrogen 17 mg/dL (6-20); Calcium 8.6 mg/dL (8.5-10.5); Carbon Dioxide 18 mmol/L (22-29); Chloride 105 mmol/L (98-107); Creatinine Clr Calc Pharmacy 140.0845; Globulin 2.8 g/dL (1.3-4.6); Glucose 144 mg/dL (65-115); Osmolality Calculated 288 mOsm/kg (285-295); Potassium 3.9 mmol/L (3.5-5.1); Sodium 137 mmol/L (136-145); Total Bilirubin 0.4 mg/dL (0.15-1.2); Total Protein 6.7 g/dL (6.6-8.7)
[2024-09-10 13:50] LABS: Acetaminophen < 5.0 ug/mL (10-30); Alcohol Level < 10 mg/dL (0-10); Salicylate < 0.3 mg/dL (3-10)
--- NOTE | 2024-09-10 13:50 | PC.NURSE ---
96 hour hold rights read to patient. Hood from [employer] present during reading of rights. Patient verbalized understandings. Patient stated she had a headache. This nurse made primary nurse Marlena aware.
[2024-09-10] MEDS: LORazepam 2 mg Tablet PO (16:03)
[2024-09-11 06:00] VITALS: BP 128/72; PULSE 74; RESP 18; TEMP 36.7; O2SAT 98
[2024-09-11] MEDS: flu vacc pf 24-25 (6 mos+) SYRINGE 45 MCG IM (09:40)
[2024-09-11] MEDS: lisinopril 20 mg Tablet 40 MG PO (09:40)
[2024-09-11] MEDS: escitalopram 10 mg Tablet 20 MG PO (09:40)
[2024-09-11] MEDS: topiramate 25 mg Tablet 50 MG PO ×2 (09:40→18:01)
[2024-09-11] MEDS: aspirin 81 mg EC Tablet PO (09:40)
[2024-09-11] MEDS: pantoprazole DR 40 mg Tablet PO (09:40)
[2024-09-11] MEDS: atorvastatin 40 mg Tablet 80 MG PO (09:40)
[2024-09-11] MEDS: hyDROXYzine 25 mg Capsule 50 MG PO (10:03)
[2024-09-11] MEDS: nicotine 2 mg Gum BUCCAL ×2 (10:03→15:05)
--- NOTE | 2024-09-11 10:16 | PC.NURSE ---
MORNING ASSESSMENT During morning assessment, patient denies SI, HI, AVH. Patient rates anxiety 5/10. Patient willing to try vistaril for anxiety. Administered vistaril 50mg PO to patient. Patient denies SI, saying not right now. Patient agreed to notify staff if she developed suicidal feelings. All questions answered. Administered flu vaccine with no issue. Patient provided with shower supplies.
[2024-09-11 14:00] VITALS: BP 114/75; PULSE 69; RESP 15; TEMP 36.7; O2SAT 98
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
[2024-09-11 19:37] VITALS: BP 100/64; PULSE 73; RESP 16; TEMP 36.4; O2SAT 97
[2024-09-12] MEDS: hyDROXYzine 25 mg Capsule 50 MG PO ×2 (00:39→21:54)
[2024-09-12] MEDS: trazodone 50 mg Tablet PO ×2 (00:39→21:54)
[2024-09-12 06:00] VITALS: BP 125/64; PULSE 66; RESP 16; O2SAT 97
[2024-09-12] MEDS: escitalopram 10 mg Tablet 20 MG PO (08:20)
[2024-09-12] MEDS: atorvastatin 40 mg Tablet 80 MG PO (08:20)
[2024-09-12] MEDS: topiramate 25 mg Tablet 50 MG PO ×2 (08:20→17:20)
[2024-09-12] MEDS: lisinopril 20 mg Tablet 40 MG PO (08:20)
[2024-09-12] MEDS: aspirin 81 mg EC Tablet PO (08:20)
[2024-09-12] MEDS: pantoprazole DR 40 mg Tablet PO (08:20)
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
[2024-09-12] MEDS: PARoxetine 20 mg Tablet PO (12:10)
[2024-09-12] MEDS: nicotine 2 mg Gum BUCCAL (13:23)
[2024-09-12] MEDS: OLANZapine 5 mg ODT PO (13:57)
[2024-09-12 14:00] VITALS: BP 129/78; PULSE 83; RESP 18; TEMP 36.8; O2SAT 96
[2024-09-12 20:15] VITALS: BP 103/66; PULSE 77; RESP 16; TEMP 36.7; O2SAT 97
[2024-09-13 06:30] VITALS: BP 114/69; PULSE 70; RESP 16; O2SAT 96
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
[2024-09-13] MEDS: lisinopril 20 mg Tablet 40 MG PO (10:05)
[2024-09-13] MEDS: atorvastatin 40 mg Tablet 80 MG PO (10:05)
[2024-09-13] MEDS: topiramate 25 mg Tablet 50 MG PO ×2 (10:05→17:19)
[2024-09-13] MEDS: aspirin 81 mg EC Tablet PO (10:05)
[2024-09-13] MEDS: PARoxetine 20 mg Tablet PO (10:05)
[2024-09-13] MEDS: pantoprazole DR 40 mg Tablet PO (10:06)
[2024-09-13] MEDS: hyDROXYzine 25 mg Capsule 50 MG PO ×2 (10:57→16:04)
[2024-09-13 14:00] VITALS: BP 106/69; PULSE 79; RESP 16; O2SAT 97
[2024-09-13] MEDS: ARIPiprazole 10 mg Tablet 5 MG PO (16:05)
[2024-09-13] MEDS: OLANZapine 5 mg ODT PO (19:41)
[2024-09-13] MEDS: ibuprofen 600 mg Tablet PO (19:41)
[2024-09-13] MEDS: trazodone 50 mg Tablet PO (19:42)
[2024-09-13 20:28] VITALS: BP 109/73; PULSE 110; RESP 18; TEMP 36.7; O2SAT 96
[2024-09-14 06:00] VITALS: BP 122/80; PULSE 86; RESP 16; O2SAT 98
[2024-09-14] MEDS: PARoxetine 20 mg Tablet PO (09:40)
[2024-09-14] MEDS: ARIPiprazole 10 mg Tablet 5 MG PO (09:40)
[2024-09-14] MEDS: atorvastatin 40 mg Tablet 80 MG PO (09:40)
[2024-09-14] MEDS: pantoprazole DR 40 mg Tablet PO (09:40)
[2024-09-14] MEDS: lisinopril 20 mg Tablet 40 MG PO (09:41)
[2024-09-14] MEDS: aspirin 81 mg EC Tablet PO (09:41)
[2024-09-14] MEDS: topiramate 25 mg Tablet 50 MG PO ×2 (09:41→17:27)
--- NOTE | 2024-09-14 12:06 | P.NPUPN_ITS ---
Subjective NPU 2 Subjective: Patient presented today reporting that she is feeling better with the medication. She reports being hopeful that she can discharge soon. We discussed her working with the social work team on discharge planning and aftercare appointments tomorrow. We discussed the likelihood of discharge in the next few days and she denied any side effects to the medications. Mental Status Exam 2 MSE Comments: This is an obese versus morbidly obese, white female, in hospital scrubs with limited grooming, and adequate eye contact. No abnormal movements except for psychomotor retardation. Cooperative with exam in mild distress. Speech was decreased rate and volume. Mood described as ; affect congruent and subdued. Thought process, organized. Thought content: patient denied any suicidal or homicidal ideation, there were no delusions reported or noted, patient denied any auditory or visual hallucinations. Attention, concentration, and memory appear intact but were not formally tested. He is alert and oriented times three. Insight and judgment are fair. Impulse control is impaired. Vitals/I&O/Wt Last Vital Signs Temp 98.0 F 09/13/24 20:28 Pulse 86 09/14/24 06:00 Resp 16 09/14/24 06:00 BP 122/80 09/14/24 06:00 Pulse Ox 98 09/14/24 06:00 O2 Del Method Room Air 09/13/24 14:00 Weight last 48 hrs Weight 100.244 kg Data NPU 09/10/24 13:21 09/10/24 13:21 A&P Assessment and plan (1) Major depressive disorder, recurrent episode, moderate with anxious distress: (2) Chronic post-traumatic stress disorder: (3) Other stimulant dependence, in remission: (4) Bereavement: (5) Suicidal ideation: Plan This is a 29-year-old white female with a history of mental health issues who presents off of medication and with recent losses since last hospitalization open 2 restarting medication. 1. Started Paxil 20 mg p.o. daily. Initiated Abilify 5 mg p.o. daily. 2. Continue every 15 minute checks for safety. 3. Encourage individual, group and milieu therapy. 4. Encourage sober living treatment after discharge at the highest level care to which she is willing to make. 5. Get collateral information. Involuntary Hold Information 2 96 Hour Hold: 96 Hour Involuntary Admission: Yes 96 Hour Hold Ending Date: 12/10/24 96 Hour Hold Ending Time: 13:08 Other Hold: Hold End Date: 09/16/24 Attestations NPU 2 Medical Necessity Statement*: Inpatient hospitalization is medically necessary and the clinically appropriate intervention, at this time. We will monitor/initiate medications and make changes as indicated. Likely length of stay is 1-3 days. Coding Level of Care Code Acute Code for Chg Fwd Diagnoses Major depressive disorder, recurrent episode, moderate with anxious distress F33.1 Chronic post-traumatic stress disorder F43.12 Other stimulant dependence, in remission F15.21 Bereavement Z63.4 Suicidal ideation R45.851
[2024-09-14] MEDS: hyDROXYzine 25 mg Capsule 50 MG PO ×2 (12:35→20:43)
[2024-09-14 14:00] VITALS: BP 118/72; PULSE 118; RESP 16; TEMP 37; O2SAT 95
[2024-09-14] MEDS: OLANZapine 5 mg ODT PO (17:27)
[2024-09-14 19:50] VITALS: BP 131/89; PULSE 109; RESP 18; TEMP 36.5; O2SAT 96
[2024-09-14] MEDS: trazodone 50 mg Tablet PO (20:43)
[2024-09-14] MEDS: acetaminophen 325 mg Tablet 650 MG PO (20:43)
[2024-09-14] MEDS: nicotine 2 mg Gum BUCCAL (20:43)
[2024-09-15 06:15] VITALS: BP 106/70; PULSE 78; RESP 16; O2SAT 98
[2024-09-15] MEDS: ARIPiprazole 10 mg Tablet 5 MG PO (08:30)
[2024-09-15] MEDS: aspirin 81 mg EC Tablet PO (08:30)
[2024-09-15] MEDS: PARoxetine 20 mg Tablet PO (08:30)
[2024-09-15] MEDS: atorvastatin 40 mg Tablet 80 MG PO (08:30)
[2024-09-15] MEDS: pantoprazole DR 40 mg Tablet PO (08:30)
[2024-09-15] MEDS: topiramate 25 mg Tablet 50 MG PO ×2 (08:30→20:43)
[2024-09-15] MEDS: lisinopril 20 mg Tablet 40 MG PO (08:30)
[2024-09-15] MEDS: hyDROXYzine 25 mg Capsule 50 MG PO ×2 (12:07→20:24)
[2024-09-15 14:00] VITALS: BP 139/88; PULSE 134; RESP 17; TEMP 36.8; O2SAT 96
[2024-09-15] MEDS: OLANZapine 5 mg ODT PO ×2 (16:03→22:31)
--- NOTE | 2024-09-15 16:13 | P.NPUPN_ITS ---
Subjective NPU 2 Subjective: Patient presented today reporting that she is doing okay. She is tolerating the medications without any issues and reports a plan to begin working on discharge. She is meeting with the social work team to determine what options are available for her. Otherwise she denied any side effects to medication. Mental Status Exam 2 MSE Comments: This is an obese versus morbidly obese, white female, in hospital scrubs with limited grooming, and adequate eye contact. No abnormal movements except for psychomotor retardation. Cooperative with exam in mild distress. Speech was decreased rate and volume. Mood described as ; affect congruent and subdued. Thought process, organized. Thought content: patient denied any suicidal or homicidal ideation, there were no delusions reported or noted, patient denied any auditory or visual hallucinations. Attention, concentration, and memory appear intact but were not formally tested. He is alert and oriented times three. Insight and judgment are fair. Impulse control is impaired. Vitals/I&O/Wt Last Vital Signs Temp 98.2 F 09/15/24 14:00 Pulse 134 H 09/15/24 14:00 Resp 17 09/15/24 14:00 BP 139/88 09/15/24 14:00 Pulse Ox 96 09/15/24 14:00 O2 Del Method Room Air 09/15/24 14:00 Weight last 48 hrs Weight 100.244 kg Data NPU 09/10/24 13:21 09/10/24 13:21 A&P Assessment and plan (1) Major depressive disorder, recurrent episode, moderate with anxious distress: (2) Chronic post-traumatic stress disorder: (3) Other stimulant dependence, in remission: (4) Bereavement: (5) Suicidal ideation: Plan This is a 29-year-old white female with a history of mental health issues who presents off of medication and with recent losses since last hospitalization open to restarting medication. 1. Started Paxil 20 mg p.o. daily. Initiated Abilify 5 mg p.o. daily. 2. Continue every 15 minute checks for safety. 3. Encourage individual, group and milieu therapy. 4. Encourage sober living treatment after discharge at the highest level care to which she is willing to make. 5. Get collateral information. Involuntary Hold Information 2 96 Hour Hold: 96 Hour Involuntary Admission: Yes 96 Hour Hold Ending Date: 09/16/24 96 Hour Hold Ending Time: 13:08 Other Hold: Hold End Date: 12/10/24 Attestations NPU 2 Medical Necessity Statement*: Inpatient hospitalization is medically necessary and the clinically appropriate intervention, at this time. We will monitor/initiate medications and make changes as indicated. Likely length of stay is 1-3 days. Coding Level of Care Code Acute Code for Chg Fwd Diagnoses Major depressive disorder, recurrent episode, moderate with anxious distress F33.1 Chronic post-traumatic stress disorder F43.12 Other stimulant dependence, in remission F15.21 Bereavement Z63.4 Suicidal ideation R45.851
[2024-09-15] MEDS: nicotine 2 mg Gum BUCCAL (18:42)
[2024-09-15] MEDS: acetaminophen 325 mg Tablet 650 MG PO (20:24)
[2024-09-15] MEDS: trazodone 50 mg Tablet PO (20:24)
[2024-09-15 21:08] VITALS: BP 105/70; PULSE 110; RESP 16; TEMP 37.1; O2SAT 96
[2024-09-16] MEDS: acetaminophen 325 mg Tablet 650 MG PO (02:36)
[2024-09-16 06:00] VITALS: BP 98/61; PULSE 60; RESP 16; TEMP 36.6; O2SAT 97
[2024-09-16] MEDS: PARoxetine 20 mg Tablet PO (09:53)
[2024-09-16] MEDS: aspirin 81 mg EC Tablet PO (09:53)
[2024-09-16] MEDS: atorvastatin 40 mg Tablet 80 MG PO (09:53)
[2024-09-16] MEDS: nicotine 2 mg Gum BUCCAL ×3 (09:53→13:56)
[2024-09-16] MEDS: ARIPiprazole 10 mg Tablet 5 MG PO (09:54)
[2024-09-16] MEDS: topiramate 25 mg Tablet 50 MG PO (09:54)
[2024-09-16] MEDS: pantoprazole DR 40 mg Tablet PO (09:54)
[2024-09-16] MEDS: lisinopril 20 mg Tablet 40 MG PO (09:54)
[2024-09-16] MEDS: hyDROXYzine 25 mg Capsule 50 MG PO ×2 (09:59→13:29)
[2024-09-16] MEDS: OLANZapine 5 mg ODT PO (11:43)
--- NOTE | 2024-09-16 13:41 | P.NPUDS_ITS ---
Diagnoses at Discharge Discharge Diagnosis (1) Major depressive disorder, recurrent episode, moderate with anxious distress: Status: Acute (2) Chronic post-traumatic stress disorder: Status: Chronic (3) Other stimulant dependence, in remission: Status: Chronic Permanent problem details: Methamphetamines, sobriety date 05/09/21, in sustained remission (4) Bereavement: Status: Acute Permanent problem details: loss of six month old son in August 2022 (5) Suicidal ideation: Status: Acute Reason for Visit Reason for Visit: SI Involuntary Hold Information 96 Hour Hold: 96 Hour Involuntary Admission: Yes 96 Hour Hold Ending Date: 09/16/24 96 Hour Hold Ending Time: 13:08 Other Hold: Hold End Date: 09/16/24 Mental Status Exam MSE Comments: This is an obese versus morbidly obese, white female, in hospital scrubs with limited grooming, and adequate eye contact. No abnormal movements except for psychomotor retardation. Cooperative with exam in mild distress. Speech was decreased rate and volume. Mood described as ; affect congruent and subdued. Thought process, organized. Thought content: patient denied any suicidal or homicidal ideation, there were no delusions reported or noted, patient denied any auditory or visual hallucinations. Attention, concentration, and memory appear intact but were not formally tested. He is alert and oriented times three. Insight and judgment are fair. Impulse control is impaired. Discharge Data Studies Completed and Pending: Laboratory Results WBC 10.42 10^3/uL (3. 29-11.43) 09/10/24 13:21 RBC 4.15 10^6/uL (3.8 5-5.65) 09/10/24 13:21 Hgb 12.90 g/dL (11.27 -16.99) 09/10/24 13:21 Hct 38.1 % (36-47) 09/10/24 13:21 MCV 91.8 fl (85-98) 09/10/24 13:21 MCH 31.1 pg (27-33) 09/10/24 13:21 MCHC 33.9 g/dL (30-55) 09/10/24 13:21 RDW 13.3 % (12.1-15.1 ) 09/10/24 13:21 Plt Count 290 10^3/cmm (157 -399) 09/10/24 13:21 MPV 9.3 fL (7.4-10.4) 09/10/24 13:21 Neut % (Auto) 68.1 % 09/10/24 13:21 Lymph % (Auto) 23.2 % 09/10/24 13:21 Frontier % (Auto) 5.6 % 09/10/24 13:21 Eos % (Auto) 1.2 % 09/10/24 13:21 Baso % (Auto) 0.9 % 09/10/24 13:21 Neut # (Auto) 7.10 10^3/uL (1.8 -7.7) 09/10/24 13:21 Lymph # (Auto) 2.4 10^3/uL (0.8- 4.8) 09/10/24 13:21 Frontier # (Auto) 0.6 10^3/uL (0.2- 0.9) 09/10/24 13:21 Eos # (Auto) 0.1 10^3/uL (0.0- 0.8) 09/10/24 13:21 Baso # (Auto) 0.1 10^3/uL (0.0- 0.1) 09/10/24 13:21 Nucleated RBC % (a uto) 0 % 09/10/24 13:21 Nucleated RBCs # 0.0 /100WBC 09/10/24 13:21 Sodium 137 mmol/L (136-1 45) 09/10/24 13:21 Potassium 3.9 mmol/L (3.5-5 .1) 09/10/24 13:21 Chloride 105 mmol/L (98-10 7) 09/10/24 13:21 Carbon Dioxide 18 mmol/L (22-29) L 09/10/24 13:21 Anion Gap 17.9 (5-19) 09/10/24 13:21 BUN 17 mg/dL (6-20) 09/10/24 13:21 Creatinine 0.9 mg/dL (0.5-0. 9) 09/10/24 13:21 GFR Calculation 73.0 mL/min (90-1 30) L 09/10/24 13:21 Glucose 144 mg/dL (65-115 ) H 09/10/24 13:21 Calculated Osmolal ity 288 mOsm/kg (285- 295) 09/10/24 13:21 Calcium 8.6 mg/dL (8.5-10 .5) 09/10/24 13:21 Total Bilirubin 0.4 mg/dL (0.15-1 .2) 09/10/24 13:21 AST 9 U/L (0-32) 09/10/24 13:21 ALT 9 U/L (0-33) 09/10/24 13:21 Alkaline Phosphata se 83 U/L (35-105) 09/10/24 13:21 Total Protein 6.7 g/dL (6.6-8.7 ) 09/10/24 13:21 Albumin 3.9 g/dL (3.5-5.2 ) 09/10/24 13:21 Globulin 2.8 g/dL (1.3-4.6 ) 09/10/24 13:21 HCG, Qual Negative (Negati ve) 09/10/24 13:08 Salicylates < 0.3 mg/dL (3-10 ) L 09/10/24 13:21 Urine Opiates Scre en Negative ng/mL (N egative) 09/10/24 13:03 Acetaminophen < 5.0 ug/mL (10-3 0) L 09/10/24 13:21 Ur Barbiturates Sc reen Negative ng/mL (N egative) 09/10/24 13:03 Ur Phencyclidine S crn Negative ng/mL (N egative) 09/10/24 13:03 Ur Amphetamines Sc reen Negative ng/mL (N egative) 09/10/24 13:03 U Benzodiazepines Scrn Negative ng/mL (N egative) 09/10/24 13:03 Urine Cocaine Scre en Negative ng/mL (N egative) 09/10/24 13:03 U Marijuana (THC) Screen Negative ng/mL (N egative) 09/10/24 13:03 Ethyl Alcohol < 10 mg/dL (0-10) 09/10/24 13:21 Vitals: Last Vital Signs Temp 97.8 F 09/16/24 06:00 Pulse 60 09/16/24 06:00 Resp 16 09/16/24 06:00 BP 98/61 09/16/24 06:00 Pulse Ox 97 09/16/24 06:00 O2 Del Method Room Air 09/16/24 06:00 Discharge Plan Discharge Patient Disposition: Home Condition: Stable Prescriptions: New aripiprazole 5 mg tablet 5 mg PO DAILY 30 Days Qty: 30 1RF trazodone 50 mg Tablet 50 mg PO BEDTIME PRN (Reason: Sleep) 30 Days Qty: 30 1RF paroxetine HCl 20 mg Tablet 20 mg PO DAILY 30 Days Qty: 30 1RF hydroxyzine pamoate 25 mg Capsule 50 mg PO Q6H PRN (Reason: Anxiety) 30 Days Qty: 120 1RF Continued aspirin 81 mg Capsule 81 mg PO DAILY omeprazole 20 mg capsule,delayed release(DR/EC) 20 mg PO DAILY 30 Days Qty: 30 1RF lisinopril 40 mg tablet 40 mg PO DAILY 30 Days Qty: 30 1RF rosuvastatin 40 mg tablet 40 mg PO DAILY 30 Days Qty: 30 1RF topiramate 50 mg tablet 50 mg PO BID 30 Days Qty: 60 1RF Discontinued hydroxyzine pamoate 25 mg capsule 25 mg PO TID PRN (Reason: anxiety/sleep) Qty: 90 3RF Rx Instructions: May take one capsule three times per day as needed for anxiety/sleep escitalopram oxalate [Lexapro] 20 mg tablet 20 mg PO DAILY Rx Instructions: Take one tablet every morning Discharge Orders: Discharge Order (Routine); Ordered 09/16/24 Ordered By: Maximiliano Scott Referrals: Josue Joseph LPC [Therapist] - 09/24/24 12:00 pm Kaylin Campbell PMHNP [Staff Physician] - 09/29/24 1:30 pm Margarita Ward FNP [Primary Care Provider] - Discharge Diet: Regular Discharge Activity: Resume usual activity Patient Instructions: Opioid Safety Discharge Attestations NPU Time Spent in Discharge Care*: less than 30 min Specific Discharge Activities: Specific discharge activities: educating patient, discussing with case management assistant/social workers/dc planners, documenting/other paperwork and evaluating patient/reviewing data Coding Level of Care Code Acute Code for Chg Fwd Diagnoses Major depressive disorder, recurrent episode, moderate with anxious distress F33.1 Chronic post-traumatic stress disorder F43.12 Other stimulant dependence, in remission F15.21 Bereavement Z63.4 Suicidal ideation R45.851
[2024-09-16 14:32] VITALS: BP 98/61; PULSE 60; RESP 16; TEMP 36.6; O2SAT 98
== END 2024-09-16 14:49 | disposition home or self-care (01) | DRG 885 ==
LOC: ER 16:09 → NP 18:40
PROVIDERS: Admitting Provider Psychiatry & Neurology Psychiatry; Emergency Provider Emergency Medicine; PCP Nurse Practitioner Family; Visit Provider Psychiatry & Neurology Psychiatry
DX: F33.1 Major depressive disorder, recurrent, moderate (principal); R45.851 Suicidal ideations; Z68.41 Body mass index [BMI] 40.0-44.9, adult; E79.82 Hereditary xanthinuria; Z91.51 Personal history of suicidal behavior; E66.01 Morbid (severe) obesity due to excess calories; E11.9 Type 2 diabetes mellitus without complications; I10 Essential (primary) hypertension; Z79.82 Long term (current) use of aspirin; F17.210 Nicotine dependence, cigarettes, uncomplicated; F11.21 Opioid dependence, in remission; F15.21 Other stimulant dependence, in remission; Z63.4 Disappearance and death of family member; F43.12 Post-traumatic stress disorder, chronic; F41.9 Anxiety disorder, unspecified; Z86.73 Personal history of transient ischemic attack (TIA), and cerebral infarction without residual deficits; Z82.49 Family history of ischemic heart disease and other diseases of the circulatory system; Z83.3 Family history of diabetes mellitus
CPT/HCPCS: 36415; 80053; 80306; 80307; 81025; 85025; 90471; 90686; 97150; 97165; 99285

== ENCOUNTER 2024-11-18 09:02 | Outpatient (CLI) | payer MEDICAID, SELFPAY ==
--- NOTE | 2024-11-18 09:06 | MM_ITS ---
WS: [id number] DIAGNOSTIC BILATERAL DIGITAL BREAST TOMOSYNTHESIS MAMMOGRAPHY WITH CAD RIGHT breast ultrasound, limited HISTORY: RIGHT axillary mass. COMPARISON: None available. TECHNIQUE: Bilateral craniocaudad, mediolateral oblique, and mediolateral views are submitted with tomosynthesis and SM. Computer aided detection utilized. Breast composition: There are scattered areas of fibroglandular density. Numerous numerous intramammary lymph nodes and bilateral calcifications. Pain marker is placed towards the RIGHT axillary tail. There is asymmetric fat in the RIGHT axilla but no mass or distortion. Several benign-appearing lymph nodes in the axilla. Ultrasound to follow. RIGHT breast ultrasound: No mass or shadowing noted in the RIGHT axilla. There is a benign fatty lymph node. MM/MM diag BI tomosynthesis [id number] IMPRESSION: BI-RADS: 2 - Benign. FOLLOW UP: Age 38 No abnormality in the RIGHT axilla.
== END 2024-11-18 09:03 | disposition home or self-care (01) ==
LOC: RAD 09:02
PROVIDERS: PCP Nurse Practitioner Family; Visit Provider Family Medicine
DX: R59.0 Localized enlarged lymph nodes (principal); R92.321 Mammographic fibroglandular density, right breast; R92.1 Mammographic calcification found on diagnostic imaging of breast
CPT/HCPCS: 76882; 77062; G0279

== ENCOUNTER 2025-04-30 06:41 | Emergency (ER) | payer MEDICAID, SELFPAY ==
--- OUTSIDE RECORDS SUMMARY | 2025-04-30 06:46 | XMS_ITS | Encounter Summary ---
Author Organization [facility] Address [address] [facility] [address] [place] [address] Phone Care Team Providers Care Electrical Mechanic Name Role Phone Randa Ugarte MD Primary Care Provider [phone] Reason for Visit * Reason Comments Med Refill Encounter Details Date Type Department Care Team (Late st Contact Info) Description 09/26/2019 Refill [facility] [address] [place] [address] Wes Chaidez MD [address] [facility] [address] [place] [address] Social History Tobacco Use Types Packs/Day Years Used Date Smoking Tobacco: Former Cigarettes Smokeless Tobacco: Never Alcohol Use Standard Drinks/Week Comments Never 0 (1 standard drink = 0.6 oz pur e alcohol) AUDIT-C Answer Date Recorded Frequency of Alcohol Consumption Never 06/19/2019 Average Number of Drinks Not on file 019 Frequency of Binge Drinking Not on file 06/08 Comments Unknown Sex and Gender Information Value Date Recorded Sex Assigned at Not on file Legal Sex Female 12:17 PM EDT Gender Identity Not on file Sexual Orientation Not on file documented as of this encounter Plan of Treatment Not on file documented as of this encounter Visit Diagnoses Not on filedocumented in this encounter Care Teams Electrical Mechanic Relationship Specialty Start Date End Date Randa Ugarte MD [address] [place], [place] [id number] PCP - General Internal Medicine 11/15/23 documented as of this encounter
--- OUTSIDE RECORDS SUMMARY | 2025-04-30 06:46 | XMS_ITS | Encounter Summary ---
Author Organization [facility] Address [address] [place] [address] Phone Care Team Providers Care Evp Managing Director Name Role Phone Randa Ugarte MD Primary Care Provider [phone] Encounter Details Date Type Department Care Team (Late st Contact Info) Description 07/31/2019 Orders Only [facility] [address] [place] [address] Marlene Chicas, DANIELLE [address] [place] [address] Acute kidney failure, not otherwise specified (HCC) Social History Tobacco Use Types Packs/Day Years [...] on file documented as of this encounter Progress Notes * Wes Chaidez MD - 07/31/2019 11:59 PM CDT Vitamin D deficient. Start on vitamin D 50,000 weekly for 12 weeks then have her primary care follow up. documented in this encounter Plan of Treatment Not on file documented as of this encounter Procedures Procedure Name Priority Date/Time Associated Diagnosis Comments URINE ALBUMIN / CREATININE RATIO Routine 07/28/2019 12:13 PM CDT Acute kidney failure, not otherwise specified (HCC) VITAMIN D 25 HYDROXY Routine 07/28/2019 12:13 PM CDT Acute kidney failure, not otherwise specified (HCC) CBC Routine 07/28/2019 12:13 PM CDT Acute kidney failure, not otherwise specified (HCC) PTH, INTACT Routine 07/28/2019 12:13 PM CDT Acute kidney failure, not otherwise specified (HCC) RENAL FUNCTION PANEL Routine 07/28/2019 12:13 PM CDT Acute kidney failure, not otherwise specified (HCC) documented in this encounter Results * Vit D 25 hydroxy (07/28/2019 12:13 PM CDT) Vitamin D, 25-OH, Total 14 ng/mL Blood specimen (specimen) Venous blood / Unknown 07/28/2019 12:13 PM CDT Narrative Moni Scott MA - 07/29/2019 8:40 AM CDT [facility] # [id number] [address] [place] [address] DIRECTOR: BRY COTTON MD [facility] [phone] us Marlene Chicas WOUND CARE TECHNICIAN LAB BLOOD ORDERABLES Edited Resu lt - Final * PTH, intact (07/28/2019 12:13 PM CDT) Parathyroid Hormone, Intact 104.4 pg/mL Blood specimen (specimen) Venous blood / Unknown 07/28/2019 12:13 PM CDT us Marlene Chicas WOUND CARE TECHNICIAN LAB BLOOD ORDERABLES Final Resul t * Urine albumin / creatinine ratio (07/28/2019 12:13 PM CDT) [facility] Urine Microalbumin 7.5 mg/dL Creatinine, Ur 139 mg/dL Microalb/Creat Ratio 54 30 - 300 mg/g Creat Urine specimen (specimen) Urine specimen obtained by clean catch procedure / Unknown 07/28/2019 12:13 PM CDT Lily Kramer LPN - 07/28/2019 12:39 PM CDT [facility] CLIA# [id number] [address] [place], [place] [address] Director Anusha Wang MD us Marlene Chicas WOUND CARE TECHNICIAN LAB URINE ORDERABLES Final Resul t * CBC (07/28/2019 12:13 PM CDT) [facility] WBC 9.3 K/uL Red Blood Cell Count 3.41 Hemoglobin 10.8 g/dL Hematocrit 34.0 % MCV 99.7 MCH 31.7 MCHC 31.8 RDW 13.8 Platelet Count 404 MPV 9.0 Absolute Neutrophils 5.43 Absolute Lymphocytes 2.63 Absolute Monocytes 0.78 Absolute Eosinophils 0.26 Absolute Basophils 0.06 Neutrophils 59 K/uL Lymphocytes 28 Monocytes 8 Eosinophils 3 Basophils 1 Blood specimen (specimen) Venous blood / Unknown 07/28/2019 12:13 PM CDT Lily KramerGANESH - 07/28/2019 12:39 PM CDT [id number] [address] [place] [address] Director Anusha Wang MD us Marlene Chicas WOUND CARE TECHNICIAN LAB BLOOD ORDERABLES Final Resul t * (ABNORMAL) Renal function panel (07/28/2019 12:13 PM CDT) [facility] Albumin 3.9 3.5 - 5.0 g/dL BUN 14 4 - 21 mg/dL Calcium 8.7 8.7 - 10.7 mg/dL Chloride 102 99 - 108 Bicarbonate (CO2) 19(A) 22 - 30 mmol/L Creatinine 1.00 0.50 - 1.10 mg/dL eGFR 60.0 mL/min/1.7 3m*2 Comment:more than eGFR Non- 60.0 mL/min/1.7 3m*2 Comment:more than Glucose 209 Phosphorus, Serum 4.4 Potassium 3.8 3.4 - 5.5 Sodium 139 137 - 147 Blood specimen (specimen) Venous blood / Unknown 07/28/2019 12:13 PM CDT Narrative Inez Burnettsea, PRODUCTION COST ESTIMATOR - 07/28/2019 12:39 PM CDT GENERAL PEDIATRICIAN lab [facility] CLIA# [id number] [address] [place] [address] Director Anusha Wang MD Marlene Chicas WOUND CARE TECHNICIAN LAB BLOOD ORDERABLES Final Resul t documented in this encounter Visit Diagnoses Diagnosis Acute kidney failure, not otherwise specified (HCC) documented in this encounter Care Teams Evp Managing Director Relationship Specialty Start Date End Date Randa Ugarte MD [address] [place], [place] [address] PCP - General Internal Medicine 11/15/23 documented as of this encounter
--- OUTSIDE RECORDS SUMMARY | 2025-04-30 06:46 | XMS_ITS | Encounter Summary ---
Author Organization [facility] Address [address] [place] [address] Phone Care Team Providers Care Assistant Food Service Director Name Role Phone Randa Ugarte MD Primary Care Provider [phone] Encounter Details Date Type Department Care Team (Late st Contact Info) Description 07/18/2019 Orders Only [email or web address] [address] [place] [address] Lily Burnett LPN [address] [place] [address] Acute kidney failure, not otherwise [...] documented as of this encounter Visit Diagnoses Diagnosis Acute kidney failure, not otherwise specified (HCC) documented in this encounter Care Teams Assistant Food Service Director Relationship Specialty Start Date End Date Randa Ugarte MD [address] [place] [id number] PCP - General Internal Medicine 11/15/23 documented as of this encounter
--- OUTSIDE RECORDS SUMMARY | 2025-04-30 06:46 | XMS_ITS | Clinical Summary ---
Author Organization [facility] Address [address] [address] Care Team Providers Care Machine Biller Name Role Phone Randa Ugarte MD Primary Care Provider [phone] Allergies Active Allergy Reactions Criticality Noted Date Comments Amlodipine 05/29/2019 Other Reaction(s): Unknown Quetiapine Rash Low 06/24/2024 Medications aspirin 81 MG tablet Take 81 mg by mouth 1 (one) time each day Active hydrOXYzine (ATARAX) 25 MG tablet Take 25 mg by mouth 3 (three) times a day if needed for itching Active rosuvastatin (CRESTOR) 40 MG tablet Take 40 mg by mouth 1 (one) time each day Active omeprazole OTC (PriLOSEC OTC) 20 MG EC tablet Take 20 mg by mouth 1 (one) time each day Do not crush, chew, or split. Active lisinopril 40 MG tablet Take 40 mg by mouth 1 (one) time each day Active topiramate (TOPAMAX) 25 MG tablet Take 25 mg by mouth in the morning and 25 mg in the evening. Active escitalopram (LEXAPRO) 20 MG tablet Take 20 mg by mouth 1 (one) time each day Active metFORMIN (FORTAMET) 500 MG 24 hr tablet Take 500 mg by mouth 1 (one) time each day with dinner Do not crush, chew, or split. Active Active Problems Problem Noted Date Diagnosed Date Stage 3 chronic kidney disease 06/24/2024 Hypertension 06/24/2024 Type 2 diabetes mellitus wit h diabetic chronic kidney disease 06/24/2024 Acute nontraumatic kidney injury 07/29/2019 Encounters Date Type Department Care Team Description 02/04/2025 Telephone [facility] [address] [place] [address] Mayuri Scott MD from Last 3 Months Family History Medical History Relation Comments Hypertension Father Hypertension Mother Relation Status Comments Father Alive Mother Alive Social History Tobacco Use Types Packs/Day Years Used Date Smoking Tobacco: Every Day Cigarettes Smokeless Tobacco: Never Tobacco Cessation:Ready to Q uit: Not Asked; Counseling Given: Not Answered Alcohol Use Standard Drinks/Week Comments Never 0 [...] on file Sexual Orientation Not on file Last Filed Vital Signs Vital Sign Reading Time Taken Comments Blood Pressure 132/94 06/24/2024 9:21 AM CDT Pulse 84 06/24/2024 9:21 AM CDT Temperature - - Respiratory Rate - - Oxygen Saturation - - Inhaled Oxygen Concentration - - Weight 95.9 kg (211 lb 6.4 oz) 06/24/2024 9:21 A M CDT Height 149.9 cm (4' 11 ) 06/24/2024 9:21 AM CDT Body Mass Index 42.7 06/24/2024 9:21 AM CDT Plan of Treatment Health Maintenance Due Date Last Done Comments Hepatitis B Vaccine (1 of 3 - 19+ 3-dose series) 02/28 Pneumococcal Vaccine: Peds ( 0 to 5 Years) and At-Risk Patients (6 to 49 Years) (1 of 2 - PCV) 02/29/2012 Diabetes: Hemoglobin A1C 01/08/2020 Diabetes: Ophthalmology Exam 01/08/2020 Diabetes: Pedal Pulse Checked 01/08/2020 Diabetes: Sensory Foot Exam 01/08/2020 Diabetes: Visual Foot Exam 01/08/2020 Influenza Vaccine (#1) 2025 Insurance [facility] Medicaid Care Teams Machine Biller Relationship Specialty Start Date End Date Randa Ugarte MD [address] [place] [id number] PCP - General Internal Medicine 11/15/23
--- OUTSIDE RECORDS SUMMARY | 2025-04-30 06:46 | XMS_ITS | Encounter Summary ---
Author Organization [facility] Address [address] [place] [address] Phone Care Team Providers Care Legal Support Specialist Name Role Phone Randa Ugarte MD Primary Care Provider [phone] Encounter Details Date Type Department Care Team (Late st Contact Info) Description 06/23/2019 Orders Only [facility] [address] [place] [address] Lily Burnett LPN [address] [place] [address] Acute kidney failure, not otherwise [...] (HCC) documented in this encounter Care Teams Legal Support Specialist Relationship Specialty Start Date End Date Randa Ugarte MD [address] [place] [id number] PCP - General Internal Medicine 11/15/23 documented as of this encounter
--- OUTSIDE RECORDS SUMMARY | 2025-04-30 06:46 | XMS_ITS | Encounter Summary ---
Author Organization [employer] [facility] Address [address] [place] [address] Phone Care Team Providers Care Lead Sprinkler Name Role Phone Randa Ugarte MD Primary Care Provider [phone] Encounter Details Date Type Department Care Team (Late st Contact Info) Description 11/15/2023 Orders Only [facility] [address] [place] [address] Chronic kidney disease stage 3B (HCC) Social History Tobacco Use Types Packs/Day [...] as of this encounter Visit Diagnoses Diagnosis Chronic kidney disease stage 3B (HCC) documented in this encounter Care Teams Lead Sprinkler Relationship Specialty Start Date End Date Randa Ugarte MD [address] [place] [address] PCP - General Internal Medicine 11/15/23 documented as of this encounter
--- OUTSIDE RECORDS SUMMARY | 2025-04-30 06:46 | XMS_ITS | Encounter Summary ---
Author Organization [facility], [facility] Address [address] [place] [address] Phone Care Team Providers Care Visual Educator Name Role Phone Randa Ugarte MD Primary Care Provider [phone] Encounter Details Date Type Department Care Team (Late st Contact Info) Description 06/18/2019 Orders Only [facility], [facility] [address] [place] [address] Becca Figueroa MA [address] [place] [address] Acute kidney failure, not otherwise specified (HCC) Social History Tobacco Use Types Packs/Day Years Used Date Smoking Tobacco: Never Assessed AUDIT-C Answer Date Recorded Frequency of Alcohol Consumption Never 06/19/2019 Average Number of Drinks Not on file 019 Frequency of Binge Drinking Not on file 06/08 Comments Unknown Sex and Gender Information Value Date Recorded Sex Assigned at Not on file Legal Sex Female 12:17 PM EDT Gender Identity Not on file Sexual Orientation Not on file documented as of this encounter Functional Status documented as of this encounter Progress Notes * Yulissa Saucedo NP - 06/18/2019 2:01 AM CDT Please contact patient. Kidney function improved. No more dialysis. Please call Merry Chakraborty [facility] ASSISTANT office to arrange catheter removal, I spoke with Merry today and she said she had openings this week. Please get BMP next Sunday and set up hospital follow up in 4-6 weeks with [facility], [facility], [facility]. Thank you. uYlissa Saucedo NP documented in this encounter Plan of Treatment Not on file documented as of this encounter Procedures Procedure Name Priority Date/Time Associated Diagnosis Comments BASIC METABOLIC PANEL STAT 06/18/2019 9:40 AM CDT Acute kidney failure, not otherwise specified (HCC) documented in this encounter Results * Basic metabolic panel (06/18/2019 9:40 AM CDT) Sodium 139 mEq/L Potassium 3.9 mEq/L Chloride 99 Carbon Dioxide 25 mmol/L Calcium 8.5 mg/dL BUN 24 mg/dL Creatinine 2.72 mg/dL Glucose 183 mg/dL eGFR Non-Afr Mexican 21 eGFR 26 Blood specimen (specimen) Venous blood / Unknown 06/18/2019 9:40 AM CDT Narrative Lily Burnett LPN - 06/18/2019 9:59 AM CDT STAT as ordered Send results to [facility] CLIA# [id number] [address] [place] [id number] Director Anusha Wang MD us Yulissa Saucedo MEDICAL ASSISTANT LAB BLOOD ORDERABLES [place] Result documented in this encounter Visit Diagnoses Diagnosis Acute kidney failure, not otherwise specified (HCC) documented in this encounter Care Teams Visual Educator Relationship Specialty Start Date End Date Randa Ugarte MD [address] [place], [place] [id number] PCP - General Internal Medicine 11/15/23 documented as of this encounter
[2025-04-30 06:47] VITALS: BP 174/114; PULSE 83; RESP 18; O2SAT 98
[2025-04-30 06:51] VITALS: TEMP 36.8
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
[2025-04-30 07:30] LABS: Hematocrit 35.0 % (36-47); Hemoglobin 11.20 g/dL (11.27-16.99); Mean Corpuscular HGB Conc 32.0 g/dL (30-55); Mean Corpuscular Hemoglobin 29.5 pg (27-33); Mean Corpuscular Volume 92.1 fl (85-98); Nucleated Red Blood Cells % 0 %; Platelet Count 245 10^3/cmm (157-399); Red Blood Count 3.80 10^6/uL (3.85-5.65); White Blood Count 5.42 10^3/uL (3.29-11.43)
[2025-04-30 07:48] LABS: HCG, Serum Qual Negative (Negative)
[2025-04-30 07:50] LABS: Alanine Aminotransferase 10 U/L (0-33); Albumin Level 3.6 g/dL (3.5-5.2); Alkaline Phosphatase 79 U/L (35-105); Anion Gap 16.4 (5-19); Aspartate Amino Transferase 13 U/L (0-32); Blood Urea Nitrogen 13 mg/dL (6-20); Calcium 8.1 mg/dL (8.5-10.5); Carbon Dioxide 22 mmol/L (22-29); Chloride 103 mmol/L (98-107); Creatinine Clr Calc Pharmacy 127.2323; Globulin 2.8 g/dL (1.3-4.6); Glucose 181 mg/dL (65-115); Osmolality Calculated 291 mOsm/kg (285-295); Potassium 3.4 mmol/L (3.5-5.1); Sodium 138 mmol/L (136-145); Total Protein 6.4 g/dL (6.6-8.7)
[2025-04-30 07:51] VITALS: BP 161/112; PULSE 84; O2SAT 98
[2025-04-30 08:23] LABS: Glucose Urine UA Negative (Normal); Nitrate Urine Negative (Negative); Specific Gravity, Urine 1.020 (1.005-1.030)
[2025-04-30 08:28] LABS: Add Urine Microscopic? YES
[2025-04-30 09:00] VITALS: BP 125/84; PULSE 78; O2SAT 97
[2025-04-30 09:44] VITALS: BP 140/84; PULSE 76; O2SAT 98
== END 2025-04-30 09:45 | disposition home or self-care (01) ==
PROVIDERS: Emergency Provider Family Medicine; PCP Family Medicine
DX: R51.9 Headache, unspecified (principal); F07.81 Postconcussional syndrome; Z79.82 Long term (current) use of aspirin; Z72.0 Tobacco use; E11.9 Type 2 diabetes mellitus without complications; Z86.73 Personal history of transient ischemic attack (TIA), and cerebral infarction without residual deficits
CPT/HCPCS: 36415; 70450; 72125; 80053; 81001; 84703; 85025; 87086; 96374; 96375; 99285; J0780; J1885